=== PATIENT | male | born 1925 | race Caucasian/White ===

== ENCOUNTER → 2016-07-02 | Outpatient (CLI) | payer MEDICARE, BC | LOC: MW.CHIM 10:52 | PROVIDERS: ATTEND Internal Medicine | DX: E11.9 Type 2 diabetes mellitus without complications (principal); E78.5 Hyperlipidemia, unspecified; I10 Essential (primary) hypertension | CPT/HCPCS: 36415; 80053; 80061; 83036; 84439; 84443; 85025; 99214 ==

== ENCOUNTER 2017-03-22 08:50 | Observation (INO) | payer MEDICARE, BC ==
--- NOTE | 2017-03-22 08:54 | EDM.PDOC ---
ED HPI GENERAL MEDICAL PROBLEM - General Stated Complaint: HEAD INJURY FROM FALL Time Seen by Provider: 03/22/17 08:53 Source of Information: Reports: Patient - History of Present Illness INITIAL COMMENTS - FREE TEXT/NARRATIVE: HISTORY AND PHYSICAL: History of present illness: [Patient fell at home today he was standing in his bedroom doorway, he fell backwards striking his head on the bed frame with brief loss of consciousness reported by daughter. Patient has history of falls repeatedly recently there is a medication change with his primary care Dr. Prachi Fontana dropping one of his hypertension antihypertensive medications or believe amlodipine was stopped. He is on tamsulosin which may cause hypotension and syncope. He's had many falls in the past is also on a oral Keflex due to some sores on his legs from falling previously. At current complains of headache there is a dementia component as well as hard of hearing due to dementia component has trouble with short-term memory and relating recent events Denies fever nausea vomiting diarrhea constipation chest pain shortness breath headache dizziness palpitation denies bowel or urine symptoms he does wear depends which is also full of urine ] Review of systems: As per history of present illness and below otherwise all systems reviewed and negative. Past medical history: As per history of present illness and as reviewed below otherwise noncontributory. Surgical history: As per history of present illness and as reviewed below otherwise noncontributory. Social history: No reported history of drug or alcohol abuse. Family history: As per history of present illness and as reviewed below otherwise noncontributory. Physical exam: HEENT: Atraumatic, normocephalic, pupils reactive, negative for conjunctival pallor or scleral icterus, mucous membranes moist, throat clear, neck supple, nontender, trachea midline. Lungs: Clear to auscultation, breath sounds equal bilaterally, chest nontender. Heart: S1S2, regular, negative for clicks, rubs, or JVD. Abdomen: Soft, nondistended, nontender. Negative for masses or hepatosplenomegaly. Negative for costovertebral tenderness. Pelvis: Stable nontender. Genitourinary: Deferred. Rectal: Deferred. Extremities: Atraumatic, negative for cords or calf pain. Neurovascular unremarkable. Neuro: Awake, alert, oriented. Cranial nerves II through XII unremarkable. Cerebellum unremarkable. Motor and sensory unremarkable throughout. Exam nonfocal. Diagnostics: []Lab as below EKG Chest 1 view Pelvis [address] no contrast Cervical spine no contrast [employer]: []Admit to observation optimize medical management Richard Impression: Syncope []Fall Moderate calcification and carotids Possible tamsulosin the fact History of orthostatic hypotension History of previous cervical fracture Chronic history of baseline Definitive disposition and diagnosis as appropriate pending reevaluation and review of above. Head Pain Score (Numeric/FACES): 5 - Related Data Allergies Allergy/AdvReac Type Severity Reaction Status Date / Time No Known Allergies Allergy Unverified 03/22/17 09:15 Home Meds: Home Meds Allopurinol [Allopurinol] 100 mg PO DAILY 02/02/14 [History] Tamsulosin HCl [Tamsulosin HCl] 0.4 mg PO DAILY 02/02/14 [History] Levothyroxine [Synthroid] 50 mcg PO ACBREAKFAST 04/30/16 [History] Sertraline [Zoloft] 25 mg PO DAILY 04/30/16 [History] amLODIPine Besylate [Norvasc] 5 mg PO DAILY 04/30/16 [History] Past Medical History HEENT History: Reports: Hard of Hearing, Impaired Vision Cardiovascular History: Reports: High Cholesterol, Hypertension, Other (See Below) Other Cardiovascular History: hypotension Respiratory History: Reports: Other (See Below) Other Respiratory History: emphysema Genitourinary History: Reports: BPH Neurological History: Reports: Head Trauma Endocrine/Metabolic History: Reports: Diabetes, Type II, Hypothyroidism - Past Surgical History GI Surgical History: Reports: Other (See Below) Social & Family History - Family History Family Medical History: Unobtainable - Tobacco Use Smoking Status *Q: Never Smoker Second Hand Smoke Exposure: No - Caffeine Use Caffeine Use: Reports: None - Alcohol Use Days Per Week of Alcohol Use: 0 - Recreational Drug Use Recreational Drug Use: No ED ROS GENERAL - Review of Systems Review Of Systems: ROS reveals no pertinent complaints other than HPI. ED EXAM, GENERAL - Physical Exam Exam: See Below Course - Vital Signs Last Recorded V/S: Last Vital Signs Temp 96.8 F 03/22/17 09:22 Pulse 64 03/22/17 09:22 Resp 16 03/22/17 09:22 BP 173/75 H 03/22/17 09:22 Pulse Ox 94 L 03/22/17 09:22 - Orders/Labs/Meds Orders: Active Orders 24 hr Category Date Time Status EKG 12 Lead [EKG Documentation Completion] [RC] STAT Care 03/22/17 08:52 Active Orthostatic Vital Signs [RC] ASDIRECTED Care 03/22/17 10:07 Ordered UA W/MICROSCOPIC [URIN] Stat Lab 03/22/17 08:52 Uncollected Labs: Laboratory Tests 03/22/17 03/22/17 03/22/17 Range/Units 09:04 09:04 09:04 WBC 5.04 (4.0-11.0) K/uL RBC 4.03 L (4.50-5.90) M/uL Hgb 12.6 L (13.0-17.0) g/dL Hct 37.9 L (38.0-50.0) % MCV 94.0 (80.0-98.0) fL MCH 31.3 (27.0-32.0) pg MCHC 33.2 (31.0-37.0) g/dL RDW Std Deviation 49.6 (28.0-62.0) fl RDW Coeff of Pura 14 (11.0-15.0) % Plt Count 169 (150-400) K/uL MPV 9.10 (7.40-12.00) fL Neut % (Auto) 59.7 (48.0-80.0) % Lymph % (Auto) 28.6 (16.0-40.0) % Campbell % (Auto) 8.7 (0.0-15.0) % Eos % (Auto) 2.8 (0.0-7.0) % Baso % (Auto) 0.2 (0.0-1.5) % Neut # (Auto) 3.0 (1.4-5.7) K/uL Lymph # (Auto) 1.4 (0.6-2.4) K/uL Campbell # (Auto) 0.4 (0.0-0.8) K/uL Eos # (Auto) 0.1 (0.0-0.7) K/uL Baso # (Auto) 0.0 (0.0-0.1) K/uL Nucleated RBC % 0.0 /100WBC Nucleated RBCs # 0 K/uL INR 1.11 (0.86-1.11) Sodium 141 (136-146) mmol/L Potassium 4.3 (3.5-5.1) mmol/L Chloride 107 (98-110) mmol/L Carbon Dioxide 26 (21-31) mmol/L BUN 38 H (6.0-23.0) mg/dL Creatinine 1.7 H (0.6-1.5) mg/dL Est Cr Clr Drug Dosing TNP Estimated GFR (MDRD) 38.1 ml/min Glucose 96 (60-110) mg/dL Calcium 9.1 (8.8-10.8) mg/dL Total Bilirubin 0.6 (0.1-1.5) mg/dL AST 18 (5-40) IU/L ALT 14 (8-54) IU/L Alkaline Phosphatase 116 (40-150) Creatine Kinase 26 (9-236) IU/L CK-MB (CK-2) 1.3 (0-6.6) ng/ml Troponin I < 0.10 (0.0-0.29) NG/ML B-Natriuretic Peptide (<100) PG/ML Total Protein 6.5 (6.0-8.0) g/dL Albumin 3.1 L (3.4-4.8) g/dL Globulin 3.4 (2.0-3.5) g/dL Albumin/Globulin Ratio 0.9 L (1.3-2.8) 03/22/17 Range/Units 09:04 WBC (4.0-11.0) K/uL RBC (4.50-5.90) M/uL Hgb (13.0-17.0) g/dL Hct (38.0-50.0) % MCV (80.0-98.0) fL MCH (27.0-32.0) pg MCHC (31.0-37.0) g/dL RDW Std Deviation (28.0-62.0) fl RDW Coeff of Pura (11.0-15.0) % Plt Count (150-400) K/uL MPV (7.40-12.00) fL Neut % (Auto) (48.0-80.0) % Lymph % (Auto) (16.0-40.0) % Campbell % (Auto) (0.0-15.0) % Eos % (Auto) (0.0-7.0) % Baso % (Auto) (0.0-1.5) % Neut # (Auto) (1.4-5.7) K/uL Lymph # (Auto) (0.6-2.4) K/uL Campbell # (Auto) (0.0-0.8) K/uL Eos # (Auto) (0.0-0.7) K/uL Baso # (Auto) (0.0-0.1) K/uL Nucleated RBC % /100WBC Nucleated RBCs # K/uL INR (0.86-1.11) Sodium (136-146) mmol/L Potassium (3.5-5.1) mmol/L Chloride (98-110) mmol/L Carbon Dioxide (21-31) mmol/L BUN (6.0-23.0) mg/dL Creatinine (0.6-1.5) mg/dL Est Cr Clr Drug Dosing Estimated GFR (MDRD) ml/min Glucose (60-110) mg/dL Calcium (8.8-10.8) mg/dL Total Bilirubin (0.1-1.5) mg/dL AST (5-40) IU/L ALT (8-54) IU/L Alkaline Phosphatase (40-150) Creatine Kinase (9-236) IU/L CK-MB (CK-2) (0-6.6) ng/ml Troponin I (0.0-0.29) NG/ML B-Natriuretic Peptide 233 H (<100) PG/ML Total Protein (6.0-8.0) g/dL Albumin (3.4-4.8) g/dL Globulin (2.0-3.5) g/dL Albumin/Globulin Ratio (1.3-2.8) Departure - Departure Time of Disposition: 10:09 Disposition: Refer to Observation Condition: Fair Clinical Impression: Concussion with less than 1 hour loss of consciousness, Syncope - Discharge Information Referrals: Peng Cisneros MD [Primary Care Provider] - - My Orders Last 24 Hours: My Active Orders 03/22/17 08:52 EKG 12 Lead [EKG Documentation Completion] [RC] STAT UA W/MICROSCOPIC [URIN] Stat 03/22/17 10:07 Orthostatic Vital Signs [RC] ASDIRECTED - Assessment/Plan Last 24 Hours: My Active Orders 03/22/17 08:52 EKG 12 Lead [EKG Documentation Completion] [RC] STAT UA W/MICROSCOPIC [URIN] Stat 03/22/17 10:07 Orthostatic Vital Signs [RC] ASDIRECTED
[2017-03-22 09:34] LABS: CHLORIDE,CL 107 mmol/L (98-110); SODIUM,NA 141 mmol/L (136-146)
--- NOTE | 2017-03-22 09:47 | CT ---
EXAMINATION: Non contrast CT head. Coronal and sagittal reformats. HISTORY: Syncope FINDINGS: No evidence of intra or extra axial hemorrhage, mass, midline shift, hydrocephalus or edema. There i s moderate generalized atrophy. No hypoattenuation changes in the major vascular territories to suggest acute infarct. No abnormal intracranial calcifications are detected. No evidence of substantial vascular calcificat ions. Paranasal sinuses and mastoid air cells are well aerated without substantial findings. Orbits and gl obes are symmetric. Pituitary fossa appears unremarkable. Calvarium is intact. No evidence of skull fracture. Mild focal subcutaneous edema within the left par ietal region. IMPRESSION: 1. No acute intracranial findings. 2. Moderate generalized atrophy.
--- NOTE | 2017-03-22 09:51 | CT ---
EXAMINATION: CT cervical spine HISTORY: Syncope COMPARISON: None TECHNIQUE: Axial CT images obtained through the cervical spine without contrast. Coronal and sagittal reconstructions obtained. FINDINGS: There is a chronic nonhealed fracture of the dens with fusion of the superior aspect to the anterior arch of C1. There is partial osseous fusion of C3 and C4 following the vertebral bodies, th ere is facet fusion from C2 to C5. There is reversal of the normal cervical lordosis. There is no def inite acute fracture. Bone mineralization appears normal to mildly osteopenic. Moderate calcification s noted within the superior internal carotid arteries. The lung apices are clear. IMPRESSION: 1. Moderate degenerative changes with multilevel fusion without acute osseous abnormality. 2. Chronic nonunited fracture of the dens. 3. Moderate internal carotid calcifications.
--- NOTE | 2017-03-22 09:53 | CR ---
EXAMINATION: AP chest radiograph. HISTORY: Syncope. FINDINGS: The trachea is midline. The cardiomediastinal silhouette is within normal limits. No pulmonary infilt rates, effusions or pneumothorax. Mild interstitial prominence. The aortic knob is prominent, likely accentuated by technique. Osseous structures appear unremarkable. IMPRESSION: No acute cardiopulmonary process.
--- NOTE | 2017-03-22 09:57 | CR ---
EXAMINATION: Pelvis HISTORY: Syncope COMPARISON: 01/23/2016 TECHNIQUE: AP views FINDINGS: There is advanced osteoarthritic changes and joint space narrowing within the right hip. Th ere is no definite fracture or dislocation. Bone mineralization appears mildly osteopenic. Fusion of the SI joints noted. The iliopectineal lines are intact. IMPRESSION: 1. No definite acute osseous abdomen. 2. 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
--- NOTE | 2017-03-22 12:18 | PCM.HP ---
Addendum entered and electronically signed by Chiara Jean NP 03/22/17 16:44 : EKG in ED revealed SR 57 with LBBB, which is no change from 04/2016 Original Note: H&P History of Present Illness - General Date of Service: 03/22/17 Admit Problem/Dx: Fall, syncope - History of Present Illness Initial Comments - Free Text/Narative: This 89 year old male with pmh of BPH, HTN, dementia and frequent falls at home presented to the ED today with a concern for syncope. He reportedly was standing at his bedroom doorway and feel backwards, hitting his head on the bed frame with a brief LOC, per his daughter's report. Daughter is not available at this time, but will be back later this afternoon. Patient is poor historian due to dementia. Denies any chest pain, SOB or abdominal pain. Does have a headache and pointed to behind L ear as to where is hurts. [place]. He denies dizziness or lightheadedness. He recently was seen, 03/[address] Cisneros's office, his PCP for frequent falls and chronic orthostasis. His Amlodipine was discontinued and leaving Tamsulosin for HTN and BPH. He has had falls in the past and has abrasions to bilateral knees, which he was also placed on Keflex 500 mg Q6hrs for cellulitis. In ED CBC WNL, BMP Cr 1.7 and BUN 38 which is baseline. BNP 233, Head CT negative did show some subcutaneous soft tissue edema to L parietal region. Cervical CT negative. CXR negative and Pelvic Xray negative as well. R knee xray negative as well for fracture or dislocation. Orthostasis noted on VS. Supine 189/75, sitting 154/74, standing 140/83. He will be admitted for syncope likely caused by orthostasis. PCP, Dr Cisneros. Discussed with daughter Winsome and regarding fall at home. The daughter reports he falls a lot at home, this is nothing new. He has been complaining of dizziness and headache to his daughter. The headache is normally at bedtime. The abrasions to his legs are from his toe nail scratching his legs at night. He normally is incontinent at night and voids well normally. The daughter reports he was on another medication for BPH a few years ago and that was stopped because of falling but the Tamsulosin was kept. Head Pain Score (Numeric/FACES): 5 - Related Data Allergies/Adverse Reactions: Allergies Allergy/AdvReac Type Severity Reaction Status Date / Time No Known Allergies Allergy Unverified 03/22/17 09:15 Home Medications: Home Meds Albuterol Sulfate 5 mg IH Q4HR 03/22/17 [History] Allopurinol [Zyloprim] 100 mg PO DAILY 03/22/17 [History] Cephalexin [IJP: Cephalexin] 500 mg PO .EVERY 8 HOURS 03/22/17 [History] Levothyroxine Sodium [Levo-T] 50 mcg PO DAILY 03/22/17 [History] Sertraline HCl 25 mg PO DAILY 03/22/17 [History] Tamsulosin [Flomax] 0.4 mg PO ONETIME 03/22/17 [History] Past Medical History HEENT History: Reports: Hard of Hearing, Impaired Vision Cardiovascular History: Reports: High Cholesterol, Hypertension, Other (See Below) Other Cardiovascular History: hypotension Respiratory History: Reports: Other (See Below) Other Respiratory History: emphysema Genitourinary History: Reports: BPH Musculoskeletal History: Reports: Other (See Below) (Hx of cervical fracture, C2 ) Neurological History: Reports: Head Trauma Endocrine/Metabolic History: Reports: Diabetes, Type II, Hypothyroidism - Past Surgical History GI Surgical History: Reports: Other (See Below) Social & Family History - Family History Family Medical History: Unobtainable - Tobacco Use Smoking Status *Q: Never Smoker Second Hand Smoke Exposure: No - Caffeine Use Caffeine Use: Reports: Coffee - Alcohol Use Days Per Week of Alcohol Use: 0 - Recreational Drug Use Recreational Drug Use: No - Living Situation & Occupation Living situation: Reports: with Family Occupation: Retired H&P Review of Systems - Review of Systems: Review Of Systems: See Below General: Denies: Fever, Chills HEENT: Reports: Headaches (points to behind L ear) Pulmonary: Reports: Cough. Denies: Shortness of Breath, Sputum Cardiovascular: Reports: Blood Pressure Problem. Denies: Chest Pain, Edema Gastrointestinal: Reports: No Symptoms, Flatus. Denies: Abdominal Pain, Black Stool, Bloody Stool, Nausea, Vomiting Exam - Exam Exam: See Below - Vital Signs Vital Signs: Last Vital Signs Temp 96.8 F 03/22/17 09:22 Pulse 64 03/22/17 09:22 Resp 16 03/22/17 09:22 BP 173/75 H 03/22/17 09:22 Pulse Ox 94 L 03/22/17 09:22 - Exam General: Alert, Cooperative. No: Oriented HEENT: Conjunctiva Clear, Nares Patent, Other (very [place]) Neck: Supple, Trachea Midline Lungs: Clear to Auscultation, Normal Respiratory Effort Cardiovascular: Regular Rate, Regular Rhythm GI/Abdominal Exam: Normal Bowel Sounds, Soft, Non-Tender, No Organomegaly, No Distention, No Abnormal Bruit, No Mass, Pelvis Stable Extremities: Normal Inspection, Normal Range of Motion, Non-Tender Skin: Wound (abrasion and healing wounds noted along L zapata and 1 x 1 in scab noted to lateral lower leg, dry, no necrotic tissue, scant surrounding erythema. tender to palpation. No drainage or edema. ) Neurological: Strength Equal Bilateral, Normal Speech Neuro Extensive - Mental Status: Alert, Normal Mood/Affect, Memory Loss-Remote Events, Memory Loss-Recent Events. No: Oriented x3 Neuro Extensive - Motor, Sensory, Reflexes: CN II-XII Intact Psychiatric: Alert, Normal Affect, Normal Mood - Patient Data Result Diagrams: 03/22/17 09:04 03/22/17 09:04 *Q Meaningful Use (ADM) - VTE *Q VTE Criteria *Q: - Stroke *Q Stroke Criteria *Q: - AMI *Q AMI Criteria *Q: - Problem List (1) Syncope SNOMED Code(s): 423412147 ICD Code: R55 - SYNCOPE AND COLLAPSE Status: Acute Current Visit: Yes (2) Fall from ground level SNOMED Code(s): 95256528 ICD Code: W18.30XA - FALL ON SAME LEVEL, UNSPECIFIED, INITIAL ENCOUNTER Status: Acute Current Visit: No (3) Concussion with less than 1 hour loss of consciousness SNOMED Code(s): 050900223 ICD Code: S06.0X9A - CONCUSSION W LOSS OF CONSCIOUSNESS OF UNSP DURATION, INIT Status: Acute Current Visit: Yes (4) History of cervical fracture SNOMED Code(s): 208029254 ICD Code: Z87.81 - PERSONAL HISTORY OF (HEALED) TRAUMATIC FRACTURE Status: Chronic Current Visit: Yes (5) Dementia SNOMED Code(s): 69164930 ICD Code: F03.90 - UNSPECIFIED DEMENTIA WITHOUT BEHAVIORAL DISTURBANCE Status: Chronic Current Visit: Yes (6) Frequent falls SNOMED Code(s): 163167259 ICD Code: R29.6 - REPEATED FALLS Status: Chronic Current Visit: Yes (7) BPH (benign prostatic hyperplasia) SNOMED Code(s): 055161467 ICD Code: N40.0 - BENIGN PROSTATIC HYPERPLASIA WITHOUT LOWER URINRY TRACT SYMP Status: Chronic Current Visit: Yes (8) HTN (hypertension) SNOMED Code(s): 63883547 ICD Code: I10 - ESSENTIAL (PRIMARY) HYPERTENSION Status: Chronic Current Visit: Yes Qualifiers: Hypertension type: essential hypertension Qualified Code(s): I10 - Essential (primary) hypertension (9) Emphysema SNOMED Code(s): 97107402 ICD Code: J43.9 - EMPHYSEMA, UNSPECIFIED Status: Chronic Current Visit: Yes Problem List Initiated/Reviewed/Updated: Yes Orders Last 24hrs: Active Orders 24 hr Category Date Time Status Telemetry Monitoring [Cardiac Monitoring] [RC] Q8H Care 03/22/17 11:09 Active Assessment/Plan Comment:: This 89 year old male admitted with syncope and fall at home 1. Syncope: Likely related to Orthostasis which could be related to Tamsulosin. Will hold this for now. Will monitor BP, may need to restart Amlodipine which was recently stopped. Consult PT. Orthostatic VS Qshift. No signs of dehydration. Encourage PO intake. Daughter reports possible desaturation with hx emphysema, will monitor oxygen. 2. HTN: Monitor as above may need to restart Amlodipine 3. Falls: PT consulted. Will speak with Daughter when available as to any services she may need, such as Home Health. Daughter reports this would be good to have some PT at home. 4. Abrasions to L zapata: Scant erythema, continue Keflex as prescribed by PCP for now. No leukocytosis VTE prophylaxis: SCDs only for now due to frequent falls and recent head trauma Dispo: 1-2 days pending improvement.
--- NOTE | 2017-03-22 12:57 | CR ---
EXAMINATION: Right knee HISTORY: Pain COMPARISON: None TECHNIQUE: 3 views FINDINGS/IMPRESSION: There is moderate joint space narrowing within the medial compartment and less s o within the patellar and lateral compartments. Chondrocalcinosis is noted. Bone mineralization appea rs mildly osteopenic. No fracture, dislocation, or joint effusion.
[2017-03-22] MEDS: Acetaminophen 325 MG Tab PO PRN (14:26)
[2017-03-22] MEDS ORDERED: Albuterol 0.083% 2.5 MG/3 ML Neb Soln INH PRN (15:17)
[2017-03-22] MEDS ORDERED: Ondansetron 4 MG/2 ML SDV IVPUSH PRN (15:21)
[2017-03-22] MEDS: Cephalexin 500 MG Cap PO SCH ×2 (15:53→23:28)
[2017-03-23] MEDS: Cephalexin 500 MG Cap PO SCH ×3 (06:38→22:41)
[2017-03-23] MEDS: Levothyroxine 50 MCG Tab PO SCH (06:38)
[2017-03-23] MEDS: Sertraline 25 MG Tab PO SCH (08:12)
[2017-03-23] MEDS: Allopurinol 100 MG Tab PO SCH (08:12)
[2017-03-23] MEDS: amLODIPine 5 MG Tab PO SCH (10:48)
--- NOTE | 2017-03-23 10:57 | PCM.PN ---
- General Info Date of Service: 03/23/17 Admission Dx/Problem (Free Text): Fall, syncope Subjective Update: Doing well this morning, no complaints of dizziness or lightheadedness. Small headache but reports it is better. Daughter at bedside. He denies chest pain or SOB Functional Status: Reports: Pain Controlled, Tolerating Diet, Ambulating, Urinating - Review of Systems General: Reports: No Symptoms. Denies: Fever HEENT: Reports: Headaches. Denies: Eye Pain, Sore Throat, Visual Changes Pulmonary: Reports: No Symptoms. Denies: Shortness of Breath Cardiovascular: Reports: No Symptoms. Denies: Chest Pain Gastrointestinal: Reports: No Symptoms. Denies: Abdominal Pain, Nausea, Vomiting Genitourinary: Reports: Incontinence. Denies: Dysuria, Frequency, Burning - Patient Data Vitals - Most Recent: Last Vital Signs Temp 96.3 F 03/23/17 08:00 Pulse 51 L 03/23/17 08:00 Resp 22 H 03/23/17 08:00 BP 159/71 H 03/23/17 10:48 Pulse Ox 91 L 03/23/17 08:00 Orthostatic Blood Pressure [ 111/51 Standing] Orthostatic Blood Pressure [ 151/69 Sitting] Orthostatic Blood Pressure [ 159/71 Supine] Weight - Most Recent: 70.76 kg I&O - Last 24 Hours: Intake & Output 03/22/17 03/23/17 03/23/17 22:59 06:59 14:59 Intake Total 600 836 Output Total 495 Balance 600 341 Med Orders - Current: Current Medications Acetaminophen (Tylenol) 650 mg PO Q6H PRN PRN Reason: Pain Last Admin: 03/22/17 14:26 Dose: 650 mg Albuterol (Proventil Neb Soln) 5 mg INH Q4HR PRN PRN Reason: SOB/wheezing Allopurinol (Zyloprim) 100 mg PO DAILY [facility] Last Admin: 03/23/17 08:12 Dose: 100 mg Amlodipine Besylate (Norvasc) 10 mg PO DAILY [facility] Last Admin: 03/23/17 10:48 Dose: 10 mg Cephalexin (Keflex) 500 mg PO Q8H [facility] Last Admin: 03/23/17 06:38 Dose: 500 mg Levothyroxine Sodium (Synthroid) 50 mcg PO ACBREAKFAST [facility] Last Admin: 03/23/17 06:38 Dose: 50 mcg Ondansetron HCl (Zofran) 4 mg IVPUSH Q4H PRN PRN Reason: Nausea Sertraline HCl (Zoloft) 25 mg PO DAILY [facility] Last Admin: 03/23/17 08:12 Dose: 25 mg - Exam Quality Assessment: Supplemental Oxygen General: Alert, Oriented, Cooperative Neck: Supple Lungs: Clear to Auscultation, Normal Respiratory Effort Cardiovascular: Regular Rate, Regular Rhythm GI/Abdominal Exam: Normal Bowel Sounds, Soft, Non-Tender, No Organomegaly, No Distention, No Abnormal Bruit, No Mass, Pelvis Stable Extremities: Normal Inspection, Normal Range of Motion, Non-Tender, No Pedal Edema, Normal Capillary Refill Wound/Incisions: No Drainage (L lower extremity), Erythema Improving Psy/Mental Status: Alert, Normal Affect, Normal Mood - Problem List & Annotations (1) Orthostasis SNOMED Code(s): 989680605 Code(s): I95.1 - ORTHOSTATIC HYPOTENSION Status: Acute Current Visit: Yes (2) Syncope SNOMED Code(s): 524550557 Code(s): R55 - SYNCOPE AND COLLAPSE Status: Acute Current Visit: Yes (3) Fall from ground level SNOMED Code(s): 26350935 Code(s): W18.30XA - FALL ON SAME LEVEL, UNSPECIFIED, INITIAL ENCOUNTER Status: Acute Current Visit: No (4) Concussion with less than 1 hour loss of consciousness SNOMED Code(s): 214412700 Code(s): S06.0X9A - CONCUSSION W LOSS OF CONSCIOUSNESS OF UNSP DURATION, INIT Status: Acute Current Visit: Yes (5) History of cervical fracture SNOMED Code(s): 639350957 Code(s): Z87.81 - PERSONAL HISTORY OF (HEALED) TRAUMATIC FRACTURE Status: Chronic Current Visit: Yes (6) Dementia SNOMED Code(s): 20361009 Code(s): F03.90 - UNSPECIFIED DEMENTIA WITHOUT BEHAVIORAL DISTURBANCE Status: Chronic Current Visit: Yes (7) Frequent falls SNOMED Code(s): 094088375 Code(s): R29.6 - REPEATED FALLS Status: Chronic Current Visit: Yes (8) BPH (benign prostatic hyperplasia) SNOMED Code(s): 241855606 Code(s): N40.0 - BENIGN PROSTATIC HYPERPLASIA WITHOUT LOWER URINRY TRACT SYMP Status: Chronic Current Visit: Yes (9) HTN (hypertension) SNOMED Code(s): 49136292 Code(s): I10 - ESSENTIAL (PRIMARY) HYPERTENSION Status: Chronic Current Visit: Yes Qualifiers: Hypertension type: essential hypertension Qualified Code(s): I10 - Essential (primary) hypertension (10) Emphysema SNOMED Code(s): 33196773 Code(s): J43.9 - EMPHYSEMA, UNSPECIFIED Status: Chronic Current Visit: Yes - Problem List Review Problem List Initiated/Reviewed/Updated: Yes - My Orders Last 24 Hours: My Active Orders 03/22/17 14:19 Acetaminophen [Tylenol] 650 mg PO Q6H PRN 03/22/17 15:13 Consult to Physical Therapy [PT Evaluation and Treatment] [CONS] Routine 03/22/17 15:17 Albuterol [Proventil Neb Soln] 5 mg INH Q4HR PRN 03/22/17 15:21 Oxygen Therapy [RC] PRN Up With Assistance [RC] ASDIRECTED VTE/DVT Education [RC] PER UNIT ROUTINE Vital Signs [RC] Q4H Ondansetron [Zofran] 4 mg IVPUSH Q4H PRN 03/22/17 15:22 Antiembolic Devices [RC] PER UNIT ROUTINE Intake and Output [RC] QSHIFT Sequential Compression Device [OM.PC] Per Unit Routine 03/22/17 15:30 Cephalexin [Keflex] 500 mg PO Q8H 03/22/17 16:28 Resuscitation Status Routine 03/22/17 Lunch Heart Healthy Diet [DIET] 03/23/17 07:30 Levothyroxine [Synthroid] 50 mcg PO ACBREAKFAST 03/23/17 08:09 Orthostatic Vital Signs [RC] ASDIRECTED 03/23/17 08:44 Communication Order [RC] PRN 03/23/17 09:00 Allopurinol [Zyloprim] 100 mg PO DAILY Sertraline [Zoloft] 25 mg PO DAILY amLODIPine [Norvasc] 10 mg PO DAILY - Plan Plan:: This 89 year old male admitted with syncope and fall at home 1. Syncope: Continues to be Orthostatic this morning, will give 1 l NS this morning. Monitor today. Tamsulosin discontinued. Restart Amlodipine 10 mg today , per recommendations of Dr Cardona. Consult PT. Orthostatic VS Qshift. Encourage PO intake. 2. HTN: Restart Amlodipine at 10 mg daily. Monitor. 3. Falls: PT consulted. Will speak with Daughter when available as to any services she may need, such as Home Health. Daughter reports this would be good to have some PT at home. 4. Abrasions to L zapata: Improving. Continue Keflex as prescribed by PCP for now. VTE prophylaxis: SCDs only for now due to frequent falls and recent head trauma Dispo: 1-2 days pending improvement.
[2017-03-23] MEDS ORDERED: Sodium Chloride 0.9% 1,000 ML IV SCH (11:00)
[2017-03-23] MEDS: Acetaminophen 325 MG Tab PO PRN (14:35)
[2017-03-24] MEDS: Levothyroxine 50 MCG Tab PO SCH (07:38)
[2017-03-24] MEDS: Cephalexin 500 MG Cap PO SCH (07:39)
--- NOTE | 2017-03-24 08:09 | PCM.DCSUM1 ---
Discharge Summary - Hospital Course Brief History: This 89 year old male with pmh of BPH, HTN, dementia and frequent falls at home presented to the ED with a concern for syncope. He reportedly was standing at his bedroom doorway and feel backwards, hitting his head on the bed frame with a brief LOC, per his daughter's report. Daughter is not available at this time, but will be back later this afternoon. Patient is poor historian due to dementia. Denies any chest pain, SOB or abdominal pain. Does have a headache and pointed to behind L ear as to where is hurts. Very [place]. He denies dizziness or lightheadedness. He recently was seen, 03/[address] Cisneros's office, his PCP for frequent falls and chronic orthostasis. His Amlodipine was discontinued and leaving Tamsulosin for HTN and BPH. He has had falls in the past and has abrasions to bilateral knees, which he was also placed on Keflex 500 mg Q6hrs for cellulitis. In ED CBC WNL, BMP Cr 1.7 and BUN 38 which is baseline. BNP 233, Head CT negative did show some subcutaneous soft tissue edema to L parietal region. Cervical CT negative. CXR negative and Pelvic Xray negative as well. R knee xray negative as well for fracture or dislocation. Orthostasis noted on VS. Supine 189/75, sitting 154/74, standing 140/83. He will be admitted for syncope likely caused by orthostasis. PCP, Dr Cisneros. Discussed with daughter Winsome and regarding fall at home. The daughter reports he falls a lot at home, this is nothing new. He has been complaining of dizziness and headache to his daughter. The headache is normally at bedtime. The abrasions to his legs are from his toe nail scratching his legs at night. He normally is incontinent at night and voids well normally. The daughter reports he was on another medication for BPH a few years ago and that was stopped because of falling but the Tamsulosin was kept. - Discharge Data Discharge Date: 03/24/17 Discharge Disposition: Home, W Home Health Agency 06 Condition: Good - Discharge Diagnosis/Problem(s) (1) Orthostasis SNOMED Code(s): 265575477 ICD Code: I95.1 - ORTHOSTATIC HYPOTENSION Status: Acute Current Visit: Yes (2) Syncope SNOMED Code(s): 974517983 ICD Code: R55 - SYNCOPE AND COLLAPSE Status: Acute Current Visit: Yes (3) Fall from ground level SNOMED Code(s): 81237317 ICD Code: W18.30XA - FALL ON SAME LEVEL, UNSPECIFIED, INITIAL ENCOUNTER Status: Acute Current Visit: No (4) Concussion with less than 1 hour loss of consciousness SNOMED Code(s): 473246023 ICD Code: S06.0X9A - CONCUSSION W LOSS OF CONSCIOUSNESS OF UNSP DURATION, INIT Status: Acute Current Visit: Yes (5) History of cervical fracture SNOMED Code(s): 632658918 ICD Code: Z87.81 - PERSONAL HISTORY OF (HEALED) TRAUMATIC FRACTURE Status: Chronic Current Visit: Yes (6) Dementia SNOMED Code(s): 52905848 ICD Code: F03.90 - UNSPECIFIED DEMENTIA WITHOUT BEHAVIORAL DISTURBANCE Status: Chronic Current Visit: Yes (7) Frequent falls SNOMED Code(s): 956264834 ICD Code: R29.6 - REPEATED FALLS Status: Chronic Current Visit: Yes (8) BPH (benign prostatic hyperplasia) SNOMED Code(s): 117392777 ICD Code: N40.0 - BENIGN PROSTATIC HYPERPLASIA WITHOUT LOWER URINRY TRACT SYMP Status: Chronic Current Visit: Yes (9) HTN (hypertension) SNOMED Code(s): 20036824 ICD Code: I10 - ESSENTIAL (PRIMARY) HYPERTENSION Status: Chronic Current Visit: Yes Qualifiers: Hypertension type: essential hypertension Qualified Code(s): I10 - Essential (primary) hypertension (10) Emphysema SNOMED Code(s): 84324970 ICD Code: J43.9 - EMPHYSEMA, UNSPECIFIED Status: Chronic Current Visit: Yes - Patient Summary/Data Consults: Consultations 03/22/17 15:13 Consult to Physical Therapy [PT Evaluation and Treatment] [CONS] Routine - Patient Instructions Diet: Drink 8-10+ Glasses/Day Activity: As Tolerated Driving: Do Not Drive Showering/Bathing: May Shower Notify Provider of: Fever, Increased Pain, Swelling and Redness, Drainage, Nausea and/or Vomiting Other/Special Instructions: Compression stockings. - Discharge Plan Prescriptions/Med Rec: amLODIPine [Norvasc] 5 mg PO DAILY #30 tablet Home Medications: Home Meds Albuterol Sulfate 5 mg IH Q4HR 03/22/17 [History] Allopurinol [Zyloprim] 100 mg PO DAILY 03/22/17 [History] Levothyroxine Sodium [Levo-T] 50 mcg PO DAILY 03/22/17 [History] Sertraline HCl 25 mg PO DAILY 03/22/17 [History] Cephalexin [IJP: Cephalexin] 500 mg PO .EVERY 8 HOURS #0 03/24/17 [Rx] amLODIPine [Norvasc] 5 mg PO DAILY #30 tablet 03/24/17 [Rx] Patient Handouts: Syncope, [id number] Referrals: Peng Cisneros MD [Primary Care Provider] - 03/31/17 8:30 am - Discharge Summary/Plan Comment DC Time >30 min.: No Discharge Summary/Plan Comment: Discharge Diagnoses: Acute on chronic Orthostasis Fall with head trauma Syncope BPH Emphysema Incontinent Limited mobility Carlos was admitted for syncope and fall with head trauma. He was noted to be on Tamsulosin, which was discontinued due to orthostasis noted. He was given 1 L fluid, which helped Orthostasis. He is known to have this chronically after review of clinic records. He was started back on Amlodipine 10 mg initially due to BP being 160-180 SBP, today BP 114 SBP, will back off to home dosing of 5 mg daily. He has been up ambulating with PT well. He does need walker with moderate assistance. I have ordered for a gait belt to be provided so daughter is able to assist him safely upon ambulation and limit falling episodes. He has a slight headache still, no CT findings of bleeding. L Parietal region tender to palpation. He will be discharged home today with all home medications restarted, except for Tamsulosin. He is to follow up with PCP in 1 week. He will also be sent home with Home Health. He is in need of intermediate care to monitor his blood pressures more carefully and medications. He would also benefit from PT to evaluate and treat due to deconditioning, unsteady gait and orthostasis. He is homebound mainly and is unable to leave the house unless the area transit is called and needs caregiver plus assistive device to ambulate. Home Health care plan to be followed by Dr Cisneros, PCP. He is to return to ED or clinic if concerns should arise. Daughter updated and is agreeable for discharge home. - General Info Date of Service: 03/24/17 Admission Dx/Problem (Free Text: Fall, syncope Subjective Update: Doing well this morning, scant headache. No chest pain or SOB. Feeling good. Functional Status: Reports: Pain Controlled, Tolerating Diet, Ambulating, Urinating - Review of Systems Pulmonary: Reports: No Symptoms. Denies: Shortness of Breath, Cough, Sputum Cardiovascular: Reports: No Symptoms. Denies: Chest Pain, Edema Genitourinary: Reports: Incontinence Musculoskeletal: Reports: No Symptoms. Denies: Neck Pain Psychiatric: Reports: No Symptoms. Denies: Confusion - Patient Data Vitals - Most Recent: Last Vital Signs Temp 96.9 F 03/24/17 07:45 Pulse 57 L 03/24/17 07:45 Resp 18 03/24/17 07:45 BP 125/61 03/24/17 00:00 Pulse Ox 95 03/24/17 07:45 Orthostatic Blood Pressure [ 140/62 Standing] Orthostatic Blood Pressure [ 147/66 Sitting] Orthostatic Blood Pressure [ 153/69 Supine] Weight - Most Recent: 70.76 kg I&O - Last 24 hours: Intake & Output 03/23/17 03/24/17 03/24/17 22:59 06:59 14:59 Intake Total 2044 1080 Balance 2044 1080 Med Orders - Current: Current Medications Acetaminophen (Tylenol) 650 mg PO Q6H PRN PRN Reason: Pain Last Admin: 03/23/17 14:35 Dose: 650 mg Albuterol (Proventil Neb Soln) 5 mg INH Q4HR PRN PRN Reason: SOB/wheezing Allopurinol (Zyloprim) 100 mg PO DAILY [facility] Last Admin: 03/23/17 08:12 Dose: 100 mg Amlodipine Besylate (Norvasc) 10 mg PO DAILY [facility] Last Admin: 03/23/17 10:48 Dose: 10 mg Cephalexin (Keflex) 500 mg PO Q8H [facility] Last Admin: 03/24/17 07:39 Dose: 500 mg Levothyroxine Sodium (Synthroid) 50 mcg PO ACBREAKFAST [facility] Last Admin: 03/24/17 07:38 Dose: 50 mcg Ondansetron HCl (Zofran) 4 mg IVPUSH Q4H PRN PRN Reason: Nausea Sertraline HCl (Zoloft) 25 mg PO DAILY [facility] Last Admin: 03/23/17 08:12 Dose: 25 mg Discontinued Medications Sodium Chloride (Normal Saline) 1,000 mls @ 100 mls/hr IV ASDIRECTED TED Stop: 03/23/17 20:59 Last Admin: 03/23/17 13:23 Dose: 100 mls/hr - Exam General: Reports: Alert, Cooperative, No Acute Distress. Denies: Oriented Neck: Reports: Other (tenderness to L parietal region, no bruising noted. But this is where he hit his head during fall. ) Lungs: Reports: Clear to Auscultation, Normal Respiratory Effort Cardiovascular: Reports: Regular Rate, Regular Rhythm GI/Abdominal Exam: Normal Bowel Sounds, Soft, Non-Tender, No Organomegaly, No Distention, No Abnormal Bruit, No Mass, Pelvis Stable Extremities: Normal Inspection, Normal Range of Motion, Non-Tender, No Pedal Edema, Normal Capillary Refill Wound/Incisions: Reports: Healing Well, Erythema Improving (Healing abrasions to anterior L zapata, continue antibiotics prescribed as outpatient until gone. No concerns of cellulitis. ) Neurological: Reports: No New Focal Deficit, Normal Speech, Strength Equal Bilateral Psy/Mental Status: Reports: Alert, Normal Affect, Normal Mood *Q Meaningful Use (DIS) - VTE *Q VTE Criteria *Q: - Stroke *Q Stroke Criteria *Q: - AMI *Q AMI Criteria *Q:
[2017-03-24] MEDS: Sertraline 25 MG Tab PO SCH (09:39)
[2017-03-24] MEDS: Allopurinol 100 MG Tab PO SCH (09:39)
[2017-03-24] MEDS: amLODIPine 5 MG Tab PO SCH (09:42)
[2017-03-24 09:43] VITALS: BP 114/46
== END 2017-03-24 13:15 | disposition home health service (06) ==
LOC: MW.ED 08:50 → MW.MS 11:17
PROVIDERS: ADMIT Internal Medicine; ATTEND Internal Medicine
DX: S06.9X9A Unspecified intracranial injury with loss of consciousness of unspecified duration, initial encounter (principal); I95.1 Orthostatic hypotension; F03.90 Unspecified dementia, unspecified severity, without behavioral disturbance, psychotic disturbance, mood disturbance, and anxiety; I10 Essential (primary) hypertension; N40.0 Benign prostatic hyperplasia without lower urinary tract symptoms; I44.7 Left bundle-branch block, unspecified; E78.00 Pure hypercholesterolemia, unspecified; E11.9 Type 2 diabetes mellitus without complications; J43.9 Emphysema, unspecified; L03.116 Cellulitis of left lower limb; R29.6 Repeated falls; W18.30XA Fall on same level, unspecified, initial encounter; Z91.81 History of falling; Z79.899 Other long term (current) drug therapy; Z98.890 Other specified postprocedural states; Z87.81 Personal history of (healed) traumatic fracture
CPT/HCPCS: 36415; 70450; 71010; 72125; 72170; 73562; 80053; 82550; 82553; 83880; 84484; 85025; 85610; 93005; 97161; 97530; 99285; A9270; J7040; 96360; 96361; 99284; G0378

== ENCOUNTER 2017-05-19 14:20 | Observation (INO) | payer MEDICARE, BC ==
--- NOTE | 2017-05-19 14:36 | EDM.PDOC ---
ED HPI GENERAL MEDICAL PROBLEM - General Stated Complaint: AMBULANCE Time Seen by Provider: 05/19/17 14:20 Source of Information: Reports: Patient, EMS History Limitations: Reports: No Limitations - History of Present Illness INITIAL COMMENTS - FREE TEXT/NARRATIVE: HISTORY AND PHYSICAL: History of present illness: Patient 89-year-old male who presents to the emergency room today with complaints of weakness and facial drooping. Family states over the past 2 days he has been talking more than normal, making nonsensical statements, not sleeping, has been diaphoretic but cool to the touch and generalized weakness. The patient lives with his and daughter who state that these symptoms have progressively gotten worse. Today the daughter noted that was drooling and proceeded to call the ambulance. She denies any change in vision, headache, chest pain, shortness of breath. Patient has a history of TIA/stroke several years ago according to the daughter. History of hypertension, edema, hypothyroidism, diabetes type 2 (just now resolved and is no longer taking any medications). Review of systems: As per history of present illness and below otherwise all systems reviewed and negative. Past medical history: As per history of present illness and as reviewed below otherwise noncontributory. Surgical history: As per history of present illness and as reviewed below otherwise noncontributory. Social history: No reported history of drug or alcohol abuse. Family history: As per history of present illness and as reviewed below otherwise noncontributory. Physical exam: General: Well-developed and well nourished 89-year-old male. Alert and disoriented, making nonsensical statements. The range HEENT: Atraumatic, normocephalic, pupils reactive, negative for conjunctival pallor or scleral icterus, mucous membranes moist, throat clear, neck supple, nontender, trachea midline. Lungs: Clear to auscultation, breath sounds equal bilaterally, chest nontender. Heart: S1S2, regular rate and rhythm Abdomen: Soft, nondistended, nontender. Negative for masses or hepatosplenomegaly. Negative for costovertebral tenderness. Pelvis: Stable nontender. Genitourinary: Deferred. Rectal: Deferred. Extremities: Able to move all extremities per self. Does have weakness noted to the left upper extremity, grasp is weaker on the left than the right. Able to put both arms straight out in front but left arm does drift. Able to lift both lower extremities up off the bed but only for 1- 2 seconds. Neurovascular unremarkable. Neuro: Awake, alert, disoriented. NIH score of 5. Slight left sided facial drooping. Slurred speech noted. Left sided weakness of both upper and lower extremity. Daughter and are at the bedside. They state his normal is easily very quiet and ambulatory with assistance. The daughter states that he does receive home health care which they come in once a week. Yesterday he was evaluated by home health care nurse and at that time had complained of weakness and "low blood pressure". The family reports that he has had the symptoms as mentioned previously for about 2 days which have progressively gotten worse. The daughter states he has been talking more than his normal and making nonsensical statements. EMS states that he was rearranging words when asked to repeat a simple statement. Initially the EMS states that he had right-sided weakness. Upon arrival I note left sided facial droop, and left-sided upper extremity weakness. He was able to use his right arm appropriately when taking off his T- shirt. 1440- preliminary report from the radiologist states that there is a negative head CT with no acute findings. Patient's vital signs are stable. No neurological changes at this time. Dr. George was consulted on this case. He is agreeable to admit this patient for observation to treat. Patient and family members are aware and agreeable to stay. No change in patient's status at this time. Diagnostics: CBC, CMP, troponin, EKG, one view chest x-ray, TSH, UA, PT INR, head CT Therapeutics: IV fluid Impression: Rule out stroke Plan: 1. Observation admission to [facility] with telemetry Definitive disposition and diagnosis as appropriate pending reevaluation and review of above. Onset: Unknown/Unsure Duration: Day(s): Location: Reports: Upper Extremity, Left, Lower Extremity, Left Associated Symptoms: Reports: Confusion, Weakness. Denies: Chest Pain, Cough, cough w sputum, Diaphoresis, Fever/Chills, Headaches, Loss of Appetite, Malaise , Nausea/Vomiting, Rash, Seizure, Shortness of Breath, Syncope - Related Data Allergies Allergy/AdvReac Type Severity Reaction Status Date / Time No Known Allergies Allergy Verified 05/19/17 14:31 Home Meds: Home Meds Allopurinol [Zyloprim] 100 mg PO DAILY 03/22/17 [History] Levothyroxine Sodium [Levo-T] 50 mcg PO DAILY 03/22/17 [History] Sertraline HCl 25 mg PO DAILY 03/22/17 [History] amLODIPine [Norvasc] 5 mg PO DAILY #30 tablet 03/24/17 [Rx] Albuterol Sulfate 5 mg IH Q4H PRN 05/19/17 [History] Past Medical History HEENT History: Reports: Hard of Hearing, Impaired Vision Cardiovascular History: Reports: High Cholesterol, Hypertension, Other (See Below) Other Cardiovascular History: hypotension Respiratory History: Reports: Other (See Below) Other Respiratory History: emphysema Gastrointestinal History: Reports: None Genitourinary History: Reports: BPH Musculoskeletal History: Reports: Other (See Below) (Hx of cervical fracture, C2 ) Other Musculoskeletal History: cervical fracture Neurological History: Reports: Head Trauma Endocrine/Metabolic History: Reports: Diabetes, Type II, Hypothyroidism - Past Surgical History GI Surgical History: Reports: Other (See Below) Social & Family History - Family History Family Medical History: Unobtainable - Tobacco Use Smoking Status *Q: Never Smoker Second Hand Smoke Exposure: No - Caffeine Use Caffeine Use: Reports: Coffee - Alcohol Use Days Per Week of Alcohol Use: 0 - Recreational Drug Use Recreational Drug Use: No - Living Situation & Occupation Living situation: Reports: with Family Occupation: Retired ED ROS GENERAL - Review of Systems Review Of Systems: ROS reveals no pertinent complaints other than HPI. ED EXAM, NEURO - Physical Exam Exam: See Below (See dictation) Course - Vital Signs Last Recorded V/S: Last Vital Signs Temp 98.6 F 05/20/17 16:00 Pulse 70 05/20/17 16:00 Resp 20 05/20/17 16:00 BP 147/69 H 05/20/17 16:00 Pulse Ox 95 05/20/17 16:00 - Orders/Labs/Meds Orders: Medication Orders Aspirin (Aspirin) 81 mg PO DAILY [facility] Last Admin: 05/20/17 09:55 Dose: 81 mg Atorvastatin Calcium (Lipitor) 40 mg PO Q24H [facility] Last Admin: 05/20/17 16:57 Dose: 40 mg Admin: 05/19/17 17:48 Dose: 40 mg Heparin Sodium (Porcine) (Heparin Sodium) 5,000 units SUBCUT BID [facility] Last Admin: 05/20/17 08:47 Dose: 5,000 units Admin: 05/19/17 22:26 Dose: Admin: 05/19/17 17:51 Dose: 5,000 units Sodium Chloride (Normal Saline) 1,000 mls @ 100 mls/hr IV ASDIRECTED [facility] Last Admin: 05/20/17 17:02 Dose: 100 mls/hr Infusion: 05/20/17 16:32 Dose: 100 mls/hr Admin: 05/20/17 06:32 Dose: 100 mls/hr Infusion: 05/20/17 03:50 Dose: 100 mls/hr Admin: 05/19/17 17:50 Dose: 100 mls/hr Insulin Aspart (Novolog) 0 unit SUBCUT TIDAC [facility] PRN Reason: Protocol Last Admin: 05/20/17 16:58 Dose: Not Given Admin: 05/20/17 12:18 Dose: 1 units Admin: 05/20/17 07:28 Dose: Not Given Lorazepam (Ativan) 0.5 mg IVPUSH ONETIME PRN PRN Reason: give prior to MRI Last Admin: 05/20/17 17:03 Dose: 0.5 mg Ondansetron HCl (Zofran) 4 mg IVPUSH Q4H PRN PRN Reason: Nausea Labs: Laboratory Tests 05/19/17 05/19/17 05/19/17 Range/Units 14:36 14:36 14:36 WBC 6.79 (4.0-11.0) K/uL RBC 4.02 L (4.50-5.90) M/uL Hgb 12.7 L (13.0-17.0) g/dL Hct 37.2 L (38.0-50.0) % MCV 92.5 (80.0-98.0) fL MCH 31.6 (27.0-32.0) pg MCHC 34.1 (31.0-37.0) g/dL RDW Std Deviation 48.8 (28.0-62.0) fl RDW Coeff of Pura 15 (11.0-15.0) % Plt Count 150 (150-400) K/uL MPV 9.50 (7.40-12.00) fL Neut % (Auto) 76.5 (48.0-80.0) % Lymph % (Auto) 15.2 L (16.0-40.0) % Parker % (Auto) 7.5 (0.0-15.0) % Eos % (Auto) 0.7 (0.0-7.0) % Baso % (Auto) 0.1 (0.0-1.5) % Neut # (Auto) 5.2 (1.4-5.7) K/uL Lymph # (Auto) 1.0 (0.6-2.4) K/uL Parker # (Auto) 0.5 (0.0-0.8) K/uL Eos # (Auto) 0.1 (0.0-0.7) K/uL Baso # (Auto) 0.0 (0.0-0.1) K/uL Nucleated RBC % 0.0 /100WBC Nucleated RBCs # 0 K/uL INR 1.10 (0.86-1.11) APTT 24.9 (18.6-31.3) SEC Sodium 133 L (136-146) mmol/L Potassium 4.5 (3.5-5.1) mmol/L Chloride 101 (98-110) mmol/L Carbon Dioxide 23 (21-31) mmol/L BUN 59 H (6.0-23.0) mg/dL Creatinine 2.1 H (0.6-1.5) mg/dL Est Cr Clr Drug Dosing 22.30 mL/min Estimated GFR (MDRD) 29.9 ml/min Glucose 164 H (60-110) mg/dL Calcium 8.9 (8.8-10.8) mg/dL Total Bilirubin 0.4 (0.1-1.5) mg/dL AST 22 (5-40) IU/L ALT 14 (8-54) IU/L Alkaline Phosphatase 100 (40-150) Troponin I < 0.10 (0.0-0.29) NG/ML Total Protein 6.5 (6.0-8.0) g/dL Albumin 3.2 L (3.4-4.8) g/dL Globulin 3.3 (2.0-3.5) g/dL Albumin/Globulin Ratio 1.0 L (1.3-2.8) TSH 3rd Generation 3.07 (0.47-5.0) uIU/mL Meds: Medications Generic Name Dose Route Start Last Admin Trade Name Freq PRN Reason Stop Dose Admin Aspirin 81 mg 05/20/17 09:00 05/20/17 09:55 Aspirin PO 81 mg DAILY TED Administration Atorvastatin Calcium 40 mg 05/19/17 17:34 05/20/17 16:57 Lipitor PO 40 mg Q24H TED Administration Heparin Sodium (Porcine) 5,000 units 05/19/17 17:00 05/20/17 08:47 Heparin Sodium SUBCUT 5,000 units BID TED Administration Sodium Chloride 1,000 mls @ 100 mls/hr 05/19/17 17:15 05/20/17 17:02 Normal Saline IV 100 mls/hr ASDIRECTED TED Administration Insulin Aspart 0 unit 05/20/17 07:30 05/20/17 16:58 Novolog SUBCUT Not Given TIDAC [facility] Protocol Lorazepam 0.5 mg 05/20/17 10:25 05/20/17 17:03 Ativan IVPUSH 0.5 mg ONETIME PRN Administration give prior to MRI Ondansetron HCl 4 mg 05/19/17 16:52 Zofran IVPUSH Q4H PRN Nausea Discontinued Medications Generic Name Dose Route Start Last Admin Trade Name Freq PRN Reason Stop Dose Admin Aspirin 325 mg 05/19/17 17:05 05/19/17 17:48 Aspirin PO 05/19/17 17:06 325 mg ONETIME STA Administration Sodium Chloride 1,000 mls @ 999 mls/hr 05/19/17 15:31 05/19/17 16:17 Normal Saline IV 05/19/17 16:31 150 mls/hr STAT ONE Infusion Lorazepam 0.5 mg 05/20/17 09:00 05/20/17 10:27 Ativan IVPUSH 05/20/17 09:01 Not Given ONETIME ONE Departure - Departure Time of Disposition: 15:00 Disposition: Refer to Observation Clinical Impression: TIA (transient ischemic attack) Qualifiers: Transient cerebral ischemia type: unspecified Qualified Code(s): G45.9 - Transient cerebral ischemic attack, unspecified - Discharge Information
--- NOTE | 2017-05-19 14:39 | CT ---
EXAMINATION: Non contrast CT head. Coronal and sagittal reformats. HISTORY: Stroke code FINDINGS: No evidence of intra or extra axial hemorrhage, mass, midline shift, hydrocephalus or edema. Mild to moderate generalized atrophy. No hypoattenuation changes in the major vascular territories to suggest acute infarct. No abnormal intracranial calcifications are detected. No evidence of substantial vascular calcificat ions. Paranasal sinuses and mastoid air cells are well aerated without substantial findings. Orbits and gl obes are symmetric. Pituitary fossa appears unremarkable. Calvarium is intact. No evidence of skull fracture. IMPRESSION: 1. No acute intracranial findings. 2. Mild to moderate generalized atrophy. The above findings were called to the ER at 2:35 PM.
[2017-05-19 15:05] LABS: CHLORIDE,CL 101 mmol/L (98-110); SODIUM,NA 133 mmol/L (136-146)
--- NOTE | 2017-05-19 15:06 | CR ---
EXAMINATION: Portable chest radiograph. HISTORY: Stroke code. FINDINGS: The trachea is midline. The cardiomediastinal silhouette is within normal limits. No pulmonary infilt rates, effusions or pneumothorax. Aortic calcifications noted. Osseous structures appear mildly osteopenic. Degenerative changes noted within the shoulders bilatera lly. IMPRESSION: No acute cardiopulmonary process.
[2017-05-19] MEDS ORDERED: Sodium Chloride 0.9% 1,000 ML IV ONE (15:31)
[2017-05-19] MEDS ORDERED: Ondansetron 4 MG/2 ML SDV IVPUSH PRN (16:52)
[2017-05-19] MEDS ORDERED: Aspirin 325 MG Tab PO STA (17:05)
--- NOTE | 2017-05-19 17:21 | PCM.HP ---
H&P History of Present Illness - General Date of Service: 05/19/17 Admit Problem/Dx: Admission Diagnosis/Problem Admission Diagnosis/Problem TIA, Transient ischemic attack Source of Information: Family - History of Present Illness Initial Comments - Free Text/Narative: 89 yo Male with a past medical history of HTN, hypothyroidism, diabetes, recent syncopal episode presents today with his and daughter with a chief complaint of weakness. As per the daughter, she tells me that this past March , the patient had an episode of syncope which was worked up here at our facility and the patient was ultimately discharged home without significant findings. She goes on to tell me that the patient had been sent home with PT/OT to see him at home who have been helping him with things like ambulating, daily activities, taking his medications. She tells me that since 05/18/17 morning, he has been showing signs of confusion and weakness. Particularly, he was having trouble understanding questions asked by her and also was asking questions about things that he usually knows. For example, the patient was asking if he is , although hes been for the past 60 years. Furthermore, the patient began to show significant weakness on the right side of his body which she thinks has now gotten better since yesterday. She was mainly concerned when the patient earlier today began to drool on the side of his mouth and was complaining of feeling weak. The patient denies any headache, blurry vision, numbness or tingling, chest pain, shortness of breath, difficulty with thought process now when evaluated in the ER. ER Course: CBC CMP - elevated BUN/Cr, sodium 133 CT Head w/o contrast - no hemorrhage EKG unremarkable 1L IVNS bolus - Related Data Allergies/Adverse Reactions: Allergies Allergy/AdvReac Type Severity Reaction Status Date / Time No Known Allergies Allergy Verified 05/19/17 14:31 Home Medications: Home Meds Allopurinol [Zyloprim] 100 mg PO DAILY 03/22/17 [History] Levothyroxine Sodium [Levo-T] 50 mcg PO DAILY 03/22/17 [History] Sertraline HCl 25 mg PO DAILY 03/22/17 [History] amLODIPine [Norvasc] 5 mg PO DAILY #30 tablet 03/24/17 [Rx] Albuterol Sulfate 5 mg IH Q4H PRN 05/19/17 [History] Past Medical History HEENT History: Reports: Hard of Hearing, Impaired Vision Cardiovascular History: Reports: High Cholesterol, Hypertension, Other (See Below) Other Cardiovascular History: hypotension Respiratory History: Reports: Other (See Below) Other Respiratory History: emphysema Gastrointestinal History: Reports: None Genitourinary History: Reports: BPH Musculoskeletal History: Reports: Other (See Below) (Hx of cervical fracture, C2 ) Other Musculoskeletal History: cervical fracture Neurological History: Reports: Head Trauma Endocrine/Metabolic History: Reports: Diabetes, Type II, Hypothyroidism Hematologic History: Reports: None Immunologic History: Reports: None Oncologic (Cancer) History: Reports: None - Past Surgical History GI Surgical History: Reports: Other (See Below) Social & Family History - Family History Family Medical History: Unobtainable - Tobacco Use Smoking Status *Q: Never Smoker Used Tobacco, but Quit: No Second Hand Smoke Exposure: No - Caffeine Use Caffeine Use: Reports: Coffee - Alcohol Use Days Per Week of Alcohol Use: 0 - Recreational Drug Use Recreational Drug Use: No - Living Situation & Occupation Living situation: Reports: with Family Occupation: Retired H&P Review of Systems - Review of Systems: Review Of Systems: See Below General: Reports: Weakness, Fatigue HEENT: Reports: No Symptoms Pulmonary: Reports: No Symptoms Cardiovascular: Reports: No Symptoms Gastrointestinal: Reports: No Symptoms Genitourinary: Reports: Incontinence (chronic history of incontinence) Musculoskeletal: Reports: No Symptoms Psychiatric: Reports: Confusion Neurological: Reports: Confusion, Weakness, Change in Speech (as reported by daughter) Exam - Exam Exam: See Below - Vital Signs Vital Signs: Last Vital Signs Temp 36.4 C 05/19/17 14:32 Pulse 61 05/19/17 14:32 Resp 16 05/19/17 14:32 BP 150/66 H 05/19/17 14:32 Pulse Ox 96 05/19/17 14:32 Weight: 72.575 kg - Exam General: Alert, Oriented, Cooperative HEENT: Conjunctiva Clear, EACs Clear, EOMI, Hearing Intact, Mucosa Moist & [place] Neck: Supple, Trachea Midline, +2 Carotid Pulse wo Bruit. No: JVD Lungs: Clear to Auscultation, Normal Respiratory Effort Cardiovascular: Regular Rate, Regular Rhythm, Normal S1, Normal S2 GI/Abdominal Exam: Soft, Non-Tender Back Exam: Normal Inspection, Full Range of Motion Extremities: Normal Inspection, Normal Range of Motion, No Pedal Edema, Normal Capillary Refill Peripheral Pulses: 3+: Posterior Tibial (L), Posterior Tibial (R), Dorsalis Pedis (L), Dorsalis Pedis (R) Skin: Warm, Ecchymosis Neurological: Cranial Nerves Intact, Reflexes Equal Bilateral, Strength Equal Bilateral, Normal Speech, Normal Tone, Sensation Intact. No: Focal Deficit Neuro Extensive - Mental Status: Alert, Oriented x3, Normal Mood/Affect, Other ( oriented to person, place, time (month, but not year)) Neuro Extensive - Motor, Sensory, Reflexes: CN II-XII Intact, Normal Reflexes. No: Tongue Deviation (L), Receptive Aphasia, Expressive Aphasia, Facial Palsy (R ), Pronator Drift (L), Abnormal Finger to Nose, Abnormal Motor, Tremor Psychiatric: Alert, Normal Affect, Normal Mood - Patient Data Result Diagrams: 05/19/17 14:36 05/19/17 14:36 *Q Meaningful Use (ADM) - VTE *Q VTE Criteria *Q: - Stroke *Q Stroke Criteria *Q: - AMI *Q AMI Criteria *Q: Problem List Initiated/Reviewed/Updated: Yes Orders Last 24hrs: Active Orders 24 hr Category Date Time Status Antiembolic Devices [RC] PER UNIT ROUTINE Care 05/19/17 16:54 Active Oxygen Therapy [RC] PRN Care 05/19/17 16:52 Active Up With Assistance [RC] ASDIRECTED Care 05/19/17 16:52 Active VTE/DVT Education [RC] PER UNIT ROUTINE Care 05/19/17 16:52 Active Vital Signs [RC] Q4H Care 05/19/17 16:52 Active Nothing per Oral Now Diet [DIET] Diet 05/19/17 Breakfast Active Ang Head wo Cont [MR] Urgent Exams 05/19/17 17:01 Ordered Ang Neck wo Cont [MR] Urgent Exams 05/19/17 17:01 Ordered Brain wo Cont [MR] Urgent Exams 05/19/17 17:01 Ordered Echo Comp wo Cont [US] Routine Exams 05/19/17 17:06 Ordered CBC WITH AUTO DIFF [HEME] AM Lab 05/20/17 05:11 Ordered COMPREHENSIVE METABOLIC PN,CMP [CHEM] AM Lab 05/20/17 05:11 Ordered LIPID PANEL [CHEM] AM Lab 05/20/17 05:11 Ordered Heparin Sodium Med 05/19/17 17:00 Active 5,000 units SUBCUT BID Ondansetron [Zofran] Med 05/19/17 16:52 Active 4 mg IVPUSH Q4H PRN Sodium Chloride 0.9% @ 100 MLS/HR(1,000ml) Med 05/19/17 17:15 Ordered Sodium Chloride 0.9% [Normal Saline] 1,000 ml IV ASDIRECTED Sequential Compression Device [OM.PC] Per Unit Routine Oth 05/19/17 16:53 Ordered Resuscitation Status Routine Resus Stat 05/19/17 16:52 Ordered Medication Orders Heparin Sodium (Porcine) (Heparin Sodium) 5,000 units SUBCUT BID TED Sodium Chloride (Normal Saline) 1,000 mls @ 100 mls/hr IV ASDIRECTED TED Ondansetron HCl (Zofran) 4 mg IVPUSH Q4H PRN PRN Reason: Nausea Assessment/Plan Comment:: Assessment: #1. TIA #2. Confusion secondary to #1 #3. Intermittent Right sided weakness #4. hyponatremia #5. chronic kidney disease #6. History hypertension, diabetes, hypothyroidism Plan: #1. Admit to floor for observation with stroke protocol. #2. Vital signs q15min #3. DNR/DNI #4. Bedside swallow study, regular diet if passes #5. MRI brain w/o contrast #6. MRA head/neck w/o contrast #7. Echocardiogram #8. CBC,CMP, Lipid panel for tomorrow AM #9. Neurology consult #10. hold off on resuming patients htn medications #11. Heparin 5,000 units BID for DVT Prophylaxis #12. 325mg PO Aspirin NOW The patients reported right side weakness appears to have subsided based on what the daughter is reporting and the physical exam. He is not showing any acute signs of confusion aside from not knowing what the year is, which may be a chronic dementia finding. Will follow up on what was ordered as listed above.
[2017-05-19] MEDS: atorvaSTATin 40 MG Tab PO SCH (17:48)
[2017-05-19] MEDS: Sodium Chloride 0.9% 1,000 ML IV SCH (17:50)
[2017-05-19] MEDS: Heparin Sodium 5,000 Units/ML Vial SUBCUT SCH ×2 (17:51→22:26)
[2017-05-20] MEDS: Sodium Chloride 0.9% 1,000 ML IV SCH ×2 (06:32→17:02)
[2017-05-20] MEDS: Insulin Aspart 100 Units/ML 3 ML Pen SUBCUT SCH ×3 (07:28→16:58)
[2017-05-20] MEDS: Heparin Sodium 5,000 Units/ML Vial SUBCUT SCH ×2 (08:47→21:18)
[2017-05-20] MEDS ORDERED: LORazepam 2 MG/ML MDV IVPUSH ONE (09:00)
[2017-05-20] MEDS: Aspirin 81 MG Tab.Chew PO SCH (09:55)
[2017-05-20] MEDS ORDERED: LORazepam 2 MG/ML MDV IVPUSH PRN (10:25)
--- NOTE | 2017-05-20 13:10 | PCM.CONS ---
H&P History of Present Illness - General Date of Service: 05/20/17 Admit Problem/Dx: Admission Diagnosis/Problem Admission Diagnosis/Problem altered mental status, slurred speech, right sided weakness Source of Information: Patient, Family History Limitations: Reports: Altered Mental Status - History of Present Illness Initial Comments - Free Text/Narative: 89 year old man with a history of CKD, HTN, depression and anxiety, admitted for mental status changes, weakness. I called his daughter who reported that he had himself for 2 days prior to presentation yesterday. Yesterday, she noted that his right side was weak. He could not move his right leg, and was unable to stand. She endorses that his right arm was weak as well. There was an episode when both hands were shaking like he was cold. He was able to talk during this period. He then developed slurred speech and drooling, so she called the ambulance. Per ED provider Alexis Perla note 05/19/2016. Per ED note, EMS had also noted right sided weakness, upon arrival in ED, he was noted to have left facial droop and left upper limb weakness. Winsome also noted that he has had short memory issues for 5 years. He needs helps with wiping after BM, otherwise he is independent. He sponge bathes himself. He has had issues with falls. He has used four point walker mostly, but they have had a wheelchair since fall in March. He had passed out at that time. The fingers of his right hand have been curled since a fall 2 years ago when he had neck fracture. - Related Data Allergies/Adverse Reactions: Allergies Allergy/AdvReac Type Severity Reaction Status Date / Time No Known Allergies Allergy Verified 05/19/17 14:31 Home Medications: Home Meds Allopurinol [Zyloprim] 100 mg PO DAILY 03/22/17 [History] Levothyroxine Sodium [Levo-T] 50 mcg PO DAILY 03/22/17 [History] Sertraline HCl 25 mg PO DAILY 03/22/17 [History] amLODIPine [Norvasc] 5 mg PO DAILY #30 tablet 03/24/17 [Rx] Albuterol Sulfate 5 mg IH Q4H PRN 05/19/17 [History] Past Medical History HEENT History: Reports: Hard of Hearing, Impaired Vision Cardiovascular History: Reports: High Cholesterol, Hypertension, Other (See Below) Other Cardiovascular History: hypotension Respiratory History: Reports: Other (See Below) Other Respiratory History: emphysema Gastrointestinal History: Reports: None Genitourinary History: Reports: BPH Musculoskeletal History: Reports: Other (See Below) (Hx of cervical fracture, C2 ) Other Musculoskeletal History: cervical fracture Neurological History: Reports: Head Trauma Endocrine/Metabolic History: Reports: Diabetes, Type II, Hypothyroidism Hematologic History: Reports: None Immunologic History: Reports: None Oncologic (Cancer) History: Reports: None - Past Surgical History GI Surgical History: Reports: Other (See Below) Social & Family History - Family History Family Medical History: Unobtainable - Tobacco Use Smoking Status *Q: Never Smoker Used Tobacco, but Quit: No Month Tobacco Last Used: years ago Second Hand Smoke Exposure: No - Caffeine Use Caffeine Use: Reports: Coffee - Alcohol Use Days Per Week of Alcohol Use: 0 - Recreational Drug Use Recreational Drug Use: No - Living Situation & Occupation Living situation: Reports: with Family Occupation: Retired H&P Review of Systems - Review of Systems: Review Of Systems: Unable To Obtain (mental status, he denies any pain) Exam - Exam Exam: See Below - Vital Signs Vital Signs: Last Vital Signs Temp 36.7 C 05/20/17 12:00 Pulse 70 05/20/17 12:00 Resp 18 05/20/17 12:00 BP 106/51 L 05/20/17 12:00 Pulse Ox 94 L 05/20/17 12:00 Weight: 72.575 kg - Exam Physical Exam Comments:: Constitutional: No acute distress Neurological: Mental Status: Level of consciousness: Awake, alert. Orientation: Oriented to person, place, not year, president, month or situation. Concentration/Attention Span: He is not able to spell world Comprehension/Praxis: Able to perform one step command Fund of Knowledge/memory: Impaired short term recall Language: Naming and repetition intact Cranial Nerves: Pupils round 2 mm. . Visual luke testing unreliable. Gaze conjugate, EOMI. Sensation intact and symmetric to light touch. Facial strength is full and symmetric. Severely impaired hearing. Palate elevates symmetrically. Normal shrug bilaterally. Tongue protrudes midline Motor: Right finger in flexed, pain with passive extension . No drift. Power is 5/5 bilateral biceps, triceps, wrist extension, knee flexion/extension, ankle dorsiflexion. Hip flexion limited. Sensation: Sensation is intact to pinprick Deep tendon reflexes: 2+ in upper limbs, absent in lower limbs. Plantar responses are flexor bilaterally. Coordination: Finger to nose intact. Heel to zapata not completed. He did not seem to understand task. Gait: Not assessed HEENT: Eyes: non icteric, Mouth: moist mucus membranes Cardiovascular: RRR, no obvious murmur Respiratory: clear lungs GI: non tender Musculoskeletal: non tender Skin: violaceous discoloring both hand, multiple bruises observed. Results: Upon arrival, NA was 133, now 139. Creatinine 2.1 yesterday, 1.8 today. Last was 1.9 Labs 05/20 18 LDL 67 Labs 05/19/[address] head 05/19/2017 no acute process - Patient Data Lab Results Last 24 hrs: Laboratory Results - last 24 hr 05/20/17 05/20/17 05/20/17 Range/Units 04:52 04:52 06:36 WBC 4.38 (4.0-11.0) K/uL RBC 3.68 L (4.50-5.90) M/uL Hgb 11.3 L (13.0-17.0) g/dL Hct 34.2 L (38.0-50.0) % MCV 92.9 (80.0-98.0) fL MCH 30.7 (27.0-32.0) pg MCHC 33.0 (31.0-37.0) g/dL RDW Std Deviation 49.6 (28.0-62.0) fl RDW Coeff of Pura 15 (11.0-15.0) % Plt Count 130 L (150-400) K/uL MPV 9.50 (7.40-12.00) fL Neut % (Auto) 62.8 (48.0-80.0) % Lymph % (Auto) 21.0 (16.0-40.0) % [place] % (Auto) 12.1 (0.0-15.0) % Eos % (Auto) 3.9 (0.0-7.0) % Baso % (Auto) 0.2 (0.0-1.5) % Neut # (Auto) 2.8 (1.4-5.7) K/uL Lymph # (Auto) 0.9 (0.6-2.4) K/uL [place] # (Auto) 0.5 (0.0-0.8) K/uL Eos # (Auto) 0.2 (0.0-0.7) K/uL Baso # (Auto) 0.0 (0.0-0.1) K/uL Nucleated RBC % 0.0 /100WBC Nucleated RBCs # 0 K/uL Sodium 139 (136-146) mmol/L Potassium 4.5 (3.5-5.1) mmol/L Chloride 111 H (98-110) mmol/L Carbon Dioxide 22 (21-31) mmol/L BUN 55 H (6.0-23.0) mg/dL Creatinine 1.8 H (0.6-1.5) mg/dL Est Cr Clr Drug Dosing 26.01 mL/min Estimated GFR (MDRD) 35.7 ml/min Glucose 86 (60-110) mg/dL POC Glucose 76 (60-110) mg/dL Calcium 8.6 L (8.8-10.8) mg/dL Total Bilirubin 0.4 (0.1-1.5) mg/dL AST 17 (5-40) IU/L ALT 13 (8-54) IU/L Alkaline Phosphatase 81 (40-150) Total Protein 5.4 L (6.0-8.0) g/dL Albumin 2.8 L (3.4-4.8) g/dL Globulin 2.6 (2.0-3.5) g/dL Albumin/Globulin Ratio 1.1 L (1.3-2.8) Triglycerides 24 (10-190) mg/dL Cholesterol 102 L (131-240) mg/dL LDL Cholesterol, Calc 67 (60-180) mg/dL VLDL Cholesterol 5 (5-55) mg/dL HDL Cholesterol 30 L (40-80) mg/dL Cholesterol/HDL Ratio 3.4 (3.3-6.0) 05/20/17 Range/Units 12:06 WBC (4.0-11.0) K/uL RBC (4.50-5.90) M/uL Hgb (13.0-17.0) g/dL Hct (38.0-50.0) % MCV (80.0-98.0) fL MCH (27.0-32.0) pg MCHC (31.0-37.0) g/dL RDW Std Deviation (28.0-62.0) fl RDW Coeff of Pura (11.0-15.0) % Plt Count (150-400) K/uL MPV (7.40-12.00) fL Neut % (Auto) (48.0-80.0) % Lymph % (Auto) (16.0-40.0) % [place] % (Auto) (0.0-15.0) % Eos % (Auto) (0.0-7.0) % Baso % (Auto) (0.0-1.5) % Neut # (Auto) (1.4-5.7) K/uL Lymph # (Auto) (0.6-2.4) K/uL [place] # (Auto) (0.0-0.8) K/uL Eos # (Auto) (0.0-0.7) K/uL Baso # (Auto) (0.0-0.1) K/uL Nucleated RBC % /100WBC Nucleated RBCs # K/uL Sodium (136-146) mmol/L Potassium (3.5-5.1) mmol/L Chloride (98-110) mmol/L Carbon Dioxide (21-31) mmol/L BUN (6.0-23.0) mg/dL Creatinine (0.6-1.5) mg/dL Est Cr Clr Drug Dosing mL/min Estimated GFR (MDRD) ml/min Glucose (60-110) mg/dL POC Glucose 196 H (60-110) mg/dL Calcium (8.8-10.8) mg/dL Total Bilirubin (0.1-1.5) mg/dL AST (5-40) IU/L ALT (8-54) IU/L Alkaline Phosphatase (40-150) Total Protein (6.0-8.0) g/dL Albumin (3.4-4.8) g/dL Globulin (2.0-3.5) g/dL Albumin/Globulin Ratio (1.3-2.8) Triglycerides (10-190) mg/dL Cholesterol (131-240) mg/dL LDL Cholesterol, Calc (60-180) mg/dL VLDL Cholesterol (5-55) mg/dL HDL Cholesterol (40-80) mg/dL Cholesterol/HDL Ratio (3.3-6.0) Result Diagrams: 05/20/17 04:52 05/20/17 04:52 Consult PN Assessment/Plan Procedures: Procedures ASSAY OF BLOOD/URIC ACID (10/23/15) ASSAY OF CK (CPK) (03/22/17) ASSAY OF FREE THYROXINE (03/17/17) ASSAY OF IRON (10/23/15) ASSAY OF LIPASE (02/02/14) ASSAY OF NATRIURETIC PEPTIDE (03/22/17) ASSAY OF PHOSPHORUS (03/04/15) ASSAY OF TROPONIN QUANT (03/22/17) ASSAY THYROID STIM HORMONE (03/17/17) BLOOD TYPING SEROLOGIC ABO (02/02/14) BLOOD TYPING SEROLOGIC RH(D) (02/02/14) CHEST X-RAY 1 VIEW FRONTAL (03/22/17) CHEST X-RAY 2VW FRONTAL&LATL (01/24/15) COMPLETE CBC AUTOMATED (04/30/16) COMPLETE CBC W/AUTO DIFF WBC (03/22/17) COMPREHEN METABOLIC PANEL (03/22/17) CREATINE MB FRACTION (03/22/17) CT ABD & PELVIS W/O CONTRAST (01/23/16) CT HEAD/BRAIN W/O DYE (03/22/17) CT NECK SPINE W/O DYE (03/22/17) ELECTROCARDIOGRAM TRACING (03/22/17) EMERGENCY DEPT VISIT (03/22/17) EMERGENCY DEPT VISIT (04/30/16) EMERGENCY DEPT VISIT (02/02/14) GLYCOSYLATED HEMOGLOBIN TEST (07/02/16) HYDRATE IV INFUSION ADD-ON (02/02/14) HYDRATION IV INFUSION INIT (02/02/14) IIV4 VACC NO PRSV 0.5 ML IM (02/24/16) LIPID PANEL (07/02/16) METABOLIC PANEL TOTAL CA (04/30/16) OFFICE/OUTPATIENT VISIT EST (07/02/16) OFFICE/OUTPATIENT VISIT EST (06/14/15) OFFICE/OUTPATIENT VISIT EST (02/28/15) OFFICE/OUTPATIENT VISIT EST (09/25/14) OFFICE/OUTPATIENT VISIT EST (08/10/13) PROTHROMBIN TIME (03/22/17) PT EVAL LOW COMPLEX 20 MIN (03/22/17) RBC ANTIBODY SCREEN (02/02/14) ROUTINE VENIPUNCTURE (03/22/17) RPR S/N/AX/GEN/TRNK2.6-7.5CM (04/30/16) THERAPEUTIC ACTIVITIES (03/22/17) TTE W/DOPPLER COMPLETE (09/07/14) UR ALBUMIN SEMIQUANTITATIVE (06/18/14) URINALYSIS AUTO W/SCOPE (04/30/16) URINE CULTURE/COLONY COUNT (01/22/16) X-RAY EXAM L-S SPINE 2/3 VWS (04/30/16) X-RAY EXAM OF ELBOW (04/30/16) X-RAY EXAM OF HUMERUS (02/02/14) X-RAY EXAM OF KNEE 3 (03/22/17) X-RAY EXAM OF PELVIS (03/22/17) Problem List Initiated/Reviewed/Updated: Yes My Orders Last 24 Hours: 89 year old chronically ill man with multiple comorbidities admitted with altered mental status X 2 days. There has observed right sided and left sided weakness. Currently, he is encephalopathic, but it sounds like he has chronic cognitive impairment, so this may be baseline. Labs upon arrival suggest dehydration. I dont see evidence of focal deficits on examination currently except for right hand, which is chronic based on history. TIA seems likely based on documentation of transient unilateral weakness, slurred speech. It sounds like he had altered mental status for 2 days prior to focal deficits, so toxic metabolic / infectious encephalopathy is also a consideration. Recommendations: Check B12, UA MRI brain w/o contrast (GFR<30), MRA w/o contrast carotid US TTE is pending Agree with ASA and statin Telemetry PT / OT consultation Swallow eval
--- NOTE | 2017-05-20 13:11 | PCM.PN ---
- General Info Date of Service: 05/20/17 Admission Dx/Problem (Free Text): Admission Diagnosis/Problem Admission Diagnosis/Problem TIA, Transient ischemic attack no interval changes since last assessed yesterday on admission. Lipid panel unremarkable. Echocardiogram is pending. Neurology has been consulted for evaluation. they will come by and see the patient today after MRI/MRA of the head along with a carotid ultrasound are available. The patient appears to be quite consistent with how he has been doing since yesterday. He has no complaints today. He was evaluated with his daughter at the bedside as well. She is concerned about right-sided weakness that may be present beyond his baseline. imaging was supposed to be done last night, however the patient was anxious and the radiology staff was unable to do the imaging. He is to have this done this morning. - Review of Systems General: Reports: Other (see history of present illness) - Patient Data Vitals - Most Recent: Last Vital Signs Temp 36.7 C 05/20/17 12:00 Pulse 70 05/20/17 12:00 Resp 18 05/20/17 12:00 BP 106/51 L 05/20/17 12:00 Pulse Ox 94 L 05/20/17 12:00 Weight - Most Recent: 72.575 kg I&O - Last 24 Hours: Intake & Output 05/19/17 05/20/17 05/20/17 22:59 06:59 14:59 Intake Total 1100 Output Total 0 Balance 1100 Lab Results Last 24 Hours: Laboratory Results - last 24 hr 05/20/17 05/20/17 05/20/17 Range/Units 04:52 04:52 06:36 WBC 4.38 (4.0-11.0) K/uL RBC 3.68 L (4.50-5.90) M/uL Hgb 11.3 L (13.0-17.0) g/dL Hct 34.2 L (38.0-50.0) % MCV 92.9 (80.0-98.0) fL MCH 30.7 (27.0-32.0) pg MCHC 33.0 (31.0-37.0) g/dL RDW Std Deviation 49.6 (28.0-62.0) fl RDW Coeff of Pura 15 (11.0-15.0) % Plt Count 130 L (150-400) K/uL MPV 9.50 (7.40-12.00) fL Neut % (Auto) 62.8 (48.0-80.0) % Lymph % (Auto) 21.0 (16.0-40.0) % Gray % (Auto) 12.1 (0.0-15.0) % Eos % (Auto) 3.9 (0.0-7.0) % Baso % (Auto) 0.2 (0.0-1.5) % Neut # (Auto) 2.8 (1.4-5.7) K/uL Lymph # (Auto) 0.9 (0.6-2.4) K/uL Gray # (Auto) 0.5 (0.0-0.8) K/uL Eos # (Auto) 0.2 (0.0-0.7) K/uL Baso # (Auto) 0.0 (0.0-0.1) K/uL Nucleated RBC % 0.0 /100WBC Nucleated RBCs # 0 K/uL Sodium 139 (136-146) mmol/L Potassium 4.5 (3.5-5.1) mmol/L Chloride 111 H (98-110) mmol/L Carbon Dioxide 22 (21-31) mmol/L BUN 55 H (6.0-23.0) mg/dL Creatinine 1.8 H (0.6-1.5) mg/dL Est Cr Clr Drug Dosing 26.01 mL/min Estimated GFR (MDRD) 35.7 ml/min Glucose 86 (60-110) mg/dL POC Glucose 76 (60-110) mg/dL Calcium 8.6 L (8.8-10.8) mg/dL Total Bilirubin 0.4 (0.1-1.5) mg/dL AST 17 (5-40) IU/L ALT 13 (8-54) IU/L Alkaline Phosphatase 81 (40-150) Total Protein 5.4 L (6.0-8.0) g/dL Albumin 2.8 L (3.4-4.8) g/dL Globulin 2.6 (2.0-3.5) g/dL Albumin/Globulin Ratio 1.1 L (1.3-2.8) Triglycerides 24 (10-190) mg/dL Cholesterol 102 L (131-240) mg/dL LDL Cholesterol, Calc 67 (60-180) mg/dL VLDL Cholesterol 5 (5-55) mg/dL HDL Cholesterol 30 L (40-80) mg/dL Cholesterol/HDL Ratio 3.4 (3.3-6.0) 05/20/17 Range/Units 12:06 WBC (4.0-11.0) K/uL RBC (4.50-5.90) M/uL Hgb (13.0-17.0) g/dL Hct (38.0-50.0) % MCV (80.0-98.0) fL MCH (27.0-32.0) pg MCHC (31.0-37.0) g/dL RDW Std Deviation (28.0-62.0) fl RDW Coeff of Pura (11.0-15.0) % Plt Count (150-400) K/uL MPV (7.40-12.00) fL Neut % (Auto) (48.0-80.0) % Lymph % (Auto) (16.0-40.0) % Gray % (Auto) (0.0-15.0) % Eos % (Auto) (0.0-7.0) % Baso % (Auto) (0.0-1.5) % Neut # (Auto) (1.4-5.7) K/uL Lymph # (Auto) (0.6-2.4) K/uL Gray # (Auto) (0.0-0.8) K/uL Eos # (Auto) (0.0-0.7) K/uL Baso # (Auto) (0.0-0.1) K/uL Nucleated RBC % /100WBC Nucleated RBCs # K/uL Sodium (136-146) mmol/L Potassium (3.5-5.1) mmol/L Chloride (98-110) mmol/L Carbon Dioxide (21-31) mmol/L BUN (6.0-23.0) mg/dL Creatinine (0.6-1.5) mg/dL Est Cr Clr Drug Dosing mL/min Estimated GFR (MDRD) ml/min Glucose (60-110) mg/dL POC Glucose 196 H (60-110) mg/dL Calcium (8.8-10.8) mg/dL Total Bilirubin (0.1-1.5) mg/dL AST (5-40) IU/L ALT (8-54) IU/L Alkaline Phosphatase (40-150) Total Protein (6.0-8.0) g/dL Albumin (3.4-4.8) g/dL Globulin (2.0-3.5) g/dL Albumin/Globulin Ratio (1.3-2.8) Triglycerides (10-190) mg/dL Cholesterol (131-240) mg/dL LDL Cholesterol, Calc (60-180) mg/dL VLDL Cholesterol (5-55) mg/dL HDL Cholesterol (40-80) mg/dL Cholesterol/HDL Ratio (3.3-6.0) Med Orders - Current: Current Medications Aspirin (Aspirin) 81 mg PO DAILY [facility] Last Admin: 05/20/17 09:55 Dose: 81 mg Atorvastatin Calcium (Lipitor) 40 mg PO Q24H [facility] Last Admin: 05/19/17 17:48 Dose: 40 mg Heparin Sodium (Porcine) (Heparin Sodium) 5,000 units SUBCUT BID [facility] Last Admin: 05/20/17 08:47 Dose: 5,000 units Sodium Chloride (Normal Saline) 1,000 mls @ 100 mls/hr IV ASDIRECTED [facility] Last Admin: 05/20/17 06:32 Dose: 100 mls/hr Insulin Aspart (Novolog) 0 unit SUBCUT TIDAC [facility] PRN Reason: Protocol Last Admin: 05/20/17 12:18 Dose: 1 units Lorazepam (Ativan) 0.5 mg IVPUSH ONETIME PRN PRN Reason: give prior to MRI Ondansetron HCl (Zofran) 4 mg IVPUSH Q4H PRN PRN Reason: Nausea Discontinued Medications Aspirin (Aspirin) 325 mg PO ONETIME STA Stop: 05/19/17 17:06 Last Admin: 05/19/17 17:48 Dose: 325 mg Sodium Chloride (Normal Saline) 1,000 mls @ 999 mls/hr IV STAT ONE Stop: 05/19/17 16:31 Last Infusion: 05/19/17 16:17 Dose: 150 mls/hr Lorazepam (Ativan) 0.5 mg IVPUSH ONETIME ONE Stop: 05/20/17 09:01 Last Admin: 05/20/17 10:27 Dose: Not Given - Exam General: Alert, Oriented, Cooperative, No Acute Distress HEENT: Pupils Equal, Pupils Reactive, EOMI, Mucous Membr. Moist/Harmony Neck: Supple Lungs: Clear to Auscultation, Normal Respiratory Effort Cardiovascular: Regular Rate, Regular Rhythm GI/Abdominal Exam: Normal Bowel Sounds, Soft Peripheral Pulses: 3+: Posterior Tibial (L), Posterior Tibial (R) Skin: Warm Neurological: No New Focal Deficit, Normal Speech, Normal Tone, Strength Equal Bilateral, Reflexes Equal Bilateral, Sensation Intact, Cranial Nerves Intact Psy/Mental Status: Alert, Normal Affect, Normal Mood - Problem List Review Problem List Initiated/Reviewed/Updated: Yes - My Orders Last 24 Hours: My Active Orders 05/19/17 16:52 Oxygen Therapy [RC] PRN Up With Assistance [RC] ASDIRECTED Vital Signs [RC] Q4H Ondansetron [Zofran] 4 mg IVPUSH Q4H PRN Resuscitation Status Routine 05/19/17 16:53 Sequential Compression Device [OM.PC] Per Unit Routine 05/19/17 17:00 Heparin Sodium 5,000 units SUBCUT BID 05/19/17 17:01 Ang Head wo Cont [MR] Urgent Ang Neck wo Cont [MR] Urgent Brain wo Cont [MR] Urgent 05/19/17 17:15 Sodium Chloride 0.9% [Normal Saline] 1,000 ml IV ASDIRECTED 05/19/17 17:34 atorvaSTATin [Lipitor] 40 mg PO Q24H 05/19/17 18:51 Accu Check [Blood Glucose Check, Bedside] [RC] TIDMEALS 05/19/17 Dinner Regular Diet [DIET] 05/20/17 Echo Comp wo Cont [US] Routine 05/20/17 07:30 Insulin Aspart [NovoLOG] See Protocol SUBCUT TIDAC 05/20/17 10:22 Ang Head wo Cont [MR] Routine Brain wo Cont [MR] Routine 05/20/17 10:23 Brain wo Cont [MR] Urgent 05/20/17 10:24 Brain wo Cont [MR] Urgent 05/20/17 10:25 Consult to Physician [CONS] Routine Carotid Comp [US] Routine 05/20/17 10:26 Notify Provider Consults [RC] ASDIRECTED - Plan Plan:: Assessment: #1. TIA #2. Confusion secondary to #1 - resolved #3. Intermittent Right sided weakness #4. hyponatremia #5. chronic kidney disease #6. History hypertension, diabetes, hypothyroidism Plan: #1. follow-up on imaging as ordered #2. Neurology to evaluate the patient this afternoon. We will follow up on recommendations. Thank you for recommendations. #3. Anticipate discharge tomorrow
--- NOTE | 2017-05-20 15:45 | PCM.SN ---
- Free Text/Narrative Note: Echocardiogram 05/20/17: 1. LVEH 35-40% 2. Global moderately decreased left ventricular systolic function. 3. Impaired relaxation (grade 1) pattern of LV diastolic filling. 4. Left ventricular internal cavity size is mildly to moderately increased. 5. Normal right ventricular systolic function 6. Moderately dilated left atrium. 7. Mildly dilated right atrium. 8. The aortic valve is not well-visualized. 9. Mild tricuspid valve regurg 10. Pulmonic valve is not well visualized. 11. Aortic valve is/are normal.
[2017-05-20] MEDS: atorvaSTATin 40 MG Tab PO SCH (16:57)
[2017-05-21] MEDS: Insulin Aspart 100 Units/ML 3 ML Pen SUBCUT SCH ×2 (06:46→12:14)
[2017-05-21 09:03] VITALS: BP 146/70
--- NOTE | 2017-05-21 09:46 | US ---
EXAMINATION: Carotid US with issa scale and duplex imaging. HISTORY: Weakness FINDINGS: Ultrasound examination of bilateral cervical carotid arteries was performed using issa scale and dupl ex imaging. Mild to moderate scattered atheromatous plaque noted within the carotid arteries bilater ally most prominent within the region of the bulbs. Antegrade flow is noted within the vertebral art eries. These are the peak velocities in cm per second (systole), right and left respectively, by a comma: CCA (common carotid artery) - 70, 92 ICA (internal carotid artery) - 187, 1:30 ECA (External carotid artery) - 110, 99 ICA/CCA systolic ratio Right - 2.3 Left - 1.2 IMPRESSION: 1. There is between 50 and 69% stenosis within both internal carotid artery secondary to elevated junaid ocities.
[2017-05-21] MEDS: Heparin Sodium 5,000 Units/ML Vial SUBCUT SCH (09:58)
[2017-05-21] MEDS: Aspirin 81 MG Tab.Chew PO SCH (09:58)
--- NOTE | 2017-05-21 12:59 | PCM.CONSN ---
- General Info Date of Service: 05/21/17 Admission Dx/Problem (Free Text): Admission Diagnosis/Problem Admission Diagnosis/Problem altered mental status, slurred speech, right sided weakness Subjective Update: His daughter reports that he close to back to baseline except more sleepy since he received pre med for MRI. He was too restless for them to complete the MRI. He is sleepy today and doesn't provide much history. - Patient Data Vitals - Most Recent: Last Vital Signs Temp 37.1 C 05/21/17 08:58 Pulse 60 05/21/17 08:58 Resp 16 05/21/17 08:58 BP 146/70 H 05/21/17 08:58 Pulse Ox 93 L 05/21/17 08:58 Weight - Most Recent: 72.575 kg I&O - Last 24 Hours: Intake & Output 05/20/17 05/21/17 05/21/17 22:59 06:59 14:59 Intake Total 1812 750 Output Total 0 525 Balance 1812 225 Lab Results Last 24 Hours: Laboratory Results - last 24 hr 05/20/17 05/20/17 05/20/17 Range/Units 04:52 16:08 16:26 WBC (4.0-11.0) K/uL RBC (4.50-5.90) M/uL Hgb (13.0-17.0) g/dL Hct (38.0-50.0) % MCV (80.0-98.0) fL MCH (27.0-32.0) pg MCHC (31.0-37.0) g/dL RDW Std Deviation (28.0-62.0) fl RDW Coeff of Pura (11.0-15.0) % Plt Count (150-400) K/uL MPV (7.40-12.00) fL Neut % (Auto) (48.0-80.0) % Lymph % (Auto) (16.0-40.0) % [place] % (Auto) (0.0-15.0) % Eos % (Auto) (0.0-7.0) % Baso % (Auto) (0.0-1.5) % Neut # (Auto) (1.4-5.7) K/uL Lymph # (Auto) (0.6-2.4) K/uL [place] # (Auto) (0.0-0.8) K/uL Eos # (Auto) (0.0-0.7) K/uL Baso # (Auto) (0.0-0.1) K/uL Nucleated RBC % /100WBC Nucleated RBCs # K/uL Sodium (136-146) mmol/L Potassium (3.5-5.1) mmol/L Chloride (98-110) mmol/L Carbon Dioxide (21-31) mmol/L BUN (6.0-23.0) mg/dL Creatinine (0.6-1.5) mg/dL Est Cr Clr Drug Dosing mL/min Estimated GFR (MDRD) ml/min Glucose (60-110) mg/dL POC Glucose 137 H (60-110) mg/dL Calcium (8.8-10.8) mg/dL Vitamin B12 435 (200-1100) PG/ML Urine Color YELLOW Urine Appearance CLEAR Urine pH 6.5 (5.0-8.0) Ur Specific [place] 1.010 (1.001-1.035) Urine Protein NEGATIVE (NEGATIVE) mg/dL Urine Glucose (UA) NEGATIVE (NEGATIVE) mg/dL Urine Ketones NEGATIVE (NEGATIVE) mg/dL Urine Occult Blood NEGATIVE (NEGATIVE) Urine Nitrite NEGATIVE (NEGATIVE) Urine Bilirubin NEGATIVE (NEGATIVE) Urine Urobilinogen 0.2 (<2.0) EU/dL Ur Leukocyte Esterase NEGATIVE (NEGATIVE) Urine RBC 0-1 (0-2/HPF) Urine WBC 0-1 (0-5/HPF) Ur Epithelial Cells RARE (NONE-FEW) Urine Bacteria RARE (NEGATIVE) 05/21/17 05/21/17 05/21/17 Range/Units 06:03 06:03 06:33 WBC 4.92 (4.0-11.0) K/uL RBC 3.86 L (4.50-5.90) M/uL Hgb 11.9 L (13.0-17.0) g/dL Hct 36.2 L (38.0-50.0) % MCV 93.8 (80.0-98.0) fL MCH 30.8 (27.0-32.0) pg MCHC 32.9 (31.0-37.0) g/dL RDW Std Deviation 50.6 (28.0-62.0) fl RDW Coeff of Pura 15 (11.0-15.0) % Plt Count 133 L (150-400) K/uL MPV 9.40 (7.40-12.00) fL Neut % (Auto) 53.3 (48.0-80.0) % Lymph % (Auto) 29.7 (16.0-40.0) % [place] % (Auto) 14.0 (0.0-15.0) % Eos % (Auto) 2.8 (0.0-7.0) % Baso % (Auto) 0.2 (0.0-1.5) % Neut # (Auto) 2.6 (1.4-5.7) K/uL Lymph # (Auto) 1.5 (0.6-2.4) K/uL [place] # (Auto) 0.7 (0.0-0.8) K/uL Eos # (Auto) 0.1 (0.0-0.7) K/uL Baso # (Auto) 0.0 (0.0-0.1) K/uL Nucleated RBC % 0.0 /100WBC Nucleated RBCs # 0 K/uL Sodium 139 (136-146) mmol/L Potassium 4.5 (3.5-5.1) mmol/L Chloride 112 H (98-110) mmol/L Carbon Dioxide 20 L (21-31) mmol/L BUN 47 H (6.0-23.0) mg/dL Creatinine 1.5 (0.6-1.5) mg/dL Est Cr Clr Drug Dosing 31.21 mL/min Estimated GFR (MDRD) 44.1 ml/min Glucose 96 (60-110) mg/dL POC Glucose 90 (60-110) mg/dL Calcium 8.4 L (8.8-10.8) mg/dL Vitamin B12 (200-1100) PG/ML Urine Color Urine Appearance Urine pH (5.0-8.0) Ur Specific [place] (1.001-1.035) Urine Protein (NEGATIVE) mg/dL Urine Glucose (UA) (NEGATIVE) mg/dL Urine Ketones (NEGATIVE) mg/dL Urine Occult Blood (NEGATIVE) Urine Nitrite (NEGATIVE) Urine Bilirubin (NEGATIVE) Urine Urobilinogen (<2.0) EU/dL Ur Leukocyte Esterase (NEGATIVE) Urine RBC (0-2/HPF) Urine WBC (0-5/HPF) Ur Epithelial Cells (NONE-FEW) Urine Bacteria (NEGATIVE) 05/21/17 Range/Units 11:39 WBC (4.0-11.0) K/uL RBC (4.50-5.90) M/uL Hgb (13.0-17.0) g/dL Hct (38.0-50.0) % MCV (80.0-98.0) fL MCH (27.0-32.0) pg MCHC (31.0-37.0) g/dL RDW Std Deviation (28.0-62.0) fl RDW Coeff of Pura (11.0-15.0) % Plt Count (150-400) K/uL MPV (7.40-12.00) fL Neut % (Auto) (48.0-80.0) % Lymph % (Auto) (16.0-40.0) % [place] % (Auto) (0.0-15.0) % Eos % (Auto) (0.0-7.0) % Baso % (Auto) (0.0-1.5) % Neut # (Auto) (1.4-5.7) K/uL Lymph # (Auto) (0.6-2.4) K/uL [place] # (Auto) (0.0-0.8) K/uL Eos # (Auto) (0.0-0.7) K/uL Baso # (Auto) (0.0-0.1) K/uL Nucleated RBC % /100WBC Nucleated RBCs # K/uL Sodium (136-146) mmol/L Potassium (3.5-5.1) mmol/L Chloride (98-110) mmol/L Carbon Dioxide (21-31) mmol/L BUN (6.0-23.0) mg/dL Creatinine (0.6-1.5) mg/dL Est Cr Clr Drug Dosing mL/min Estimated GFR (MDRD) ml/min Glucose (60-110) mg/dL POC Glucose 145 H (60-110) mg/dL Calcium (8.8-10.8) mg/dL Vitamin B12 (200-1100) PG/ML Urine Color Urine Appearance Urine pH (5.0-8.0) Ur Specific [place] (1.001-1.035) Urine Protein (NEGATIVE) mg/dL Urine Glucose (UA) (NEGATIVE) mg/dL Urine Ketones (NEGATIVE) mg/dL Urine Occult Blood (NEGATIVE) Urine Nitrite (NEGATIVE) Urine Bilirubin (NEGATIVE) Urine Urobilinogen (<2.0) EU/dL Ur Leukocyte Esterase (NEGATIVE) Urine RBC (0-2/HPF) Urine WBC (0-5/HPF) Ur Epithelial Cells (NONE-FEW) Urine Bacteria (NEGATIVE) Med Orders - Current: Current Medications Aspirin (Aspirin) 81 mg PO DAILY [facility] Last Admin: 05/21/17 09:58 Dose: 81 mg Atorvastatin Calcium (Lipitor) 40 mg PO Q24H [facility] Last Admin: 05/20/17 16:57 Dose: 40 mg Heparin Sodium (Porcine) (Heparin Sodium) 5,000 units SUBCUT BID [facility] Last Admin: 05/21/17 09:58 Dose: 5,000 units Insulin Aspart (Novolog) 0 unit SUBCUT TIDAC [facility] PRN Reason: Protocol Last Admin: 05/21/17 12:14 Dose: Not Given Lorazepam (Ativan) 0.5 mg IVPUSH ONETIME PRN PRN Reason: give prior to MRI Last Admin: 05/20/17 17:03 Dose: 0.5 mg Ondansetron HCl (Zofran) 4 mg IVPUSH Q4H PRN PRN Reason: Nausea Discontinued Medications Aspirin (Aspirin) 325 mg PO ONETIME STA Stop: 05/19/17 17:06 Last Admin: 05/19/17 17:48 Dose: 325 mg Sodium Chloride (Normal Saline) 1,000 mls @ 999 mls/hr IV STAT ONE Stop: 05/19/17 16:31 Last Infusion: 05/19/17 16:17 Dose: 150 mls/hr Sodium Chloride (Normal Saline) 1,000 mls @ 100 mls/hr IV ASDIRECTED [facility] Last Admin: 05/20/17 17:02 Dose: 100 mls/hr Lorazepam (Ativan) 0.5 mg IVPUSH ONETIME ONE Stop: 05/20/17 09:01 Last Admin: 05/20/17 10:27 Dose: Not Given - Exam Physical Findings Comments:: Constitutional: No acute distress Neurological: Mental Status: Level of consciousness: somnolent, arouses to voice Comprehension/Praxis: Able to perform one step command Fund of Knowledge/memory: Impaired short term recall Cranial Nerves: Pupils round 2 mm. Gaze conjugate, EOMI. Sensation intact and symmetric to light touch. Facial strength is full and symmetric. Severely impaired hearing.. Normal shrug bilaterally. Tongue protrudes midline Motor: Right finger in flexed, pain with passive extension . No drift. Power 5/ 5 in upper limbs. At least antigravity in lower limbs TTE EF 35%-40% Carotid US - 50-69% stenosis bilaterally UA negative for infection, B12 normal Consult PN Assessment/Plan Procedures: Procedures ASSAY OF BLOOD/URIC ACID (10/23/15) ASSAY OF CK (CPK) (03/22/17) ASSAY OF FREE THYROXINE (03/17/17) ASSAY OF IRON (10/23/15) ASSAY OF LIPASE (02/02/14) ASSAY OF NATRIURETIC PEPTIDE (03/22/17) ASSAY OF PHOSPHORUS (03/04/15) ASSAY OF TROPONIN QUANT (03/22/17) ASSAY THYROID STIM HORMONE (03/17/17) BLOOD TYPING SEROLOGIC ABO (02/02/14) BLOOD TYPING SEROLOGIC RH(D) (02/02/14) CHEST X-RAY 1 VIEW FRONTAL (03/22/17) CHEST X-RAY 2VW FRONTAL&LATL (01/24/15) COMPLETE CBC AUTOMATED (04/30/16) COMPLETE CBC W/AUTO DIFF WBC (03/22/17) COMPREHEN METABOLIC PANEL (03/22/17) CREATINE MB FRACTION (03/22/17) CT ABD & PELVIS W/O CONTRAST (01/23/16) CT HEAD/BRAIN W/O DYE (03/22/17) CT NECK SPINE W/O DYE (03/22/17) ELECTROCARDIOGRAM TRACING (03/22/17) EMERGENCY DEPT VISIT (03/22/17) EMERGENCY DEPT VISIT (04/30/16) EMERGENCY DEPT VISIT (02/02/14) GLYCOSYLATED HEMOGLOBIN TEST (07/02/16) HYDRATE IV INFUSION ADD-ON (02/02/14) HYDRATION IV INFUSION INIT (02/02/14) IIV4 VACC NO PRSV 0.5 ML IM (02/24/16) LIPID PANEL (07/02/16) METABOLIC PANEL TOTAL CA (04/30/16) OFFICE/OUTPATIENT VISIT EST (07/02/16) OFFICE/OUTPATIENT VISIT EST (06/14/15) OFFICE/OUTPATIENT VISIT EST (02/28/15) OFFICE/OUTPATIENT VISIT EST (09/25/14) OFFICE/OUTPATIENT VISIT EST (08/10/13) PROTHROMBIN TIME (03/22/17) PT EVAL LOW COMPLEX 20 MIN (03/22/17) RBC ANTIBODY SCREEN (02/02/14) ROUTINE VENIPUNCTURE (03/22/17) RPR S/N/AX/GEN/TRNK2.6-7.5CM (04/30/16) THERAPEUTIC ACTIVITIES (03/22/17) TTE W/DOPPLER COMPLETE (09/07/14) UR ALBUMIN SEMIQUANTITATIVE (06/18/14) URINALYSIS AUTO W/SCOPE (04/30/16) URINE CULTURE/COLONY COUNT (01/22/16) X-RAY EXAM L-S SPINE 2/3 VWS (04/30/16) X-RAY EXAM OF ELBOW (04/30/16) X-RAY EXAM OF HUMERUS (02/02/14) X-RAY EXAM OF KNEE 3 (03/22/17) X-RAY EXAM OF PELVIS (03/22/17) Problem List Initiated/Reviewed/Updated: Yes My Orders Last 24 Hours: 89 year old chronically ill man with multiple comorbidities admitted with altered mental status X 2 days. Both right sided and left sided weakness were reported raising concern for TIA. He is somnolent, likely related to benzodiazepine yesterday, but otherwise he is back to baseline per daughter. UA neg for infection. B12 normal. Carotid US showed 50-69% stenosis. He could not tolerate MRI Recommendations: Agree with ASA and statin Agree with discharge given that he seems to back to baseline. THey have home health including PT planned.
--- NOTE | 2017-05-21 15:52 | PCM.DCSUM1 ---
Discharge Summary - Hospital Course Free Text/Narrative:: admission date: May 19, 2017 Discharge date: May 21, 2017 Admission diagnosis: #1. TIA #2. Confusion secondary to #1 #3. Right-sided weakness #4. Hyponatremia #5. Chronic kidney disease #6. History of hypertension,type 2 diabetes, hypothyroidism Discharge diagnosis: #1. Chronic cognitive impairment #2. Hyponatremia resolved #3. Right-sided weakness resolved #4. History of hypertension, type 2 diabetes, hypothyroidism, chronic kidney disease Hospital course: 89-year-old male with the above history presented to the emergency department accompanied by his daughter and complaining of right-sided weakness. Patient has had signs and symptoms of confusion and weakness that have been progressively getting worse, particularly the last day prior to presentation. Majority of the history is gathered from the daughter. She told me that this past March, the patient had a syncopal episode was discharged after observation with physical therapy. She tells me that the patient has been working with physical therapy for ambulation and has had difficulty ambulating since that. She will not tell me that the day prior to presentation, she noticed him to have right-sided weakness including his right arm and right leg. Has difficult for him to get up out of a chair more so than usual. He is also not making sense with how he was talking. Patient was then admitted for possible stroke workup. CT of the head in the emergency department was negative. Initially, an MRI of the brain along with MRA of the head and neck were also ordered. However, the patient was not able to sit still in the imaging machine despite use of Ativan. Patient was treated with routine stroke protocol management including aspirin, statin. Carotid ultrasound was able to be obtained which indicated 50-69% bilateral carotid artery stenosis. Echocardiogram was obtained and is currently pending. On physical exam, the patient displayed no right-sided weakness that I could appreciate. Neurological exam was appropriate throughout the hospital stay with no interval changes. This patient as per neurology showed signs of possible chronic baseline dementia. Given his history, it was decided that we could forego MRI and MRA as it would not exchange architect. Patient was then ultimately discharged on 81 mg of aspirin along with 40 mg of atorvastatin. The family was advised to bring the patient back in if he experiences any worsening confusion, weakness, chest pain or shortness of breath or anything else that would be alarming to them. Family agrees to the plan. Patient is to follow-up with Dr. Chávez, neurology , along with their primary care provider, Dr. Cisneros - Discharge Data Discharge Date: 05/21/17 Discharge Disposition: Home, Self-Care 01 Condition: Fair - Patient Summary/Data Consults: Consultations 05/20/17 10:19 Consult to Speech Language Pathology [WEIGHT CHECKER Evaluation and Treatment] [CONS] Routine OT Evaluation and Treatment [CONS] Routine PT Evaluation and Treatment [CONS] Routine 05/20/17 10:25 Consult to Physician [CONS] Routine - Patient Instructions Other/Special Instructions: Resume home care order - Discharge Plan Prescriptions/Med Rec: Aspirin 81 mg PO DAILY 30 Days #30 tab.chew atorvaSTATin [Lipitor] 40 mg PO Q24H 30 Days #30 tablet Home Medications: Home Meds Allopurinol [Zyloprim] 100 mg PO DAILY 03/22/17 [History] Levothyroxine Sodium [Levo-T] 50 mcg PO DAILY 03/22/17 [History] Sertraline HCl 25 mg PO DAILY 03/22/17 [History] amLODIPine [Norvasc] 5 mg PO DAILY #30 tablet 03/24/17 [Rx] Albuterol Sulfate 5 mg IH Q4H PRN 05/19/17 [History] Aspirin 81 mg PO DAILY 30 Days #30 tab.chew 05/21/17 [Rx] atorvaSTATin [Lipitor] 40 mg PO Q24H 30 Days #30 tablet 05/21/17 [Rx] Patient Handouts: Transient Ischemic Attack, [id number], Atorvastatin tablets , Aspirin, ASA oral tablets Referrals: Aide Chávez MD [Physician] - 07/08/17 8:30 am () Peng Cisneros MD [Physician] - 05/28/17 9:00 am - Discharge Summary/Plan Comment Discharge Summary/Plan Comment: admission date: May 19, 2017 Discharge date: May 21, 2017 Admission diagnosis: #1. TIA #2. Confusion secondary to #1 #3. Right-sided weakness #4. Hyponatremia #5. Chronic kidney disease #6. History of hypertension,type 2 diabetes, hypothyroidism Discharge diagnosis: #1. Chronic cognitive impairment #2. Hyponatremia resolved #3. Right-sided weakness resolved #4. History of hypertension, type 2 diabetes, hypothyroidism, chronic kidney disease Hospital course: 89-year-old male with the above history presented to the emergency department accompanied by his daughter and complaining of right-sided weakness. Patient has had signs and symptoms of confusion and weakness that have been progressively getting worse, particularly the last day prior to presentation. Majority of the history is gathered from the daughter. She told me that this past March, the patient had a syncopal episode was discharged after observation with physical therapy. She tells me that the patient has been working with physical therapy for ambulation and has had difficulty ambulating since that. She will not tell me that the day prior to presentation, she noticed him to have right-sided weakness including his right arm and right leg. Has difficult for him to get up out of a chair more so than usual. He is also not making sense with how he was talking. Patient was then admitted for possible stroke workup. CT of the head in the emergency department was negative. Initially, an MRI of the brain along with MRA of the head and neck were also ordered. However, the patient was not able to sit still in the imaging machine despite use of Ativan. Patient was treated with routine stroke protocol management including aspirin, statin. Carotid ultrasound was able to be obtained which indicated 50-69% bilateral carotid artery stenosis. Echocardiogram was obtained and is currently pending. On physical exam, the patient displayed no right-sided weakness that I could appreciate. Neurological exam was appropriate throughout the hospital stay with no interval changes. This patient as per neurology showed signs of possible chronic baseline dementia. Given his history, it was decided that we could forego MRI and MRA as it would not exchange architect. Patient was then ultimately discharged on 81 mg of aspirin along with 40 mg of atorvastatin. The family was advised to bring the patient back in if he experiences any worsening confusion, weakness, chest pain or shortness of breath or anything else that would be alarming to them. Family agrees to the plan. Patient is to follow-up with Dr. Chávez, neurology , along with their primary care provider, Dr. Cisneros - Patient Data Vitals - Most Recent: Last Vital Signs Temp 37.1 C 05/21/17 08:58 Pulse 60 05/21/17 08:58 Resp 16 05/21/17 08:58 BP 146/70 H 05/21/17 08:58 Pulse Ox 93 L 05/21/17 08:58 Weight - Most Recent: 72.575 kg I&O - Last 24 hours: Intake & Output 05/21/17 05/21/17 05/21/17 06:59 14:59 22:59 Intake Total 750 Output Total 525 Balance 225 Lab Results - Last 24 hrs: Laboratory Results - last 24 hr 05/20/17 05/20/17 05/21/17 Range/Units 16:08 16:26 06:03 WBC 4.92 (4.0-11.0) K/uL RBC 3.86 L (4.50-5.90) M/uL Hgb 11.9 L (13.0-17.0) g/dL Hct 36.2 L (38.0-50.0) % MCV 93.8 (80.0-98.0) fL MCH 30.8 (27.0-32.0) pg MCHC 32.9 (31.0-37.0) g/dL RDW Std Deviation 50.6 (28.0-62.0) fl RDW Coeff of Pura 15 (11.0-15.0) % Plt Count 133 L (150-400) K/uL MPV 9.40 (7.40-12.00) fL Neut % (Auto) 53.3 (48.0-80.0) % Lymph % (Auto) 29.7 (16.0-40.0) % [place] % (Auto) 14.0 (0.0-15.0) % Eos % (Auto) 2.8 (0.0-7.0) % Baso % (Auto) 0.2 (0.0-1.5) % Neut # (Auto) 2.6 (1.4-5.7) K/uL Lymph # (Auto) 1.5 (0.6-2.4) K/uL [place] # (Auto) 0.7 (0.0-0.8) K/uL Eos # (Auto) 0.1 (0.0-0.7) K/uL Baso # (Auto) 0.0 (0.0-0.1) K/uL Nucleated RBC % 0.0 /100WBC Nucleated RBCs # 0 K/uL Sodium (136-146) mmol/L Potassium (3.5-5.1) mmol/L Chloride (98-110) mmol/L Carbon Dioxide (21-31) mmol/L BUN (6.0-23.0) mg/dL Creatinine (0.6-1.5) mg/dL Est Cr Clr Drug Dosing mL/min Estimated GFR (MDRD) ml/min Glucose (60-110) mg/dL POC Glucose 137 H (60-110) mg/dL Calcium (8.8-10.8) mg/dL Urine Color YELLOW Urine Appearance CLEAR Urine pH 6.5 (5.0-8.0) Ur Specific [place] 1.010 (1.001-1.035) Urine Protein NEGATIVE (NEGATIVE) mg/dL Urine Glucose (UA) NEGATIVE (NEGATIVE) mg/dL Urine Ketones NEGATIVE (NEGATIVE) mg/dL Urine Occult Blood NEGATIVE (NEGATIVE) Urine Nitrite NEGATIVE (NEGATIVE) Urine Bilirubin NEGATIVE (NEGATIVE) Urine Urobilinogen 0.2 (<2.0) EU/dL Ur Leukocyte Esterase NEGATIVE (NEGATIVE) Urine RBC 0-1 (0-2/HPF) Urine WBC 0-1 (0-5/HPF) Ur Epithelial Cells RARE (NONE-FEW) Urine Bacteria RARE (NEGATIVE) 05/21/17 05/21/17 05/21/17 Range/Units 06:03 06:33 11:39 WBC (4.0-11.0) K/uL RBC (4.50-5.90) M/uL Hgb (13.0-17.0) g/dL Hct (38.0-50.0) % MCV (80.0-98.0) fL MCH (27.0-32.0) pg MCHC (31.0-37.0) g/dL RDW Std Deviation (28.0-62.0) fl RDW Coeff of Pura (11.0-15.0) % Plt Count (150-400) K/uL MPV (7.40-12.00) fL Neut % (Auto) (48.0-80.0) % Lymph % (Auto) (16.0-40.0) % [place] % (Auto) (0.0-15.0) % Eos % (Auto) (0.0-7.0) % Baso % (Auto) (0.0-1.5) % Neut # (Auto) (1.4-5.7) K/uL Lymph # (Auto) (0.6-2.4) K/uL [place] # (Auto) (0.0-0.8) K/uL Eos # (Auto) (0.0-0.7) K/uL Baso # (Auto) (0.0-0.1) K/uL Nucleated RBC % /100WBC Nucleated RBCs # K/uL Sodium 139 (136-146) mmol/L Potassium 4.5 (3.5-5.1) mmol/L Chloride 112 H (98-110) mmol/L Carbon Dioxide 20 L (21-31) mmol/L BUN 47 H (6.0-23.0) mg/dL Creatinine 1.5 (0.6-1.5) mg/dL Est Cr Clr Drug Dosing 31.21 mL/min Estimated GFR (MDRD) 44.1 ml/min Glucose 96 (60-110) mg/dL POC Glucose 90 145 H (60-110) mg/dL Calcium 8.4 L (8.8-10.8) mg/dL Urine Color Urine Appearance Urine pH (5.0-8.0) Ur Specific [place] (1.001-1.035) Urine Protein (NEGATIVE) mg/dL Urine Glucose (UA) (NEGATIVE) mg/dL Urine Ketones (NEGATIVE) mg/dL Urine Occult Blood (NEGATIVE) Urine Nitrite (NEGATIVE) Urine Bilirubin (NEGATIVE) Urine Urobilinogen (<2.0) EU/dL Ur Leukocyte Esterase (NEGATIVE) Urine RBC (0-2/HPF) Urine WBC (0-5/HPF) Ur Epithelial Cells (NONE-FEW) Urine Bacteria (NEGATIVE) Med Orders - Current: Current Medications Aspirin (Aspirin) 81 mg PO DAILY [facility] Last Admin: 05/21/17 09:58 Dose: 81 mg Atorvastatin Calcium (Lipitor) 40 mg PO Q24H [facility] Last Admin: 05/20/17 16:57 Dose: 40 mg Heparin Sodium (Porcine) (Heparin Sodium) 5,000 units SUBCUT BID [facility] Last Admin: 05/21/17 09:58 Dose: 5,000 units Insulin Aspart (Novolog) 0 unit SUBCUT TIDAC TED PRN Reason: Protocol Last Admin: 05/21/17 12:14 Dose: Not Given Lorazepam (Ativan) 0.5 mg IVPUSH ONETIME PRN PRN Reason: give prior to MRI Last Admin: 05/20/17 17:03 Dose: 0.5 mg Ondansetron HCl (Zofran) 4 mg IVPUSH Q4H PRN PRN Reason: Nausea Discontinued Medications Aspirin (Aspirin) 325 mg PO ONETIME STA Stop: 05/19/17 17:06 Last Admin: 05/19/17 17:48 Dose: 325 mg Sodium Chloride (Normal Saline) 1,000 mls @ 999 mls/hr IV STAT ONE Stop: 05/19/17 16:31 Last Infusion: 05/19/17 16:17 Dose: 150 mls/hr Sodium Chloride (Normal Saline) 1,000 mls @ 100 mls/hr IV ASDIRECTED TED Last Admin: 05/20/17 17:02 Dose: 100 mls/hr Lorazepam (Ativan) 0.5 mg IVPUSH ONETIME ONE Stop: 05/20/17 09:01 Last Admin: 05/20/17 10:27 Dose: Not Given *Q Meaningful Use (DIS) - VTE *Q VTE Criteria *Q: - Stroke *Q Stroke Criteria *Q: - AMI *Q AMI Criteria *Q:
--- NOTE | 2017-05-21 18:15 | ECHO ---
The echocardiogram report can be seen in this patient's EMR (electronic medical records) in the Reports section. This report has also been scanned into PACS and can be seen there. NANCY
== END 2017-05-21 14:05 | disposition home or self-care (01) ==
LOC: MW.ED 14:20 → UNDOADMOB 15:31 → MW.MS 15:31
PROVIDERS: ADMIT Family Medicine; ATTEND Family Medicine
DX: G31.84 Mild cognitive impairment of uncertain or unknown etiology (principal); E87.1 Hypo-osmolality and hyponatremia; E03.9 Hypothyroidism, unspecified; N18.9 Chronic kidney disease, unspecified; I12.9 Hypertensive chronic kidney disease with stage 1 through stage 4 chronic kidney disease, or unspecified chronic kidney disease; E78.00 Pure hypercholesterolemia, unspecified; N40.0 Benign prostatic hyperplasia without lower urinary tract symptoms; E11.22 Type 2 diabetes mellitus with diabetic chronic kidney disease; J44.9 Chronic obstructive pulmonary disease, unspecified; F32.9 Major depressive disorder, single episode, unspecified; M10.9 Gout, unspecified; G93.40 Encephalopathy, unspecified; Z79.899 Other long term (current) drug therapy; Z79.82 Long term (current) use of aspirin; Z85.038 Personal history of other malignant neoplasm of large intestine; Z87.891 Personal history of nicotine dependence
CPT/HCPCS: 36415; 70450; 71045; 80048; 80053; 80061; 81001; 82607; 82962; 84443; 84484; 85025; 85610; 85730; 92610; 93005; 93306; 93880; 96361; 96372; 97161; 97165; 99285; A9270; G0378; J1644; J1815; J2060; J7040; 96360

== ENCOUNTER 2017-06-25 12:11 | Inpatient (IN) | payer MEDICARE, BC ==
--- NOTE | 2017-06-25 12:18 | EDM.PDOC ---
ED HPI GENERAL MEDICAL PROBLEM - General Chief Complaint: Genitourinary Problem Stated Complaint: AMB Time Seen by Provider: 06/25/17 12:17 Source of Information: Reports: Patient - History of Present Illness INITIAL COMMENTS - FREE TEXT/NARRATIVE: HISTORY AND PHYSICAL: History of present illness: [Patient arrives via EMS] General weakness some incontinence patient wears depends on a general basis this is not new for him, he presents mainly has a primary complaint of blood in urine as well as passing clots. No history of urinary tract problems outside of enlarged prostate with sounds to be a turp performed 15 years prior No fever nausea vomiting chills sweats no chest pain shortness breath headache dizziness palpitation no bowel symptoms some general weakness and hearing difficulty hearing difficulty is not new Review of systems: As per history of present illness and below otherwise all systems reviewed and negative. Past medical history: As per history of present illness and as reviewed below otherwise noncontributory. Surgical history: As per history of present illness and as reviewed below otherwise noncontributory. Social history: No reported history of drug or alcohol abuse. Family history: As per history of present illness and as reviewed below otherwise noncontributory. Physical exam: HEENT: Atraumatic, normocephalic, pupils reactive, negative for conjunctival pallor or scleral icterus, mucous membranes moist, throat clear, neck supple, nontender, trachea midline. Lungs: Clear to auscultation, breath sounds equal bilaterally, chest nontender. Heart: S1S2, regular, negative for clicks, rubs, or JVD. Abdomen: Soft, nondistended, nontender. Negative for masses or hepatosplenomegaly. Negative for costovertebral tenderness. Pelvis: Stable nontender. Genitourinary: Deferred. Rectal: Deferred. Extremities: Atraumatic, negative for cords or calf pain. Neurovascular unremarkable. Neuro: Awake, alert, oriented. Cranial nerves II through XII unremarkable. Cerebellum unremarkable. Motor and sensory unremarkable throughout. Exam nonfocal. Diagnostics: [CBC CMP troponin INR EKG Chest 1 view Pelvic ultrasound ] Renal ultrasound Urine culture Blood culture Therapeutics: [Cipro 400 mg IV Normal saline 1 25 mL per hour] Impression: UTI [Hematuria] with passing clots Gen. weakness Electrolyte abnormalities Renal insufficiency Observation admission for above imaging to be performed on the floor Definitive disposition and diagnosis as appropriate pending reevaluation and review of above. - Related Data Allergies Allergy/AdvReac Type Severity Reaction Status Date / Time No Known Allergies Allergy Verified 05/19/17 14:31 Home Meds: Home Meds Allopurinol [Zyloprim] 100 mg PO DAILY 03/22/17 [History] Levothyroxine Sodium [Levo-T] 50 mcg PO DAILY 03/22/17 [History] Sertraline HCl 25 mg PO DAILY 03/22/17 [History] amLODIPine [Norvasc] 5 mg PO DAILY #30 tablet 03/24/17 [Rx] Albuterol Sulfate 5 mg IH Q4H PRN 05/19/17 [History] Aspirin 81 mg PO DAILY 30 Days #30 tab.chew 05/21/17 [Rx] atorvaSTATin [Lipitor] 40 mg PO Q24H 30 Days #30 tablet 05/21/17 [Rx] Past Medical History HEENT History: Reports: Hard of Hearing, Impaired Vision Cardiovascular History: Reports: High Cholesterol, Hypertension, Other (See Below) Other Cardiovascular History: hypotension Respiratory History: Reports: Other (See Below) Other Respiratory History: emphysema Gastrointestinal History: Reports: None Genitourinary History: Reports: BPH Musculoskeletal History: Reports: Other (See Below) Other Musculoskeletal History: cervical fracture Neurological History: Reports: Head Trauma Endocrine/Metabolic History: Reports: Diabetes, Type II, Hypothyroidism Hematologic History: Reports: None Immunologic History: Reports: None Oncologic (Cancer) History: Reports: None - Past Surgical History Head Surgeries/Procedures: Reports: None GI Surgical History: Reports: Other (See Below) Social & Family History - Family History Family Medical History: Unobtainable - Tobacco Use Smoking Status *Q: Never Smoker Used Tobacco, but Quit: No Month Tobacco Last Used: years ago Second Hand Smoke Exposure: No - Caffeine Use Caffeine Use: Reports: Coffee - Alcohol Use Days Per Week of Alcohol Use: 0 - Recreational Drug Use Recreational Drug Use: No - Living Situation & Occupation Living situation: Reports: with Family Occupation: Retired ED ROS GENERAL - Review of Systems Review Of Systems: ROS reveals no pertinent complaints other than HPI. ED EXAM, GENERAL - Physical Exam Exam: See Below Course - Vital Signs Last Recorded V/S: Last Vital Signs Temp 98.2 F 06/25/17 12:16 Pulse 73 06/25/17 12:16 Resp 16 06/25/17 12:16 BP 161/81 H 06/25/17 12:16 Pulse Ox 97 06/25/17 12:16 - Orders/Labs/Meds Orders: Active Orders 24 hr Category Date Time Status EKG Documentation Completion [RC] STAT Care 06/25/17 12:15 Active Abdomen Ltd [US] Stat Exams 06/25/17 15:13 Ordered Pelvis Non OB Ltd [US] Stat Exams 06/25/17 12:15 Ordered CULTURE URINE [RM] Stat Lab 06/25/17 13:55 Received Ciprofloxacin in D5W [Cipro in D5W 400 MG/200 ML] 400 Med 06/25/17 15:30 Ordered mg Premix Bag 1 bag IV Q12H Sodium Chloride 0.9% [Normal Saline] 500 ml Med 06/25/17 14:00 Active IV .BOLUS Medication Orders Sodium Chloride (Normal Saline) 500 mls @ 125 mls/hr IV .BOLUS TED Last Admin: 06/25/17 13:58 Dose: 125 mls/hr Labs: Laboratory Tests 06/25/17 06/25/17 06/25/17 Range/Units 12:28 12:28 12:28 WBC 9.76 (4.0-11.0) K/uL RBC 3.74 L (4.50-5.90) M/uL Hgb 11.7 L (13.0-17.0) g/dL Hct 35.0 L (38.0-50.0) % MCV 93.6 (80.0-98.0) fL MCH 31.3 (27.0-32.0) pg MCHC 33.4 (31.0-37.0) g/dL RDW Std Deviation 50.0 (28.0-62.0) fl RDW Coeff of Pura 15 (11.0-15.0) % Plt Count 162 (150-400) K/uL MPV 9.10 (7.40-12.00) fL Neut % (Auto) 88.7 H (48.0-80.0) % Lymph % (Auto) 5.3 L (16.0-40.0) % [place] % (Auto) 5.9 (0.0-15.0) % Eos % (Auto) 0.1 (0.0-7.0) % Baso % (Auto) 0.0 (0.0-1.5) % Neut # (Auto) 8.7 H (1.4-5.7) K/uL Lymph # (Auto) 0.5 L (0.6-2.4) K/uL [place] # (Auto) 0.6 (0.0-0.8) K/uL Eos # (Auto) 0.0 (0.0-0.7) K/uL Baso # (Auto) 0.0 (0.0-0.1) K/uL Nucleated RBC % 0.0 /100WBC Nucleated RBCs # 0 K/uL INR 1.08 Sodium 130 L (136-146) mmol/L Potassium 4.4 (3.5-5.1) mmol/L Chloride 98 (98-110) mmol/L Carbon Dioxide 18 L (21-31) mmol/L BUN 52 H (6.0-23.0) mg/dL Creatinine 2.4 H (0.6-1.5) mg/dL Est Cr Clr Drug Dosing 20.19 mL/min Estimated GFR (MDRD) 25.6 ml/min Glucose 276 H (60-110) mg/dL Calcium 8.7 L (8.8-10.8) mg/dL Total Bilirubin 0.7 (0.1-1.5) mg/dL AST 20 (5-40) IU/L ALT 19 (8-54) IU/L Alkaline Phosphatase 113 (40-150) Troponin I < 0.10 (0.0-0.29) NG/ML Total Protein 6.3 (6.0-8.0) g/dL Albumin 3.2 L (3.4-4.8) g/dL Globulin 3.1 (2.0-3.5) g/dL Albumin/Globulin Ratio 1.0 L (1.3-2.8) Urine Color Urine Appearance Urine pH (5.0-8.0) Ur Specific [place] (1.001-1.035) Urine Protein (NEGATIVE) mg/dL Urine Glucose (UA) (NEGATIVE) mg/dL Urine Ketones (NEGATIVE) mg/dL Urine Occult Blood (NEGATIVE) Urine Nitrite (NEGATIVE) Urine Bilirubin (NEGATIVE) Urine Ictotest Urine Urobilinogen (<2.0) EU/dL Ur Leukocyte Esterase (NEGATIVE) Urine RBC (0-2/HPF) Urine WBC (0-5/HPF) Ur Epithelial Cells (NONE-FEW) Urine Bacteria (NEGATIVE) Urinalysis Comment 06/25/17 Range/Units 13:53 WBC (4.0-11.0) K/uL RBC (4.50-5.90) M/uL Hgb (13.0-17.0) g/dL Hct (38.0-50.0) % MCV (80.0-98.0) fL MCH (27.0-32.0) pg MCHC (31.0-37.0) g/dL RDW Std Deviation (28.0-62.0) fl RDW Coeff of Pura (11.0-15.0) % Plt Count (150-400) K/uL MPV (7.40-12.00) fL Neut % (Auto) (48.0-80.0) % Lymph % (Auto) (16.0-40.0) % [place] % (Auto) (0.0-15.0) % Eos % (Auto) (0.0-7.0) % Baso % (Auto) (0.0-1.5) % Neut # (Auto) (1.4-5.7) K/uL Lymph # (Auto) (0.6-2.4) K/uL [place] # (Auto) (0.0-0.8) K/uL Eos # (Auto) (0.0-0.7) K/uL Baso # (Auto) (0.0-0.1) K/uL Nucleated RBC % /100WBC Nucleated RBCs # K/uL INR Sodium (136-146) mmol/L Potassium (3.5-5.1) mmol/L Chloride (98-110) mmol/L Carbon Dioxide (21-31) mmol/L BUN (6.0-23.0) mg/dL Creatinine (0.6-1.5) mg/dL Est Cr Clr Drug Dosing mL/min Estimated GFR (MDRD) ml/min Glucose (60-110) mg/dL Calcium (8.8-10.8) mg/dL Total Bilirubin (0.1-1.5) mg/dL AST (5-40) IU/L ALT (8-54) IU/L Alkaline Phosphatase (40-150) Troponin I (0.0-0.29) NG/ML Total Protein (6.0-8.0) g/dL Albumin (3.4-4.8) g/dL Globulin (2.0-3.5) g/dL Albumin/Globulin Ratio (1.3-2.8) Urine Color RED Urine Appearance CLEAR Urine pH 7.0 (5.0-8.0) Ur Specific [place] 1.015 (1.001-1.035) Urine Protein >=300 (NEGATIVE) mg/dL Urine Glucose (UA) NEGATIVE (NEGATIVE) mg/dL Urine Ketones TRACE H (NEGATIVE) mg/dL Urine Occult Blood LARGE H (NEGATIVE) Urine Nitrite POSITIVE H (NEGATIVE) Urine Bilirubin MODERATE H (NEGATIVE) Urine Ictotest NEGATIVE Urine Urobilinogen 1.0 (<2.0) EU/dL Ur Leukocyte Esterase TRACE (NEGATIVE) Urine RBC TOO NUMBEROUS TO CT (0-2/HPF) Urine WBC 1-2 (0-5/HPF) Ur Epithelial Cells OCCASIONAL (NONE-FEW) Urine Bacteria FEW (NEGATIVE) Urinalysis Comment Meds: Medications Generic Name Dose Route Start Last Admin Trade Name Freq PRN Reason Stop Dose Admin Sodium Chloride 500 mls @ 125 mls/hr 06/25/17 14:00 06/25/17 13:58 Normal Saline IV 125 mls/hr .BOLUS TED Administration Departure - Departure Time of Disposition: 15:21 Disposition: Refer to Observation Condition: Fair Clinical Impression: Hematuria, UTI, Urinary tract infectious disease, Renal insufficiency, Hyperglycemia - Discharge Information Referrals: Peng Cisneros MD [Primary Care Provider] - Forms: ED Department Discharge - My Orders Last 24 Hours: My Active Orders 06/25/17 12:15 EKG Documentation Completion [RC] STAT Pelvis Non OB Ltd [US] Stat 06/25/17 13:55 CULTURE URINE [RM] Stat 06/25/17 14:00 Sodium Chloride 0.9% [Normal Saline] 500 ml IV .BOLUS 06/25/17 15:13 Abdomen Ltd [US] Stat 06/25/17 15:30 Ciprofloxacin in D5W [Cipro in D5W 400 MG/200 ML] 400 mg Premix Bag 1 bag IV Q12H - Assessment/Plan Last 24 Hours: My Active Orders 06/25/17 12:15 EKG Documentation Completion [RC] STAT Pelvis Non OB Ltd [US] Stat 06/25/17 13:55 CULTURE URINE [RM] Stat 06/25/17 14:00 Sodium Chloride 0.9% [Normal Saline] 500 ml IV .BOLUS 06/25/17 15:13 Abdomen Ltd [US] Stat 06/25/17 15:30 Ciprofloxacin in D5W [Cipro in D5W 400 MG/200 ML] 400 mg Premix Bag 1 bag IV Q12H
[2017-06-25 13:02] LABS: CHLORIDE,CL 98 mmol/L (98-110); SODIUM,NA 130 mmol/L (136-146)
--- NOTE | 2017-06-25 13:05 | CR ---
EXAMINATION: Portable chest radiograph. HISTORY: Pain. FINDINGS: The trachea is midline. The cardiomediastinal silhouette is within normal limits. Mild interstitial p rominence again noted. Mild right infrahilar atelectasis and/or infiltrate. No pleural effusion or pn eumothorax. Moderate degenerative changes noted within the shoulders bilaterally. IMPRESSION: Mild right basilar atelectasis and/or infiltrate.
[2017-06-25] MEDS ORDERED: Sodium Chloride 0.9% 500 ML IV SCH (14:00)
[2017-06-25] MEDS ORDERED: Ciprofloxacin in D5W 400 MG in Premix Bag 1 BAG IV SCH ×2 (15:30)
--- NOTE | 2017-06-25 15:56 | PCM.HP ---
H&P History of Present Illness - General Date of Service: 06/25/17 Admit Problem/Dx: hematuria Source of Information: Patient, Family ( at bedside) History Limitations: Reports: No Limitations - History of Present Illness Initial Comments - Free Text/Narative: This 89 year old male with pmh of HTN, hypothyroidism, DM, emphysema recent TIA presents today to ED with concerns a hematuria. Him and his report it started last evening and has continued. He denies any fevers or abdominal pain. They say this happened a few years ago and they saw Dr Mena but not sure what it was. He denies burning with urination. He is incontinent at night and uses a brief, but then during the day voids in the toilet. He denies neck pain, URI symptoms. He has persistent cough with hx of emphysema per and normally has daily cough and uses nebulizers at home, no changes. He denies black or bloody BMs. His reports things are going well at home, they have Home Health for PT/OT as well. She reports he has good days and bad days. In the ED no leukocytosis noted, hgb 11.7 hct 35.0, Na 130, bicarb 18, BUN 52, Cr 2.4, baseline is around 1.5-1.7. UA revealed trace leukocyte esterase, WBC 1- 2, large blood and too numerous to count RBC, nitrite positive. Abd US pending. CXR revealed R basilar atelectasis/consolidation. UC and BC obtained and pending. He will be admitted observation for hematuria and UTI. - Related Data Allergies/Adverse Reactions: Allergies Allergy/AdvReac Type Severity Reaction Status Date / Time No Known Allergies Allergy Verified 05/19/17 14:31 Home Medications: Home Meds Allopurinol [Zyloprim] 100 mg PO DAILY 03/22/17 [History] Levothyroxine Sodium [Levo-T] 50 mcg PO DAILY 03/22/17 [History] Sertraline HCl 25 mg PO DAILY 03/22/17 [History] amLODIPine [Norvasc] 5 mg PO DAILY #30 tablet 03/24/17 [Rx] Albuterol Sulfate 5 mg IH Q4H PRN 05/19/17 [History] Aspirin 81 mg PO DAILY 30 Days #30 tab.chew 05/21/17 [Rx] atorvaSTATin [Lipitor] 40 mg PO Q24H 30 Days #30 tablet 05/21/17 [Rx] Past Medical History HEENT History: Reports: Hard of Hearing, Impaired Vision Cardiovascular History: Reports: High Cholesterol, Hypertension, Other (See Below) Other Cardiovascular History: hypotension Respiratory History: Reports: Other (See Below) Other Respiratory History: emphysema Gastrointestinal History: Reports: None. Denies: GERD, GI Bleed Genitourinary History: Reports: BPH, Other (See Below) (renal cysts, hematuria) Musculoskeletal History: Reports: Other (See Below) Other Musculoskeletal History: cervical fracture Neurological History: Reports: Head Trauma, TIA Endocrine/Metabolic History: Reports: Diabetes, Type II, Hypothyroidism Hematologic History: Reports: None Immunologic History: Reports: None Oncologic (Cancer) History: Reports: None - Past Surgical History Head Surgeries/Procedures: Reports: None GI Surgical History: Reports: Other (See Below) Male Surgical History: Reports: TURP-Transurethral Resection of Prostate ( 2000), Other (See Below) (cystoscopy 2015, no findings.) Social & Family History - Family History Family Medical History: Unobtainable - Tobacco Use Smoking Status *Q: Never Smoker Used Tobacco, but Quit: No Month Tobacco Last Used: years ago Second Hand Smoke Exposure: No - Caffeine Use Caffeine Use: Reports: Coffee - Alcohol Use Days Per Week of Alcohol Use: 0 - Recreational Drug Use Recreational Drug Use: No - Living Situation & Occupation Living situation: Reports: with Family Occupation: Retired H&P Review of Systems - Review of Systems: Review Of Systems: See Below General: Reports: Fatigue. Denies: Fever, Chills, Malaise HEENT: Reports: No Symptoms. Denies: Hearing Changes, Sinus Congestion, Sore Throat, Vertigo Pulmonary: Reports: No Symptoms, Cough (has persistent daily cough, no changes.) . Denies: Shortness of Breath Cardiovascular: Reports: No Symptoms. Denies: Chest Pain, Edema, Lightheadedness Gastrointestinal: Reports: No Symptoms. Denies: Abdominal Pain, Diarrhea, Decreased Appetite, Distension, Nausea, Vomiting Genitourinary: Reports: Incontinence (at baseline), Hematuria. Denies: Dysuria , Frequency, Flank Pain Musculoskeletal: Reports: No Symptoms. Denies: Neck Pain Psychiatric: Reports: No Symptoms. Denies: Confusion Neurological: Reports: No Symptoms. Denies: Confusion Hematologic/Lymphatic: Reports: No Symptoms Immunologic: Reports: No Symptoms Exam - Exam Exam: See Below - Vital Signs Vital Signs: Last Vital Signs Temp 98.2 F 06/25/17 12:16 Pulse 73 06/25/17 12:16 Resp 16 06/25/17 12:16 BP 161/81 H 06/25/17 12:16 Pulse Ox 97 06/25/17 12:16 Weight: 77.7 kg - Exam General: Alert, Oriented, Cooperative HEENT: Conjunctiva Clear, Nares Patent, Posterior Pharynx Clear, Pupils Equal Neck: Supple, Trachea Midline Lungs: Decreased Breath Sounds (R base) Cardiovascular: Regular Rate, Regular Rhythm, Normal S1, Normal S2 GI/Abdominal Exam: Normal Bowel Sounds, Soft, Non-Tender, No Organomegaly, No Distention, No Abnormal Bruit, No Mass, Pelvis Stable (Male) Exam: Other (gross hematuria in bowen.). No: Normal Prostate (very large prostate, firm no tenderness ), Circumcised, Scrotal Swelling, Scrotum Tenderness (L), Scrotum Tenderness (R), Testicular Mass, Testicular Tenderness ( L), Testicular Tenderness (R), Urethral Discharge Rectal (Males) Exam: Normal Exam, Normal Rectal Tone. No: Black Stool, Fecal Impaction, Mass Extremities: Normal Inspection, Normal Range of Motion, Non-Tender, No Pedal Edema, Normal Capillary Refill Neuro Extensive - Mental Status: Alert, Oriented x3, Normal Mood/Affect Neuro Extensive - Motor, Sensory, Reflexes: CN II-XII Intact Psychiatric: Alert, Normal Affect, Normal Mood - Patient Data Result Diagrams: 06/25/17 12:28 06/25/17 12:28 *Q Meaningful Use (ADM) - VTE *Q VTE Criteria *Q: - Stroke *Q Stroke Criteria *Q: - AMI *Q AMI Criteria *Q: - Problem List (1) Hematuria SNOMED Code(s): 05614339 ICD Code: R31.9 - HEMATURIA, UNSPECIFIED Status: Acute Current Visit: Yes Qualifiers: Hematuria type: gross Qualified Code(s): R31.0 - Gross hematuria (2) Acute on chronic renal insufficiency SNOMED Code(s): 803561628 ICD Code: N28.9 - DISORDER OF KIDNEY AND URETER, UNSPECIFIED; N18.9 - CHRONIC KIDNEY DISEASE, UNSPECIFIED Status: Acute Current Visit: Yes (3) UTI, Urinary tract infectious disease SNOMED Code(s): 51324346 ICD Code: N39.0 - URINARY TRACT INFECTION, SITE NOT SPECIFIED Status: Acute Current Visit: Yes (4) TIA (transient ischemic attack) SNOMED Code(s): 527179449 ICD Code: G45.9 - TRANSIENT CEREBRAL ISCHEMIC ATTACK, UNSPECIFIED Status: Chronic Current Visit: No Qualifiers: Transient cerebral ischemia type: unspecified Qualified Code(s): G45.9 - Transient cerebral ischemic attack, unspecified (5) Unsteady gait SNOMED Code(s): 25900894 ICD Code: R26.81 - UNSTEADINESS ON FEET Status: Chronic Current Visit: No (6) BPH (benign prostatic hyperplasia) SNOMED Code(s): 870427485 ICD Code: N40.0 - BENIGN PROSTATIC HYPERPLASIA WITHOUT LOWER URINRY TRACT SYMP Status: Chronic Current Visit: No (7) Dementia SNOMED Code(s): 02289239 ICD Code: F03.90 - UNSPECIFIED DEMENTIA WITHOUT BEHAVIORAL DISTURBANCE Status: Chronic Current Visit: No (8) Emphysema SNOMED Code(s): 80405912 ICD Code: J43.9 - EMPHYSEMA, UNSPECIFIED Status: Chronic Current Visit: No (9) HTN (hypertension) SNOMED Code(s): 17364771 ICD Code: I10 - ESSENTIAL (PRIMARY) HYPERTENSION Status: Chronic Current Visit: No Qualifiers: Hypertension type: essential hypertension Qualified Code(s): I10 - Essential (primary) hypertension (10) DM type 2 (diabetes mellitus, type 2) SNOMED Code(s): 96005543 ICD Code: E11.9 - TYPE 2 DIABETES MELLITUS WITHOUT COMPLICATIONS Status: Acute Current Visit: Yes (11) Hypothyroidism SNOMED Code(s): 12863950 ICD Code: E03.9 - HYPOTHYROIDISM, UNSPECIFIED Status: Acute Current Visit : Yes Problem List Initiated/Reviewed/Updated: Yes Orders Last 24hrs: Active Orders 24 hr Category Date Time Status Levofloxacin/Dextrose 5%-Water [Levaquin in D5W 750 MG/ Med 06/25/17 16:00 Ordered 150 ML] 750 mg Premix Bag 1 bag IV Q48H Sodium Chloride 0.9% @ 100 MLS/HR(1,000ml) Med 06/25/17 16:00 Ordered Sodium Chloride 0.9% [Normal Saline] 1,000 ml IV ASDIRECTED Medication Orders Sodium Chloride (Normal Saline) 500 mls @ 125 mls/hr IV .BOLUS TED Last Admin: 06/25/17 13:58 Dose: 125 mls/hr Levofloxacin/Dextrose 750 mg/ (Premix) 150 mls @ 100 mls/hr IV Q48H TED Sodium Chloride (Normal Saline) 1,000 mls @ 100 mls/hr IV ASDIRECTED TED Assessment/Plan Comment:: This 89 year old male admitted with gross hematuria and UTI 1. Hematuria: Bowen placed in the ED. Will monitor Hgb in am. Abd US revealed echogenic renal cortices consistent with medical renal disease, possibly thickened heterogeneous bladder bella along the posterior aspect of fundus, overall not well characterized, neoplastic process cannot be excluded, no hydronephrosis. Will order PRN irrigation for hematuria. Hold ASA and pharmacologic VTE measures for now. Upon review of outpatient chart, he had TURP in 2000. In 2016 he had hematuria and Trina was consulted. Abd CT at that time suggested possible hemorrhagic cyst to L kidney, no other findings to renal system or bladder. Cystoscopy was completed by Dr Mena, with no significant findings, hematuria had not returned until now. 2. UTI: UC pending. Will order [id number] IV Q48hr and monitor 3. Suspected CAP: R basilar atelectasis vs consolidation. Levaquin as above. 4. SANTANA on chronic renal insufficiency: NS at 100. baseline Cr appears to be 1.5- 1.7. Will monitor labwork in am. 5. HTN: Continue Norvasc 6. DM type 2: ADA diet, diet controlled. Novolog SSI low dose. 7. Emphysema: Stable, continue breathing treatments. VTE prophylaxis: SCDs and ambulation. Dispo: 1-2 days
--- NOTE | 2017-06-25 16:26 | US ---
EXAMINATION: Renal and bladder ultrasound HISTORY: Renal ultrasound COMPARISON: Noncontrast CT dated 01/22/2017 TECHNIQUE: Grayscale, real-time, color Doppler imaging obtained. FINDINGS: The right kidney measures at least 12 cm and the left kidney measures at least 9.9 cm pole- to-pole without evidence of hydronephrosis. Renal cortical cysts are noted bilaterally. Otherwise no abnormal masses. Normal color Doppler flow. Overall renal cortical echotexture is increased. A Carroll catheter is noted within the urinary bladder. The posterior fundal wall of the urinary bladde r appears mildly thickened and heterogeneous. Underlying neoplastic process cannot be excluded. IMPRESSION: 1. Echogenic renal cortices bilaterally consistent with medical renal disease. 2. Possibly thickened heterogeneous bladder bella along the posterior aspect of the fundus, overall n ot well characterized. A neoplastic process cannot be excluded. 3. No hydronephrosis.
[2017-06-25] MEDS ORDERED: Albuterol 0.083% 2.5 MG/3 ML Neb Soln INH PRN (16:46)
[2017-06-25] MEDS ORDERED: Ondansetron 4 MG/2 ML SDV IVPUSH PRN (16:47)
[2017-06-25] MEDS: Sodium Chloride 0.9% 1,000 ML IV SCH ×2 (17:06→17:19)
[2017-06-25] MEDS: Levofloxacin/Dextrose 5%-Water 750 MG in Premix Bag 1 BAG IV SCH (17:06)
[2017-06-25] MEDS ORDERED: Albuterol 0.083% 2.5 MG/3 ML Neb Soln NEB PRN (17:10)
[2017-06-25] MEDS ORDERED: Albuterol/Ipratropium 3.0-0.5 MG/3 ML Neb Soln NEB PRN (17:10)
[2017-06-25] MEDS: atorvaSTATin 40 MG Tab PO SCH ×3 (17:30→21:50)
[2017-06-25] MEDS: Insulin Aspart 100 Units/ML 3 ML Pen SUBCUT SCH (17:40)
[2017-06-25] MEDS: amLODIPine 5 MG Tab PO SCH (21:50)
[2017-06-26] MEDS: Acetaminophen 325 MG Tab PO PRN ×3 (00:33→23:31)
[2017-06-26] MEDS: Sodium Chloride 0.9% 1,000 ML IV SCH ×2 (05:08→16:45)
[2017-06-26] MEDS: Insulin Aspart 100 Units/ML 3 ML Pen SUBCUT SCH ×3 (06:32→17:46)
[2017-06-26] MEDS: Levothyroxine 50 MCG Tab PO SCH (06:39)
[2017-06-26] MEDS ORDERED: Calcium Carbonate 500 MG Tab.Chew PO ONE ×3 (07:17→21:02)
[2017-06-26] MEDS ORDERED: Lactated Ringers 500 ML IV ONE (07:21)
--- NOTE | 2017-06-26 07:22 | PCM.PN ---
- General Info Date of Service: 06/26/17 Admission Dx/Problem (Free Text): hematuria Subjective Update: Having no complaints. Baseline confusing. Reported results of CT scan to and daughter. As per nursing still having significant hematuria overnight. No fevers. Functional Status: Reports: Pain Controlled, Tolerating Diet - Review of Systems General: Denies: Fever, Weakness, Fatigue HEENT: Denies: Headaches, Visual Changes Pulmonary: Denies: Shortness of Breath, Hemoptysis Cardiovascular: Denies: Chest Pain, Palpitations, Edema Gastrointestinal: Denies: Abdominal Pain, Diarrhea, Nausea, Vomiting Genitourinary: Reports: Hematuria. Denies: Dysuria Musculoskeletal: Denies: Neck Pain, Leg Pain Skin: Denies: Cyanosis Neurological: Denies: Confusion, Dizziness, Headache Psychiatric: Denies: Confusion - Patient Data Vitals - Most Recent: Last Vital Signs Temp 99.5 F 06/26/17 04:54 Pulse 66 06/26/17 04:54 Resp 17 06/26/17 04:54 BP 96/50 L 06/26/17 04:54 Pulse Ox 92 L 06/26/17 04:54 Weight - Most Recent: 77.7 kg I&O - Last 24 Hours: Intake & Output 06/25/17 06/26/17 06/26/17 22:59 06:59 14:59 Intake Total 1500 Output Total 1650 1200 Balance -1650 300 Lab Results Last 24 Hours: Laboratory Results - last 24 hr 06/25/17 06/26/17 06/26/17 Range/Units 17:39 05:29 05:29 WBC 8.20 (4.0-11.0) K/uL RBC 2.91 L (4.50-5.90) M/uL Hgb 9.1 L (13.0-17.0) g/dL Hct 26.8 L (38.0-50.0) % MCV 92.1 (80.0-98.0) fL MCH 31.3 (27.0-32.0) pg MCHC 34.0 (31.0-37.0) g/dL RDW Std Deviation 49.8 (28.0-62.0) fl RDW Coeff of Pura 15 (11.0-15.0) % Plt Count 145 L (150-400) K/uL MPV 9.00 (7.40-12.00) fL Neut % (Auto) 69.3 (48.0-80.0) % Lymph % (Auto) 19.9 (16.0-40.0) % [place] % (Auto) 9.0 (0.0-15.0) % Eos % (Auto) 1.7 (0.0-7.0) % Baso % (Auto) 0.1 (0.0-1.5) % Neut # (Auto) 5.7 (1.4-5.7) K/uL Lymph # (Auto) 1.6 (0.6-2.4) K/uL [place] # (Auto) 0.7 (0.0-0.8) K/uL Eos # (Auto) 0.1 (0.0-0.7) K/uL Baso # (Auto) 0.0 (0.0-0.1) K/uL Nucleated RBC % 0.0 /100WBC Nucleated RBCs # 0 K/uL Sodium 133 L (136-146) mmol/L Potassium 4.4 (3.5-5.1) mmol/L Chloride 106 (98-110) mmol/L Carbon Dioxide 19 L (21-31) mmol/L BUN 55 H (6.0-23.0) mg/dL Creatinine 2.2 H (0.6-1.5) mg/dL Est Cr Clr Drug Dosing 22.10 mL/min Estimated GFR (MDRD) 28.3 ml/min Glucose 97 (60-110) mg/dL POC Glucose 97 (60-110) mg/dL Calcium 8.2 L (8.8-10.8) mg/dL 06/26/17 Range/Units 05:51 WBC (4.0-11.0) K/uL RBC (4.50-5.90) M/uL Hgb (13.0-17.0) g/dL Hct (38.0-50.0) % MCV (80.0-98.0) fL MCH (27.0-32.0) pg MCHC (31.0-37.0) g/dL RDW Std Deviation (28.0-62.0) fl RDW Coeff of Pura (11.0-15.0) % Plt Count (150-400) K/uL MPV (7.40-12.00) fL Neut % (Auto) (48.0-80.0) % Lymph % (Auto) (16.0-40.0) % [place] % (Auto) (0.0-15.0) % Eos % (Auto) (0.0-7.0) % Baso % (Auto) (0.0-1.5) % Neut # (Auto) (1.4-5.7) K/uL Lymph # (Auto) (0.6-2.4) K/uL [place] # (Auto) (0.0-0.8) K/uL Eos # (Auto) (0.0-0.7) K/uL Baso # (Auto) (0.0-0.1) K/uL Nucleated RBC % /100WBC Nucleated RBCs # K/uL Sodium (136-146) mmol/L Potassium (3.5-5.1) mmol/L Chloride (98-110) mmol/L Carbon Dioxide (21-31) mmol/L BUN (6.0-23.0) mg/dL Creatinine (0.6-1.5) mg/dL Est Cr Clr Drug Dosing mL/min Estimated GFR (MDRD) ml/min Glucose (60-110) mg/dL POC Glucose 102 (60-110) mg/dL Calcium (8.8-10.8) mg/dL Med Orders - Current: Current Medications Acetaminophen (Tylenol) 650 mg PO Q4H PRN PRN Reason: Pain (Mild 1-3)/fever Last Admin: 06/26/17 00:33 Dose: 650 mg Albuterol (Proventil Neb Soln) 2.5 mg NEB Q2H PRN PRN Reason: Shortness Of Breath/wheezing Albuterol/Ipratropium (Duoneb 3.0-0.5 Mg/3 Ml) 3 ml NEB Q6HRRT PRN PRN Reason: SOB/wheezing Amlodipine Besylate (Norvasc) 5 mg PO 2100 TED Last Admin: 06/25/17 21:50 Dose: Not Given Atorvastatin Calcium (Lipitor) 40 mg PO 2100 TED Last Admin: 06/25/17 21:50 Dose: 40 mg Levofloxacin/Dextrose 750 mg/ (Premix) 150 mls @ 100 mls/hr IV Q48H [facility] Last Admin: 06/25/17 17:06 Dose: 100 mls/hr Sodium Chloride (Normal Saline) 1,000 mls @ 100 mls/hr IV ASDIRECTED [facility] Last Admin: 06/26/17 05:08 Dose: 100 mls/hr Lactated Ringer's (Ringers, Lactated) 500 mls @ 999 mls/hr IV .BOLUS ONE Stop: 06/26/17 07:51 Insulin Aspart (Novolog) 0 unit SUBCUT TIDAC [facility] PRN Reason: Protocol Last Admin: 06/26/17 06:32 Dose: Not Given Levothyroxine Sodium (Synthroid) 50 mcg PO ACBREAKFAST [facility] Last Admin: 06/26/17 06:39 Dose: 50 mcg Ondansetron HCl (Zofran) 4 mg IVPUSH Q4H PRN PRN Reason: Nausea Sertraline HCl (Zoloft) 25 mg PO DAILY [facility] Discontinued Medications Albuterol (Proventil Neb Soln) 5 mg INH Q4H PRN PRN Reason: Wheezing Atorvastatin Calcium (Lipitor) 40 mg PO Q24H [facility] Last Admin: 06/25/17 18:16 Dose: Not Given Calcium Carbonate/Glycine (Tums) 1,000 mg PO ONETIME ONE Stop: 06/26/17 07:18 Sodium Chloride (Normal Saline) 500 mls @ 125 mls/hr IV .BOLUS [facility] Last Admin: 06/25/17 13:58 Dose: 125 mls/hr Ciprofloxacin/Dextrose 400 mg/ (Premix) 200 mls @ 200 mls/hr IV Q12H [facility] Last Admin: 06/25/17 17:40 Dose: Not Given - Exam Quality Assessment: DVT Prophylaxis General: Alert, Oriented, Cooperative HEENT: Pupils Equal, Pupils Reactive, EOMI, Mucous Membr. Moist/[place] Neck: Supple, Trachea Midline, No JVD Lungs: Clear to Auscultation, Normal Respiratory Effort Cardiovascular: Regular Rate, Regular Rhythm, No Murmurs GI/Abdominal Exam: Normal Bowel Sounds, Soft, Non-Tender, No Organomegaly, No Distention (Male) Exam: Deferred Back Exam: Normal Inspection Extremities: Normal Inspection, Non-Tender, No Pedal Edema, Normal Capillary Refill Peripheral Pulses: 2+: Radial (L), Radial (R), Posterior Tibial (L), Posterior Tibial (R), Dorsalis Pedis (L), Dorsalis Pedis (R) Skin: Warm, Dry, Intact Neurological: No New Focal Deficit Psy/Mental Status: Alert, Normal Affect, Normal Mood - Problem List & Annotations (1) Acute on chronic renal insufficiency SNOMED Code(s): 390004417 Code(s): N28.9 - DISORDER OF KIDNEY AND URETER, UNSPECIFIED; N18.9 - CHRONIC KIDNEY DISEASE, UNSPECIFIED Status: Acute Priority: High Current Visit: Yes (2) DM type 2 (diabetes mellitus, type 2) SNOMED Code(s): 05640287 Code(s): E11.9 - TYPE 2 DIABETES MELLITUS WITHOUT COMPLICATIONS Status: Chronic Priority: Medium Current Visit: Yes Qualifiers: Diabetes mellitus complication status: without complication Diabetes mellitus mcfp insulin use: without medical terminologist use Qualified Code(s): E11.9 - Type 2 diabetes mellitus without complications (3) Hematuria SNOMED Code(s): 27736443 Code(s): R31.9 - HEMATURIA, UNSPECIFIED Status: Acute Priority: High Current Visit: Yes Qualifiers: Hematuria type: gross Qualified Code(s): R31.0 - Gross hematuria (4) Hypothyroidism SNOMED Code(s): 65835946 Code(s): E03.9 - HYPOTHYROIDISM, UNSPECIFIED Status: Chronic Priority: Medium Current Visit: Yes Qualifiers: Hypothyroidism type: unspecified Qualified Code(s): E03.9 - Hypothyroidism , unspecified (5) UTI, Urinary tract infectious disease SNOMED Code(s): 00205285 Code(s): N39.0 - URINARY TRACT INFECTION, SITE NOT SPECIFIED Status: Acute Priority: High Current Visit: Yes - Problem List Review Problem List Initiated/Reviewed/Updated: Yes - My Orders Last 24 Hours: My Active Orders 06/26/17 07:21 Lactated Ringers [Ringers, Lactated] 500 ml IV .BOLUS - Plan Plan:: 89 year old male admitted 06/25/17 with gross hematuria, UTI and suspected community acquired pneumonia with pmh of chronic renal insufficiency, htn, DMII , and epmhysema. 1. Hematuria: Continued hematuria overnight. Hgb down from 10 to 9.1 will cont. to monitor and if cont. bleeding may need to transfer as Urology out until beginning of July. Abd US revealed echogenic renal cortices consistent with medical renal disease, possibly thickened heterogeneous bladder bella along the posterior aspect of fundus, overall not well characterized, neoplastic process cannot be excluded, no hydronephrosis. Cont. PRN irrigation for hematuria. Hold ASA and pharmacologic VTE measures for now. CT abd/pelvis revealed hyperdensity within the urinary bladder consistent with hemorrhage, etiology uncertain. Marked prostatomegaly, left renal hyperdense cysts and multiple bilateral renal simple cortical cysts, nonspecific mild fat stranding in left pericolic gutter, etiology uncertain. Moderate-sized area of lung consolidation in basilar portion of the right lower lobe with small right pleural effusion, pneumonia not excluded. Upon review of outpatient chart, he had TURP in 2000. In 2016 he had hematuria and Trina was consulted. Abd CT at that time suggested possible hemorrhagic cyst to L kidney, no other findings to renal system or bladder. Cystoscopy was completed by Dr Mena, with no significant findings, hematuria had not returned until now. 2. UTI: UC pending. Cont. [id number] IV Q48hr and monitor 3. Suspected CAP: R basilar atelectasis vs consolidation. Levaquin as above. 4. SANTANA on chronic renal insufficiency: Cr improved from 2.4 to 2.2 today will bolus 500 LR this am. Baseline Cr appears to be 1.5-1.7. Cont. to monitor 5. HTN: Continue Norvasc 6. DM type 2: ADA diet, diet controlled. Novolog SSI low dose. 7. Emphysema: Stable, continue breathing treatments. VTE prophylaxis: SCDs and ambulation. Dispo: 1-2 days
[2017-06-26] MEDS: Sertraline 25 MG Tab PO SCH (08:29)
[2017-06-26] MEDS ORDERED: Lactated Ringers 500 ML IV SCH (19:45)
[2017-06-26] MEDS: atorvaSTATin 40 MG Tab PO SCH (23:25)
[2017-06-26] MEDS: amLODIPine 5 MG Tab PO SCH (23:25)
[2017-06-27] MEDS ORDERED: oxyCODONE 5 MG Tab PO PRN (00:40)
[2017-06-27] MEDS: Sodium Chloride 0.9% 1,000 ML IV SCH ×2 (05:46→23:38)
[2017-06-27] MEDS: Insulin Aspart 100 Units/ML 3 ML Pen SUBCUT SCH ×3 (06:52→17:03)
[2017-06-27] MEDS: Levothyroxine 50 MCG Tab PO SCH (06:56)
[2017-06-27] MEDS ORDERED: Calcium Carbonate 500 MG Tab.Chew PO ONE (07:25)
[2017-06-27] MEDS: Sertraline 25 MG Tab PO SCH (09:38)
--- NOTE | 2017-06-27 09:40 | PCM.DCSUM1 ---
Discharge Summary - Discharge Data Discharge Disposition: Home, Self-Care 01 Condition: Good - Discharge Diagnosis/Problem(s) (1) Acute on chronic renal insufficiency SNOMED Code(s): 137569586 ICD Code: N28.9 - DISORDER OF KIDNEY AND URETER, UNSPECIFIED; N18.9 - CHRONIC KIDNEY DISEASE, UNSPECIFIED Status: Acute Priority: High Current Visit: Yes (2) DM type 2 (diabetes mellitus, type 2) SNOMED Code(s): 20509360 ICD Code: E11.9 - TYPE 2 DIABETES MELLITUS WITHOUT COMPLICATIONS Status: Chronic Priority: Medium Current Visit: Yes Qualifiers: Diabetes mellitus complication status: without complication Diabetes mellitus cardiovascular specialist insulin use: without cardiovascular specialist use Qualified Code(s): E11.9 - Type 2 diabetes mellitus without complications (3) Hematuria SNOMED Code(s): 44109882 ICD Code: R31.9 - HEMATURIA, UNSPECIFIED Status: Acute Priority: High Current Visit: Yes Qualifiers: Hematuria type: gross Qualified Code(s): R31.0 - Gross hematuria (4) Hypothyroidism SNOMED Code(s): 80384225 ICD Code: E03.9 - HYPOTHYROIDISM, UNSPECIFIED Status: Chronic Priority: Medium Current Visit: Yes Qualifiers: Hypothyroidism type: unspecified Qualified Code(s): E03.9 - Hypothyroidism , unspecified (5) UTI, Urinary tract infectious disease SNOMED Code(s): 80798481 ICD Code: N39.0 - URINARY TRACT INFECTION, SITE NOT SPECIFIED Status: Acute Priority: High Current Visit: Yes - Patient Summary/Data Consults: Consultations 06/26/17 10:04 PT Evaluation and Treatment [CONS] Routine - Discharge Plan Home Medications: Home Meds Allopurinol [Zyloprim] 100 mg PO DAILY 03/22/17 [History] Levothyroxine Sodium [Levo-T] 50 mcg PO DAILY 03/22/17 [History] Sertraline HCl 25 mg PO DAILY 03/22/17 [History] amLODIPine [Norvasc] 5 mg PO DAILY #30 tablet 03/24/17 [Rx] Albuterol Sulfate 5 mg IH Q4H PRN 05/19/17 [History] Aspirin 81 mg PO DAILY 30 Days #30 tab.chew 05/21/17 [Rx] atorvaSTATin [Lipitor] 40 mg PO Q24H 30 Days #30 tablet 05/21/17 [Rx] Forms: ED Department Discharge Referrals: Peng Cisneros MD [Primary Care Provider] - - Patient Data Vitals - Most Recent: Last Vital Signs Temp 208.6 F H 06/27/17 08:00 Pulse 65 06/27/17 08:00 Resp 17 06/27/17 08:00 BP 126/56 L 06/27/17 08:00 Pulse Ox 96 06/27/17 08:00 Weight - Most Recent: 77.7 kg I&O - Last 24 hours: Intake & Output 06/26/17 06/27/17 06/27/17 22:59 06:59 14:59 Intake Total 2084 2478 Output Total 1320 2080 Balance 764 398 Lab Results - Last 24 hrs: Laboratory Results - last 24 hr 06/26/17 06/26/17 06/26/17 Range/Units 12:16 17:10 17:10 WBC 9.87 (4.0-11.0) K/uL RBC 3.00 L (4.50-5.90) M/uL Hgb 9.4 L (13.0-17.0) g/dL Hct 28.0 L (38.0-50.0) % MCV 93.3 (80.0-98.0) fL MCH 31.3 (27.0-32.0) pg MCHC 33.6 (31.0-37.0) g/dL RDW Std Deviation 50.8 (28.0-62.0) fl RDW Coeff of Pura 15 (11.0-15.0) % Plt Count 164 (150-400) K/uL MPV 9.00 (7.40-12.00) fL Neut % (Auto) 76.3 (48.0-80.0) % Lymph % (Auto) 13.8 L (16.0-40.0) % [place] % (Auto) 9.3 (0.0-15.0) % Eos % (Auto) 0.5 (0.0-7.0) % Baso % (Auto) 0.1 (0.0-1.5) % Neut # (Auto) 7.5 H (1.4-5.7) K/uL Lymph # (Auto) 1.4 (0.6-2.4) K/uL [place] # (Auto) 0.9 H (0.0-0.8) K/uL Eos # (Auto) 0.1 (0.0-0.7) K/uL Baso # (Auto) 0.0 (0.0-0.1) K/uL Nucleated RBC % 0.0 /100WBC Nucleated RBCs # 0 K/uL Sodium 134 L (136-146) mmol/L Potassium 4.3 (3.5-5.1) mmol/L Chloride 104 (98-110) mmol/L Carbon Dioxide 20 L (21-31) mmol/L BUN 58 H (6.0-23.0) mg/dL Creatinine 2.4 H (0.6-1.5) mg/dL Est Cr Clr Drug Dosing 20.26 mL/min Estimated GFR (MDRD) 25.6 ml/min Glucose 98 (60-110) mg/dL POC Glucose 133 H (60-110) mg/dL Calcium 8.4 L (8.8-10.8) mg/dL Blood Type Antibody Screen Crossmatch 06/26/17 06/27/17 06/27/17 Range/Units 17:26 05:39 05:39 WBC 7.56 (4.0-11.0) K/uL RBC 2.69 L (4.50-5.90) M/uL Hgb 8.2 L (13.0-17.0) g/dL Hct 24.7 L (38.0-50.0) % MCV 91.8 (80.0-98.0) fL MCH 30.5 (27.0-32.0) pg MCHC 33.2 (31.0-37.0) g/dL RDW Std Deviation 50.6 (28.0-62.0) fl RDW Coeff of Pura 15 (11.0-15.0) % Plt Count 154 (150-400) K/uL MPV 8.90 (7.40-12.00) fL Neut % (Auto) 65.5 (48.0-80.0) % Lymph % (Auto) 23.8 (16.0-40.0) % [place] % (Auto) 8.6 (0.0-15.0) % Eos % (Auto) 2.0 (0.0-7.0) % Baso % (Auto) 0.1 (0.0-1.5) % Neut # (Auto) 5.0 (1.4-5.7) K/uL Lymph # (Auto) 1.8 (0.6-2.4) K/uL [place] # (Auto) 0.7 (0.0-0.8) K/uL Eos # (Auto) 0.2 (0.0-0.7) K/uL Baso # (Auto) 0.0 (0.0-0.1) K/uL Nucleated RBC % 0.0 /100WBC Nucleated RBCs # 0 K/uL Sodium 136 (136-146) mmol/L Potassium 4.2 (3.5-5.1) mmol/L Chloride 109 (98-110) mmol/L Carbon Dioxide 18 L (21-31) mmol/L BUN 59 H (6.0-23.0) mg/dL Creatinine 2.3 H (0.6-1.5) mg/dL Est Cr Clr Drug Dosing 21.14 mL/min Estimated GFR (MDRD) 26.9 ml/min Glucose 106 (60-110) mg/dL POC Glucose 165 H (60-110) mg/dL Calcium 8.5 L (8.8-10.8) mg/dL Blood Type Antibody Screen Crossmatch 06/27/17 06/27/17 Range/Units 05:39 05:59 WBC (4.0-11.0) K/uL RBC (4.50-5.90) M/uL Hgb (13.0-17.0) g/dL Hct (38.0-50.0) % MCV (80.0-98.0) fL MCH (27.0-32.0) pg MCHC (31.0-37.0) g/dL RDW Std Deviation (28.0-62.0) fl RDW Coeff of Pura (11.0-15.0) % Plt Count (150-400) K/uL MPV (7.40-12.00) fL Neut % (Auto) (48.0-80.0) % Lymph % (Auto) (16.0-40.0) % [place] % (Auto) (0.0-15.0) % Eos % (Auto) (0.0-7.0) % Baso % (Auto) (0.0-1.5) % Neut # (Auto) (1.4-5.7) K/uL Lymph # (Auto) (0.6-2.4) K/uL [place] # (Auto) (0.0-0.8) K/uL Eos # (Auto) (0.0-0.7) K/uL Baso # (Auto) (0.0-0.1) K/uL Nucleated RBC % /100WBC Nucleated RBCs # K/uL Sodium (136-146) mmol/L Potassium (3.5-5.1) mmol/L Chloride (98-110) mmol/L Carbon Dioxide (21-31) mmol/L BUN (6.0-23.0) mg/dL Creatinine (0.6-1.5) mg/dL Est Cr Clr Drug Dosing mL/min Estimated GFR (MDRD) ml/min Glucose (60-110) mg/dL POC Glucose 118 H (60-110) mg/dL Calcium (8.8-10.8) mg/dL Blood Type A POSITIVE Antibody Screen NEGATIVE Crossmatch See Detail SHAYNE Results - Last 24 hrs: Microbiology 06/25/17 15:45 Aerobic Blood Culture - Preliminary Blood - Venous NO GROWTH AFTER 1 DAY Anaerobic Blood Culture - Preliminary NO GROWTH AFTER 1 DAY 06/25/17 16:03 Aerobic Blood Culture - Preliminary Blood - Venous - Lab Draw NO GROWTH AFTER 1 DAY Anaerobic Blood Culture - Preliminary NO GROWTH AFTER 1 DAY Med Orders - Current: Current Medications Acetaminophen (Tylenol) 650 mg PO Q4H PRN PRN Reason: Pain (Mild 1-3)/fever Last Admin: 06/26/17 23:31 Dose: 650 mg Albuterol (Proventil Neb Soln) 2.5 mg NEB Q2H PRN PRN Reason: Shortness Of Breath/wheezing Albuterol/Ipratropium (Duoneb 3.0-0.5 Mg/3 Ml) 3 ml NEB Q6HRRT PRN PRN Reason: SOB/wheezing Amlodipine Besylate (Norvasc) 5 mg PO 2100 TED Last Admin: 06/26/17 23:25 Dose: 5 mg Atorvastatin Calcium (Lipitor) 40 mg PO 2100 TED Last Admin: 06/26/17 23:25 Dose: 40 mg Levofloxacin/Dextrose 750 mg/ (Premix) 150 mls @ 100 mls/hr IV Q48H [facility] Last Admin: 06/25/17 17:06 Dose: 100 mls/hr Sodium Chloride (Normal Saline) 1,000 mls @ 100 mls/hr IV ASDIRECTED [facility] Last Admin: 06/27/17 05:46 Dose: 100 mls/hr Lactated Ringer's (Ringers, Lactated) 500 mls @ 999 mls/hr IV ASDIRECTED [facility] Insulin Aspart (Novolog) 0 unit SUBCUT TIDAC TED PRN Reason: Protocol Last Admin: 06/27/17 06:52 Dose: Not Given Levothyroxine Sodium (Synthroid) 50 mcg PO ACBREAKFAST [facility] Last Admin: 06/27/17 06:56 Dose: 50 mcg Ondansetron HCl (Zofran) 4 mg IVPUSH Q4H PRN PRN Reason: Nausea Oxycodone HCl (Oxycodone) 5 mg PO Q6H PRN PRN Reason: pain Last Admin: 06/27/17 00:56 Dose: 5 mg Sertraline HCl (Zoloft) 25 mg PO DAILY [facility] Last Admin: 06/27/17 09:38 Dose: 25 mg Discontinued Medications Albuterol (Proventil Neb Soln) 5 mg INH Q4H PRN PRN Reason: Wheezing Atorvastatin Calcium (Lipitor) 40 mg PO Q24H [facility] Last Admin: 06/25/17 18:16 Dose: Not Given Calcium Carbonate/Glycine (Tums) 1,000 mg PO ONETIME ONE Stop: 06/26/17 07:18 Last Admin: 06/26/17 08:28 Dose: 1,000 mg Calcium Carbonate/Glycine (Tums) 1,000 mg PO ONETIME ONE Stop: 06/26/17 19:46 Last Admin: 06/26/17 21:52 Dose: Not Given Calcium Carbonate/Glycine (Tums) 750 mg PO ONETIME ONE Stop: 06/26/17 21:03 Last Admin: 06/26/17 21:52 Dose: 750 mg Calcium Carbonate/Glycine (Tums) 1,000 mg PO ONETIME ONE Stop: 06/27/17 07:26 Last Admin: 06/27/17 09:38 Dose: 1,000 mg Sodium Chloride (Normal Saline) 500 mls @ 125 mls/hr IV .BOLUS [facility] Last Admin: 06/25/17 13:58 Dose: 125 mls/hr Ciprofloxacin/Dextrose 400 mg/ (Premix) 200 mls @ 200 mls/hr IV Q12H TED Last Admin: 06/25/17 17:40 Dose: Not Given Lactated Ringer's (Ringers, Lactated) 500 mls @ 999 mls/hr IV .BOLUS ONE Stop: 06/26/17 07:51 Last Admin: 06/26/17 08:29 Dose: 999 mls/hr *Q Meaningful Use (DIS) - VTE *Q VTE Criteria *Q: - Stroke *Q Stroke Criteria *Q: - AMI *Q AMI Criteria *Q:
--- NOTE | 2017-06-27 10:13 | PCM.PN ---
- General Info Date of Service: 06/27/17 Admission Dx/Problem (Free Text): hematuria Subjective Update: Having some catheter pain. No other complaints at this time. Family not present during initial exam this morning but talked with later. They state that he seems to be "fussing" with the catheter. I did order pain medication last night. As per nursing, flushing overnight revealed continued blood clots and but somewhat clear pink after. Functional Status: Reports: Pain Controlled, Tolerating Diet - Review of Systems General: Denies: Fever, Weakness, Fatigue HEENT: Denies: Headaches, Visual Changes Pulmonary: Denies: Shortness of Breath, Hemoptysis Cardiovascular: Denies: Chest Pain, Palpitations Gastrointestinal: Denies: Abdominal Pain, Constipation, Diarrhea, Nausea, Vomiting Genitourinary: Denies: Dysuria, Hematuria Musculoskeletal: Denies: Neck Pain, Leg Pain Skin: Denies: Cyanosis Neurological: Denies: Confusion, Dizziness, Headache Psychiatric: Denies: Confusion - Patient Data Vitals - Most Recent: Last Vital Signs Temp 208.6 F H 06/27/17 08:00 Pulse 65 06/27/17 08:00 Resp 17 06/27/17 08:00 BP 126/56 L 06/27/17 08:00 Pulse Ox 96 06/27/17 08:00 Weight - Most Recent: 77.7 kg I&O - Last 24 Hours: Intake & Output 06/26/17 06/27/17 06/27/17 22:59 06:59 14:59 Intake Total 2084 2478 Output Total 1320 2080 Balance 764 398 Lab Results Last 24 Hours: Laboratory Results - last 24 hr 06/26/17 06/26/17 06/26/17 Range/Units 12:16 17:10 17:10 WBC 9.87 (4.0-11.0) K/uL RBC 3.00 L (4.50-5.90) M/uL Hgb 9.4 L (13.0-17.0) g/dL Hct 28.0 L (38.0-50.0) % MCV 93.3 (80.0-98.0) fL MCH 31.3 (27.0-32.0) pg MCHC 33.6 (31.0-37.0) g/dL RDW Std Deviation 50.8 (28.0-62.0) fl RDW Coeff of Pura 15 (11.0-15.0) % Plt Count 164 (150-400) K/uL MPV 9.00 (7.40-12.00) fL Neut % (Auto) 76.3 (48.0-80.0) % Lymph % (Auto) 13.8 L (16.0-40.0) % Woods % (Auto) 9.3 (0.0-15.0) % Eos % (Auto) 0.5 (0.0-7.0) % Baso % (Auto) 0.1 (0.0-1.5) % Neut # (Auto) 7.5 H (1.4-5.7) K/uL Lymph # (Auto) 1.4 (0.6-2.4) K/uL Woods # (Auto) 0.9 H (0.0-0.8) K/uL Eos # (Auto) 0.1 (0.0-0.7) K/uL Baso # (Auto) 0.0 (0.0-0.1) K/uL Nucleated RBC % 0.0 /100WBC Nucleated RBCs # 0 K/uL Sodium 134 L (136-146) mmol/L Potassium 4.3 (3.5-5.1) mmol/L Chloride 104 (98-110) mmol/L Carbon Dioxide 20 L (21-31) mmol/L BUN 58 H (6.0-23.0) mg/dL Creatinine 2.4 H (0.6-1.5) mg/dL Est Cr Clr Drug Dosing 20.26 mL/min Estimated GFR (MDRD) 25.6 ml/min Glucose 98 (60-110) mg/dL POC Glucose 133 H (60-110) mg/dL Calcium 8.4 L (8.8-10.8) mg/dL Blood Type Antibody Screen Crossmatch 06/26/17 06/27/17 06/27/17 Range/Units 17:26 05:39 05:39 WBC 7.56 (4.0-11.0) K/uL RBC 2.69 L (4.50-5.90) M/uL Hgb 8.2 L (13.0-17.0) g/dL Hct 24.7 L (38.0-50.0) % MCV 91.8 (80.0-98.0) fL MCH 30.5 (27.0-32.0) pg MCHC 33.2 (31.0-37.0) g/dL RDW Std Deviation 50.6 (28.0-62.0) fl RDW Coeff of Pura 15 (11.0-15.0) % Plt Count 154 (150-400) K/uL MPV 8.90 (7.40-12.00) fL Neut % (Auto) 65.5 (48.0-80.0) % Lymph % (Auto) 23.8 (16.0-40.0) % Woods % (Auto) 8.6 (0.0-15.0) % Eos % (Auto) 2.0 (0.0-7.0) % Baso % (Auto) 0.1 (0.0-1.5) % Neut # (Auto) 5.0 (1.4-5.7) K/uL Lymph # (Auto) 1.8 (0.6-2.4) K/uL Woods # (Auto) 0.7 (0.0-0.8) K/uL Eos # (Auto) 0.2 (0.0-0.7) K/uL Baso # (Auto) 0.0 (0.0-0.1) K/uL Nucleated RBC % 0.0 /100WBC Nucleated RBCs # 0 K/uL Sodium 136 (136-146) mmol/L Potassium 4.2 (3.5-5.1) mmol/L Chloride 109 (98-110) mmol/L Carbon Dioxide 18 L (21-31) mmol/L BUN 59 H (6.0-23.0) mg/dL Creatinine 2.3 H (0.6-1.5) mg/dL Est Cr Clr Drug Dosing 21.14 mL/min Estimated GFR (MDRD) 26.9 ml/min Glucose 106 (60-110) mg/dL POC Glucose 165 H (60-110) mg/dL Calcium 8.5 L (8.8-10.8) mg/dL Blood Type Antibody Screen Crossmatch 06/27/17 06/27/17 Range/Units 05:39 05:59 WBC (4.0-11.0) K/uL RBC (4.50-5.90) M/uL Hgb (13.0-17.0) g/dL Hct (38.0-50.0) % MCV (80.0-98.0) fL MCH (27.0-32.0) pg MCHC (31.0-37.0) g/dL RDW Std Deviation (28.0-62.0) fl RDW Coeff of Pura (11.0-15.0) % Plt Count (150-400) K/uL MPV (7.40-12.00) fL Neut % (Auto) (48.0-80.0) % Lymph % (Auto) (16.0-40.0) % Woods % (Auto) (0.0-15.0) % Eos % (Auto) (0.0-7.0) % Baso % (Auto) (0.0-1.5) % Neut # (Auto) (1.4-5.7) K/uL Lymph # (Auto) (0.6-2.4) K/uL Woods # (Auto) (0.0-0.8) K/uL Eos # (Auto) (0.0-0.7) K/uL Baso # (Auto) (0.0-0.1) K/uL Nucleated RBC % /100WBC Nucleated RBCs # K/uL Sodium (136-146) mmol/L Potassium (3.5-5.1) mmol/L Chloride (98-110) mmol/L Carbon Dioxide (21-31) mmol/L BUN (6.0-23.0) mg/dL Creatinine (0.6-1.5) mg/dL Est Cr Clr Drug Dosing mL/min Estimated GFR (MDRD) ml/min Glucose (60-110) mg/dL POC Glucose 118 H (60-110) mg/dL Calcium (8.8-10.8) mg/dL Blood Type A POSITIVE Antibody Screen NEGATIVE Crossmatch See Detail Moiz Results Last 24 Hours: Microbiology 06/25/17 15:45 Aerobic Blood Culture - Preliminary Blood - Venous NO GROWTH AFTER 1 DAY Anaerobic Blood Culture - Preliminary NO GROWTH AFTER 1 DAY 06/25/17 16:03 Aerobic Blood Culture - Preliminary Blood - Venous - Lab Draw NO GROWTH AFTER 1 DAY Anaerobic Blood Culture - Preliminary NO GROWTH AFTER 1 DAY Med Orders - Current: Current Medications Acetaminophen (Tylenol) 650 mg PO Q4H PRN PRN Reason: Pain (Mild 1-3)/fever Last Admin: 06/26/17 23:31 Dose: 650 mg Albuterol (Proventil Neb Soln) 2.5 mg NEB Q2H PRN PRN Reason: Shortness Of Breath/wheezing Albuterol/Ipratropium (Duoneb 3.0-0.5 Mg/3 Ml) 3 ml NEB Q6HRRT PRN PRN Reason: SOB/wheezing Amlodipine Besylate (Norvasc) 5 mg PO 2100 [facility] Last Admin: 06/26/17 23:25 Dose: 5 mg Atorvastatin Calcium (Lipitor) 40 mg PO 2100 [facility] Last Admin: 06/26/17 23:25 Dose: 40 mg Levofloxacin/Dextrose 750 mg/ (Premix) 150 mls @ 100 mls/hr IV Q48H [facility] Last Admin: 06/25/17 17:06 Dose: 100 mls/hr Sodium Chloride (Normal Saline) 1,000 mls @ 100 mls/hr IV ASDIRECTED [facility] Last Admin: 06/27/17 05:46 Dose: 100 mls/hr Lactated Ringer's (Ringers, Lactated) 500 mls @ 999 mls/hr IV ASDIRECTED [facility] Insulin Aspart (Novolog) 0 unit SUBCUT TIDAC [facility] PRN Reason: Protocol Last Admin: 06/27/17 06:52 Dose: Not Given Levothyroxine Sodium (Synthroid) 50 mcg PO ACBREAKFAST [facility] Last Admin: 06/27/17 06:56 Dose: 50 mcg Ondansetron HCl (Zofran) 4 mg IVPUSH Q4H PRN PRN Reason: Nausea Oxycodone HCl (Oxycodone) 5 mg PO Q6H PRN PRN Reason: pain Last Admin: 06/27/17 00:56 Dose: 5 mg Sertraline HCl (Zoloft) 25 mg PO DAILY [facility] Last Admin: 06/27/17 09:38 Dose: 25 mg Discontinued Medications Albuterol (Proventil Neb Soln) 5 mg INH Q4H PRN PRN Reason: Wheezing Atorvastatin Calcium (Lipitor) 40 mg PO Q24H [facility] Last Admin: 06/25/17 18:16 Dose: Not Given Calcium Carbonate/Glycine (Tums) 1,000 mg PO ONETIME ONE Stop: 06/26/17 07:18 Last Admin: 06/26/17 08:28 Dose: 1,000 mg Calcium Carbonate/Glycine (Tums) 1,000 mg PO ONETIME ONE Stop: 06/26/17 19:46 Last Admin: 06/26/17 21:52 Dose: Not Given Calcium Carbonate/Glycine (Tums) 750 mg PO ONETIME ONE Stop: 06/26/17 21:03 Last Admin: 06/26/17 21:52 Dose: 750 mg Calcium Carbonate/Glycine (Tums) 1,000 mg PO ONETIME ONE Stop: 06/27/17 07:26 Last Admin: 06/27/17 09:38 Dose: 1,000 mg Sodium Chloride (Normal Saline) 500 mls @ 125 mls/hr IV .BOLUS [facility] Last Admin: 06/25/17 13:58 Dose: 125 mls/hr Ciprofloxacin/Dextrose 400 mg/ (Premix) 200 mls @ 200 mls/hr IV Q12H [facility] Last Admin: 06/25/17 17:40 Dose: Not Given Lactated Ringer's (Ringers, Lactated) 500 mls @ 999 mls/hr IV .BOLUS ONE Stop: 06/26/17 07:51 Last Admin: 06/26/17 08:29 Dose: 999 mls/hr - Exam Quality Assessment: DVT Prophylaxis General: Alert, Cooperative, No Acute Distress HEENT: Pupils Equal, Pupils Reactive, EOMI, Mucous Membr. Moist/[place] Neck: Supple, Trachea Midline Lungs: Clear to Auscultation, Normal Respiratory Effort Cardiovascular: Regular Rate, Regular Rhythm GI/Abdominal Exam: Normal Bowel Sounds, Soft, Non-Tender, No Organomegaly, No Distention (Male) Exam: Deferred Back Exam: Normal Inspection Extremities: Normal Inspection, Non-Tender, No Pedal Edema, Normal Capillary Refill Peripheral Pulses: 2+: Radial (L), Radial (R), Posterior Tibial (L), Posterior Tibial (R), Dorsalis Pedis (L), Dorsalis Pedis (R) Skin: Warm, Dry, Intact Neurological: No New Focal Deficit Psy/Mental Status: Alert, Normal Affect, Normal Mood - Problem List & Annotations (1) Acute on chronic renal insufficiency SNOMED Code(s): 370789059 Code(s): N28.9 - DISORDER OF KIDNEY AND URETER, UNSPECIFIED; N18.9 - CHRONIC KIDNEY DISEASE, UNSPECIFIED Status: Acute Priority: High Current Visit: Yes (2) DM type 2 (diabetes mellitus, type 2) SNOMED Code(s): 39066388 Code(s): E11.9 - TYPE 2 DIABETES MELLITUS WITHOUT COMPLICATIONS Status: Chronic Priority: Medium Current Visit: Yes Qualifiers: Diabetes mellitus complication status: without complication Diabetes mellitus oil heaterman insulin use: without oil heaterman use Qualified Code(s): E11.9 - Type 2 diabetes mellitus without complications (3) Hematuria SNOMED Code(s): 81781882 Code(s): R31.9 - HEMATURIA, UNSPECIFIED Status: Acute Priority: High Current Visit: Yes Qualifiers: Hematuria type: gross Qualified Code(s): R31.0 - Gross hematuria (4) Hypothyroidism SNOMED Code(s): 12521310 Code(s): E03.9 - HYPOTHYROIDISM, UNSPECIFIED Status: Chronic Priority: Medium Current Visit: Yes Qualifiers: Hypothyroidism type: unspecified Qualified Code(s): E03.9 - Hypothyroidism , unspecified (5) UTI, Urinary tract infectious disease SNOMED Code(s): 55541749 Code(s): N39.0 - URINARY TRACT INFECTION, SITE NOT SPECIFIED Status: Acute Priority: High Current Visit: Yes - Problem List Review Problem List Initiated/Reviewed/Updated: Yes - My Orders Last 24 Hours: My Active Orders 06/26/17 10:03 Code Status [Resuscitation Status] Routine 06/26/17 10:04 PT Evaluation and Treatment [CONS] Routine 06/26/17 19:45 Lactated Ringers [Ringers, Lactated] 500 ml IV ASDIRECTED 06/27/17 00:40 oxyCODONE 5 mg PO Q6H PRN 06/27/17 05:39 RED BLOOD CELLS LP [BBK] Stat TYPE AND SCREEN [BBK] Stat 06/27/17 07:25 Transfuse Red Blood Cells [COMM] Stat - Plan Plan:: 89 year old male admitted 06/25/17 with gross hematuria, UTI and suspected community acquired pneumonia with pmh of chronic renal insufficiency, htn, DMII , and epmhysema. 1. Hematuria: Clots flushed last night with some clearing of catheter. Hgb down from 9.4 to 8.2 with cont. bleeding. Will transfuse 2 units pRBC's this am. Did call and talk with Dr. Zaragoza, urologist Lisset Almazan, and made her aware of patient and current status. She recommended watching bleeding as it may be somewhat resolving on it's own. If continued gross bleeding she will accept for transfer but currently now she would not take to surgery and just watch. Cont. PRN irrigation for hematuria. Hold ASA and pharmacologic VTE measures for now. Note: Review of outpatient chart, patient had TURP in 2000. In 2016 he had hematuria and Trina was consulted. Abd CT at that time suggested possible hemorrhagic cyst to L kidney, no other findings to renal system or bladder. Cystoscopy was completed by Dr Mena, with no significant findings, hematuria had not returned until now. 2. UTI: UC mixed tristen. Cont. [id number] IV Q48hr and monitor 3. Suspected CAP: R basilar atelectasis vs consolidation. Levaquin as above. 4. SANTANA on chronic renal insufficiency: Cr improved from 2.4 to 2.3 today will bolus 500 LR this am again. Baseline Cr appears to be 1.5-1.7. Cont. to monitor 5. HTN: Continue Norvasc 6. DM type 2: ADA diet, diet controlled. Novolog SSI low dose. 7. Emphysema: Stable, continue breathing treatments. VTE prophylaxis: SCDs and ambulation. Dispo: 1-2 days
[2017-06-27] MEDS ORDERED: Lactated Ringers 500 ML IV SCH (11:45)
[2017-06-27] MEDS: Levofloxacin/Dextrose 5%-Water 750 MG in Premix Bag 1 BAG IV SCH (16:54)
[2017-06-27] MEDS: amLODIPine 5 MG Tab PO SCH (21:36)
[2017-06-27] MEDS: atorvaSTATin 40 MG Tab PO SCH (21:36)
[2017-06-28] MEDS: Insulin Aspart 100 Units/ML 3 ML Pen SUBCUT SCH ×3 (06:59→18:35)
[2017-06-28] MEDS: Levothyroxine 50 MCG Tab PO SCH (07:00)
[2017-06-28] MEDS: Sertraline 25 MG Tab PO SCH (08:14)
--- NOTE | 2017-06-28 08:50 | CT ---
EXAM DATE: 06/25/17 PATIENT'S AGE: 89 Patient: CLEMENTE PIMENTEL Facility: [place], [place] Site . Site : [id number] Study: CT Abdomen/Pelvis WO CONT [id number]/[id number] 7:10:46 PM Ordering Physician: Ariel Kaur Final Report: INDICATION: Hematuria. Possible hemorrhagic renal cyst. CT ABDOMEN AND PELVIS WITHOUT CONTRAST TECHNIQUE: Multidetector CT imaging was performed through the abdomen and pelvis without intravenous contrast administration. Coronal and sagittal reconstructions were generated. COMPARISON: 01/23/2016 CT abdomen and pelvis. FINDINGS: The exam is limited by motion. Images were repeated. Lower chest: 4-5 millimeter left lower lobe lung nodule. Moderate-sized area of consolidation in the basilar portion of the right lower lobe, significantly larger than the atelectasis here on the prior exam, with new small right pleural effusion. Liver: Stable 1.8 centimeters liver cyst just above the gallbladder fossa. Gallbladder and bile ducts: Status post cholecystectomy. No biliary dilation identified. Pancreas: Unremarkable. Spleen: Normal. Adrenals: No nodules or masses. Kidneys, ureters, and urinary bladder: No urinary tract stones identified. Multiple bilateral renal cortical cysts are again seen. A 2 centimeter hyperdense cyst at the upper pole of the left kidney does not appear significantly changed from before. A 1 centimeter hyperdense cyst of the left kidney on image 63 of series 301 was questionably present before. No hydronephrosis. Incompletely distended urinary bladder containing hyperdensity consistent with hemorrhage. A Carroll catheter extends into the urinary bladder appears Gastrointestinal tract: Normal caliber small bowel without obvious wall thickening or obstruction. Status post right hemicolectomy, as before. Several sigmoid colon diverticula without evidence of diverticulitis. Vascular structures: Normal caliber abdominal aorta. Moderate aortoiliac atherosclerotic calcifications. Coronary artery calcifications are also present. Peritoneum: Mild fat stranding in the left pericolic gutter, etiology uncertain. No free air, abscess, or significant free fluid. Lymph nodes: No pathologically enlarged nodes identified. Reproductive organs: Marked prostatomegaly, similar to the previous exam. Bones: Multilevel spondylosis. 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 IMPRESSION: 1. Hyperdensity within the urinary bladder consistent with hemorrhage, etiology uncertain. Urology referral is suggested. 2. Marked prostatomegaly. 3. Left renal hyperdense cysts and multiple bilateral renal simple cortical cysts. 4. Nonspecific mild fat stranding in the left pericolic gutter, etiology uncertain. 5. Moderate-sized area of lung consolidation in the basilar portion of the right lower lobe with small right pleural effusion. Pneumonia is not excluded. 6. Nonacute additional findings as detailed above. OBINNA GIRON MD [employer] Dictated by Jericho Giron MD @ 06/25/2017 7:46:58 PM Dictated by: Jericho Giron MD @ 06/25/2017 19:47:23 (Electronic Signature) Report Signed by Proxy. [facility]
[2017-06-28] MEDS ORDERED: Belladonna Alkaloids/Opium 16.2-30 MG Supp RECTAL PRN (08:52)
--- NOTE | 2017-06-28 08:55 | PCM.PN ---
- General Info Date of Service: 06/28/17 Admission Dx/Problem (Free Text): hematuria Subjective Update: Tired this morning, denies any chest pain, abdominal pain or SOB. No concerns Family, daughter and , there for second rounds. Agree with staying and monitoring today. Functional Status: Reports: Pain Controlled, Tolerating Diet, Ambulating, Urinating - Review of Systems General: Reports: No Symptoms. Denies: Fever, Weakness, Fatigue HEENT: Reports: No Symptoms. Denies: Headaches, Sore Throat, Rhinitis Pulmonary: Reports: No Symptoms. Denies: Shortness of Breath, Pleuritic Chest Pain, Cough, Sputum Cardiovascular: Reports: No Symptoms. Denies: Chest Pain, Palpitations, Edema Gastrointestinal: Reports: No Symptoms. Denies: Abdominal Pain, Nausea, Vomiting Genitourinary: Reports: No Symptoms. Denies: Dysuria, Frequency, Burning Neurological: Reports: No Symptoms. Denies: Confusion Psychiatric: Reports: No Symptoms. Denies: Confusion - Patient Data Vitals - Most Recent: Last Vital Signs Temp 98.0 F 06/28/17 08:00 Pulse 77 06/28/17 08:00 Resp 20 06/28/17 08:00 BP 126/69 06/28/17 08:00 Pulse Ox 94 L 06/28/17 08:00 Weight - Most Recent: 77.7 kg I&O - Last 24 Hours: Intake & Output 06/27/17 06/28/17 06/28/17 22:59 06:59 14:59 Intake Total 3644 1120 Output Total 1700 3800 Balance 1944 -2680 Lab Results Last 24 Hours: Laboratory Results - last 24 hr 06/27/17 06/27/17 06/27/17 Range/Units 05:39 11:28 16:45 WBC (4.0-11.0) K/uL RBC (4.50-5.90) M/uL Hgb (13.0-17.0) g/dL Hct (38.0-50.0) % MCV (80.0-98.0) fL MCH (27.0-32.0) pg MCHC (31.0-37.0) g/dL RDW Std Deviation (28.0-62.0) fl RDW Coeff of Pura (11.0-15.0) % Plt Count (150-400) K/uL MPV (7.40-12.00) fL Neut % (Auto) (48.0-80.0) % Lymph % (Auto) (16.0-40.0) % Towner % (Auto) (0.0-15.0) % Eos % (Auto) (0.0-7.0) % Baso % (Auto) (0.0-1.5) % Neut # (Auto) (1.4-5.7) K/uL Lymph # (Auto) (0.6-2.4) K/uL Towner # (Auto) (0.0-0.8) K/uL Eos # (Auto) (0.0-0.7) K/uL Baso # (Auto) (0.0-0.1) K/uL Nucleated RBC % /100WBC Nucleated RBCs # K/uL Sodium (136-146) mmol/L Potassium (3.5-5.1) mmol/L Chloride (98-110) mmol/L Carbon Dioxide (21-31) mmol/L BUN (6.0-23.0) mg/dL Creatinine (0.6-1.5) mg/dL Est Cr Clr Drug Dosing mL/min Estimated GFR (MDRD) ml/min Glucose (60-110) mg/dL POC Glucose 132 H 128 H (60-110) mg/dL Calcium (8.8-10.8) mg/dL Blood Type A POSITIVE Antibody Screen NEGATIVE Crossmatch See Detail 06/27/17 06/27/17 06/28/17 Range/Units 19:13 21:13 05:40 WBC 6.95 (4.0-11.0) K/uL RBC 3.18 L (4.50-5.90) M/uL Hgb 11.1 L 9.8 L (13.0-17.0) g/dL Hct 31.6 L 28.4 L (38.0-50.0) % MCV 89.3 (80.0-98.0) fL MCH 30.8 (27.0-32.0) pg MCHC 34.5 (31.0-37.0) g/dL RDW Std Deviation 50.7 (28.0-62.0) fl RDW Coeff of Pura 16 H (11.0-15.0) % Plt Count 145 L (150-400) K/uL MPV 9.20 (7.40-12.00) fL Neut % (Auto) 69.5 (48.0-80.0) % Lymph % (Auto) 17.7 (16.0-40.0) % Towner % (Auto) 11.1 (0.0-15.0) % Eos % (Auto) 1.6 (0.0-7.0) % Baso % (Auto) 0.1 (0.0-1.5) % Neut # (Auto) 4.8 (1.4-5.7) K/uL Lymph # (Auto) 1.2 (0.6-2.4) K/uL Towner # (Auto) 0.8 (0.0-0.8) K/uL Eos # (Auto) 0.1 (0.0-0.7) K/uL Baso # (Auto) 0.0 (0.0-0.1) K/uL Nucleated RBC % 0.0 /100WBC Nucleated RBCs # 0 K/uL Sodium (136-146) mmol/L Potassium (3.5-5.1) mmol/L Chloride (98-110) mmol/L Carbon Dioxide (21-31) mmol/L BUN (6.0-23.0) mg/dL Creatinine (0.6-1.5) mg/dL Est Cr Clr Drug Dosing mL/min Estimated GFR (MDRD) ml/min Glucose (60-110) mg/dL POC Glucose 102 (60-110) mg/dL Calcium (8.8-10.8) mg/dL Blood Type Antibody Screen Crossmatch 06/28/17 Range/Units 05:40 WBC (4.0-11.0) K/uL RBC (4.50-5.90) M/uL Hgb (13.0-17.0) g/dL Hct (38.0-50.0) % MCV (80.0-98.0) fL MCH (27.0-32.0) pg MCHC (31.0-37.0) g/dL RDW Std Deviation (28.0-62.0) fl RDW Coeff of Pura (11.0-15.0) % Plt Count (150-400) K/uL MPV (7.40-12.00) fL Neut % (Auto) (48.0-80.0) % Lymph % (Auto) (16.0-40.0) % Towner % (Auto) (0.0-15.0) % Eos % (Auto) (0.0-7.0) % Baso % (Auto) (0.0-1.5) % Neut # (Auto) (1.4-5.7) K/uL Lymph # (Auto) (0.6-2.4) K/uL Towner # (Auto) (0.0-0.8) K/uL Eos # (Auto) (0.0-0.7) K/uL Baso # (Auto) (0.0-0.1) K/uL Nucleated RBC % /100WBC Nucleated RBCs # K/uL Sodium 137 (136-146) mmol/L Potassium 4.4 (3.5-5.1) mmol/L Chloride 111 H (98-110) mmol/L Carbon Dioxide 20 L (21-31) mmol/L BUN 56 H (6.0-23.0) mg/dL Creatinine 2.2 H (0.6-1.5) mg/dL Est Cr Clr Drug Dosing 22.10 mL/min Estimated GFR (MDRD) 28.3 ml/min Glucose 104 (60-110) mg/dL POC Glucose (60-110) mg/dL Calcium 8.0 L (8.8-10.8) mg/dL Blood Type Antibody Screen Crossmatch Moiz Results Last 24 Hours: Microbiology 06/28/17 00:15 Gram Stain - Preliminary Sputum - Expectorated 06/25/17 15:45 Aerobic Blood Culture - Preliminary Blood - Venous NO GROWTH AFTER 2 DAYS Anaerobic Blood Culture - Preliminary NO GROWTH AFTER 2 DAYS 06/25/17 16:03 Aerobic Blood Culture - Preliminary Blood - Venous - Lab Draw NO GROWTH AFTER 2 DAYS Anaerobic Blood Culture - Preliminary NO GROWTH AFTER 2 DAYS Med Orders - Current: Current Medications Acetaminophen (Tylenol) 650 mg PO Q4H PRN PRN Reason: Pain (Mild 1-3)/fever Last Admin: 06/26/17 23:31 Dose: 650 mg Albuterol (Proventil Neb Soln) 2.5 mg NEB Q2H PRN PRN Reason: Shortness Of Breath/wheezing Albuterol/Ipratropium (Duoneb 3.0-0.5 Mg/3 Ml) 3 ml NEB Q6HRRT PRN PRN Reason: SOB/wheezing Amlodipine Besylate (Norvasc) 5 mg PO 2100 [facility] Last Admin: 06/27/17 21:36 Dose: 5 mg Atorvastatin Calcium (Lipitor) 40 mg PO 2100 [facility] Last Admin: 06/27/17 21:36 Dose: 40 mg Belladonna Alkaloids/Opium (B & O Supprettes No. 15a) 1 supp RECTAL Q6H PRN PRN Reason: bladder spasms Levofloxacin/Dextrose 750 mg/ (Premix) 150 mls @ 100 mls/hr IV Q48H [facility] Last Admin: 06/27/17 16:54 Dose: 100 mls/hr Insulin Aspart (Novolog) 0 unit SUBCUT TIDAC TED PRN Reason: Protocol Last Admin: 06/28/17 06:59 Dose: Not Given Levothyroxine Sodium (Synthroid) 50 mcg PO ACBREAKFAST [facility] Last Admin: 06/28/17 07:00 Dose: Not Given Ondansetron HCl (Zofran) 4 mg IVPUSH Q4H PRN PRN Reason: Nausea Oxycodone HCl (Oxycodone) 5 mg PO Q6H PRN PRN Reason: pain Last Admin: 06/27/17 00:56 Dose: 5 mg Sertraline HCl (Zoloft) 25 mg PO DAILY [facility] Last Admin: 06/28/17 08:14 Dose: 25 mg Discontinued Medications Albuterol (Proventil Neb Soln) 5 mg INH Q4H PRN PRN Reason: Wheezing Atorvastatin Calcium (Lipitor) 40 mg PO Q24H [facility] Last Admin: 06/25/17 18:16 Dose: Not Given Calcium Carbonate/Glycine (Tums) 1,000 mg PO ONETIME ONE Stop: 06/26/17 07:18 Last Admin: 06/26/17 08:28 Dose: 1,000 mg Calcium Carbonate/Glycine (Tums) 1,000 mg PO ONETIME ONE Stop: 06/26/17 19:46 Last Admin: 06/26/17 21:52 Dose: Not Given Calcium Carbonate/Glycine (Tums) 750 mg PO ONETIME ONE Stop: 06/26/17 21:03 Last Admin: 06/26/17 21:52 Dose: 750 mg Calcium Carbonate/Glycine (Tums) 1,000 mg PO ONETIME ONE Stop: 06/27/17 07:26 Last Admin: 06/27/17 09:38 Dose: 1,000 mg Sodium Chloride (Normal Saline) 500 mls @ 125 mls/hr IV .BOLUS [facility] Last Admin: 06/25/17 13:58 Dose: 125 mls/hr Ciprofloxacin/Dextrose 400 mg/ (Premix) 200 mls @ 200 mls/hr IV Q12H [facility] Last Admin: 06/25/17 17:40 Dose: Not Given Sodium Chloride (Normal Saline) 1,000 mls @ 100 mls/hr IV ASDIRECTED [facility] Last Admin: 06/27/17 23:38 Dose: 100 mls/hr Lactated Ringer's (Ringers, Lactated) 500 mls @ 999 mls/hr IV .BOLUS ONE Stop: 06/26/17 07:51 Last Admin: 06/26/17 08:29 Dose: 999 mls/hr Lactated Ringer's (Ringers, Lactated) 500 mls @ 999 mls/hr IV ASDIRECTED [facility] Last Admin: 06/27/17 22:32 Dose: 999 mls/hr Lactated Ringer's (Ringers, Lactated) 500 mls @ 999 mls/hr IV ASDIRECTED [facility] Last Admin: 06/27/17 22:32 Dose: 999 mls/hr - Exam General: Alert, Oriented, Cooperative, No Acute Distress, Other (reports he is tired, easily falls back asleep. Had sleeping pill last night. ) Neck: Supple Lungs: Clear to Auscultation, Normal Respiratory Effort Cardiovascular: Regular Rate, Regular Rhythm GI/Abdominal Exam: Normal Bowel Sounds, Soft, Non-Tender, No Organomegaly, No Distention, No Abnormal Bruit, No Mass, Pelvis Stable, Other (Bowen remains intact, no gross hematuria. Urine peach in color with no noted clots. draining well.) Extremities: Normal Inspection, Normal Range of Motion, Non-Tender, No Pedal Edema, Normal Capillary Refill Neurological: No New Focal Deficit Psy/Mental Status: Alert, Normal Affect, Normal Mood - Problem List & Annotations (1) Hematuria SNOMED Code(s): 65966369 Code(s): R31.9 - HEMATURIA, UNSPECIFIED Status: Acute Priority: High Current Visit: Yes Qualifiers: Hematuria type: gross Qualified Code(s): R31.0 - Gross hematuria (2) Acute on chronic renal insufficiency SNOMED Code(s): 820898307 Code(s): N28.9 - DISORDER OF KIDNEY AND URETER, UNSPECIFIED; N18.9 - CHRONIC KIDNEY DISEASE, UNSPECIFIED Status: Acute Priority: High Current Visit: Yes (3) UTI, Urinary tract infectious disease SNOMED Code(s): 64095050 Code(s): N39.0 - URINARY TRACT INFECTION, SITE NOT SPECIFIED Status: Acute Priority: High Current Visit: Yes (4) TIA (transient ischemic attack) SNOMED Code(s): 815950239 Code(s): G45.9 - TRANSIENT CEREBRAL ISCHEMIC ATTACK, UNSPECIFIED Status: Chronic Current Visit: No Qualifiers: Transient cerebral ischemia type: unspecified Qualified Code(s): G45.9 - Transient cerebral ischemic attack, unspecified (5) Unsteady gait SNOMED Code(s): 96207385 Code(s): R26.81 - UNSTEADINESS ON FEET Status: Chronic Current Visit: No (6) BPH (benign prostatic hyperplasia) SNOMED Code(s): 710159727 Code(s): N40.0 - BENIGN PROSTATIC HYPERPLASIA WITHOUT LOWER URINRY TRACT SYMP Status: Chronic Current Visit: No (7) Dementia SNOMED Code(s): 28897475 Code(s): F03.90 - UNSPECIFIED DEMENTIA WITHOUT BEHAVIORAL DISTURBANCE Status: Chronic Current Visit: No (8) Emphysema SNOMED Code(s): 14385263 Code(s): J43.9 - EMPHYSEMA, UNSPECIFIED Status: Chronic Current Visit: No (9) HTN (hypertension) SNOMED Code(s): 97820080 Code(s): I10 - ESSENTIAL (PRIMARY) HYPERTENSION Status: Chronic Current Visit: No Qualifiers: Hypertension type: essential hypertension Qualified Code(s): I10 - Essential (primary) hypertension (10) DM type 2 (diabetes mellitus, type 2) SNOMED Code(s): 61441331 Code(s): E11.9 - TYPE 2 DIABETES MELLITUS WITHOUT COMPLICATIONS Status: Chronic Priority: Medium Current Visit: Yes Qualifiers: Diabetes mellitus complication status: without complication Diabetes mellitus usp insulin use: without usp use Qualified Code(s): E11.9 - Type 2 diabetes mellitus without complications (11) Hypothyroidism SNOMED Code(s): 40540930 Code(s): E03.9 - HYPOTHYROIDISM, UNSPECIFIED Status: Chronic Priority: Medium Current Visit: Yes Qualifiers: Hypothyroidism type: unspecified Qualified Code(s): E03.9 - Hypothyroidism , unspecified - Problem List Review Problem List Initiated/Reviewed/Updated: Yes - My Orders Last 24 Hours: My Active Orders 06/28/17 08:52 Belladonna/Opium [B & O Supprettes No. 15A] 1 supp RECTAL Q6H PRN 06/28/17 08:53 Patient Status [ADT] Stat - Plan Plan:: 89 year old male admitted 06/25/17 with gross hematuria, UTI and suspected community acquired pneumonia with pmh of chronic renal insufficiency, htn, DMII , and epmhysema. 1. Hematuria: Improving, peach colored this am and yellow on second rounds. No further clots noted. Transfused 2 units pRBC's yesterday, Hgb 9.8 this am. Cont. PRN irrigation for retention or bowen not draining. Hold ASA and pharmacologic VTE measures for now. Hold on transferring due to hematuria improving. Follow up arranged with Dr Mena on July 08. Note: Review of outpatient chart, patient had TURP in 2000. In 2015 he had hematuria and Trina was consulted. Abd CT at that time suggested possible hemorrhagic cyst to L kidney, no other findings to renal system or bladder. Cystoscopy was completed by Dr Mena, with no significant findings, hematuria had not returned until now. 2. UTI: UC mixed tristen. Cont. [id number] IV Q48hr and monitor 3. Suspected CAP: R basilar atelectasis vs consolidation. Levaquin as above. 4. SANTANA on chronic renal insufficiency: Cr improved from 2.2 and BUN 56. Stop IVFs and bolus PRN. Baseline Cr appears to be 1.5-2.0 and BUN 30-50s. Cont. to monitor 5. HTN: Continue Norvasc 6. DM type 2: ADA diet, diet controlled. Novolog SSI low dose. 7. Emphysema: Stable, continue breathing treatments. VTE prophylaxis: SCDs and ambulation. Dispo: make inpatient today, dispo in 1-2 days
[2017-06-28] MEDS: amLODIPine 5 MG Tab PO SCH (21:00)
[2017-06-28] MEDS: atorvaSTATin 40 MG Tab PO SCH (21:00)
[2017-06-29 06:20] VITALS: BP 154/70
[2017-06-29] MEDS: Insulin Aspart 100 Units/ML 3 ML Pen SUBCUT SCH (08:23)
[2017-06-29] MEDS: Sertraline 25 MG Tab PO SCH (08:24)
[2017-06-29] MEDS: Levothyroxine 50 MCG Tab PO SCH (08:24)
--- NOTE | 2017-06-29 09:19 | PCM.DCSUM1 ---
Discharge Summary - Hospital Course Brief History: This 89 year old male with pmh of HTN, hypothyroidism, DM, emphysema recent TIA presents today to ED with concerns a hematuria. Him and his report it started last evening and has continued. He denies any fevers or abdominal pain. They say this happened a few years ago and they saw Dr Mena but not sure what it was. He denies burning with urination. He is incontinent at night and uses a brief, but then during the day voids in the toilet. He denies neck pain, URI symptoms. He has persistent cough with hx of emphysema per and normally has daily cough and uses nebulizers at home, no changes. He denies black or bloody BMs. His reports things are going well at home, they have Home Health for PT/OT as well. She reports he has good days and bad days. In the ED no leukocytosis noted, hgb 11.7 hct 35.0, Na 130, bicarb 18, BUN 52, Cr 2.4, baseline is around 1.5-1.7. UA revealed trace leukocyte esterase, WBC 1-2, large blood and too numerous to count RBC, nitrite positive. Abd US pending. CXR revealed R basilar atelectasis/consolidation. UC and BC obtained and pending. He will be admitted observation for hematuria and UTI. - Discharge Data Discharge Date: 06/29/17 Discharge Disposition: Home, W Home Health Agency 06 Condition: Good - Discharge Diagnosis/Problem(s) (1) Hematuria SNOMED Code(s): 63430615 ICD Code: R31.9 - HEMATURIA, UNSPECIFIED Status: Resolved Priority: High Current Visit: Yes Qualifiers: Hematuria type: gross Qualified Code(s): R31.0 - Gross hematuria (2) Acute on chronic renal insufficiency SNOMED Code(s): 096962724 ICD Code: N28.9 - DISORDER OF KIDNEY AND URETER, UNSPECIFIED; N18.9 - CHRONIC KIDNEY DISEASE, UNSPECIFIED Status: Acute Priority: High Current Visit: Yes (3) UTI, Urinary tract infectious disease SNOMED Code(s): 65887066 ICD Code: N39.0 - URINARY TRACT INFECTION, SITE NOT SPECIFIED Status: Acute Priority: High Current Visit: Yes (4) TIA (transient ischemic attack) SNOMED Code(s): 059608709 ICD Code: G45.9 - TRANSIENT CEREBRAL ISCHEMIC ATTACK, UNSPECIFIED Status: Chronic Current Visit: No Qualifiers: Transient cerebral ischemia type: unspecified Qualified Code(s): G45.9 - Transient cerebral ischemic attack, unspecified (5) Unsteady gait SNOMED Code(s): 33307547 ICD Code: R26.81 - UNSTEADINESS ON FEET Status: Chronic Current Visit: No (6) BPH (benign prostatic hyperplasia) SNOMED Code(s): 025374204 ICD Code: N40.0 - BENIGN PROSTATIC HYPERPLASIA WITHOUT LOWER URINRY TRACT SYMP Status: Chronic Current Visit: No (7) Dementia SNOMED Code(s): 51792226 ICD Code: F03.90 - UNSPECIFIED DEMENTIA WITHOUT BEHAVIORAL DISTURBANCE Status: Chronic Current Visit: No (8) Emphysema SNOMED Code(s): 11472416 ICD Code: J43.9 - EMPHYSEMA, UNSPECIFIED Status: Chronic Current Visit: No (9) HTN (hypertension) SNOMED Code(s): 69182495 ICD Code: I10 - ESSENTIAL (PRIMARY) HYPERTENSION Status: Chronic Current Visit: No Qualifiers: Hypertension type: essential hypertension Qualified Code(s): I10 - Essential (primary) hypertension (10) DM type 2 (diabetes mellitus, type 2) SNOMED Code(s): 02225790 ICD Code: E11.9 - TYPE 2 DIABETES MELLITUS WITHOUT COMPLICATIONS Status: Chronic Priority: Medium Current Visit: Yes Qualifiers: Diabetes mellitus complication status: without complication Diabetes mellitus termite control technician insulin use: without alf use Qualified Code(s): E11.9 - Type 2 diabetes mellitus without complications (11) Hypothyroidism SNOMED Code(s): 64241565 ICD Code: E03.9 - HYPOTHYROIDISM, UNSPECIFIED Status: Chronic Priority: Medium Current Visit: Yes Qualifiers: Hypothyroidism type: unspecified Qualified Code(s): E03.9 - Hypothyroidism , unspecified - Patient Instructions Diet: Heart Healthy Diet, Diabetic Diet Activity: As Tolerated, No Strenuous Activities Showering/Bathing: May Shower Notify Provider of: Fever, Increased Pain, Swelling and Redness, Drainage, Nausea and/or Vomiting - Discharge Plan Prescriptions/Med Rec: Levofloxacin [Levaquin] 750 mg PO Q48H #2 tab Home Medications: Home Meds Allopurinol [Zyloprim] 100 mg PO DAILY 03/22/17 [History] Levothyroxine Sodium [Levo-T] 50 mcg PO DAILY 03/22/17 [History] Sertraline HCl 25 mg PO DAILY 03/22/17 [History] amLODIPine [Norvasc] 5 mg PO DAILY #30 tablet 03/24/17 [Rx] Albuterol Sulfate 5 mg IH Q4H PRN 05/19/17 [History] Aspirin 81 mg PO DAILY 30 Days #30 tab.chew 05/21/17 [Rx] atorvaSTATin [Lipitor] 40 mg PO Q24H 30 Days #30 tablet 05/21/17 [Rx] Levofloxacin [Levaquin] 750 mg PO Q48H #2 tab 06/29/17 [Rx] Patient Handouts: Urinary Tract Infection, Adult, [id number], Levofloxacin tablets, Hematuria, Adult Referrals: Peng Cisneros MD [Primary Care Provider] - 07/13/17 8:30 am Suma Mena MD [Physician] - 07/08/17 1:30 pm - Discharge Summary/Plan Comment DC Time >30 min.: No Discharge Summary/Plan Comment: Discharge Diagnoses: UTI Suspected CAP Gross Hematuria- resolved Hx TIA HTN DM type 2 BPH Dementia Unsteady gait Hypothyroidism Emphysema Carlos was admitted and bowen was placed to monitor hematuria. After day one, hgb noted to drop to 8 and he was transfused 2 units PRBCs. No urology available in our facility during time of admission, Dr Zaragoza, Urologist from [facility] [place] was contacted, which she recommended continued monitoring over the weekend and if bleeding did not stop she would then accept him for transfer. Abdominal US obtained in ED revealed echogenic renal corticies bilaterally consistent with medical renal disease, possibly thicken heterogenous bladder bella along the posterior aspect of the fundus, but overall not well charactierzed, a neoplastic process could not be excluded, no hydronephrosis. An Abd CT without contrast was obtained, which revealed hyperdensity within the urinary bladder, consistent with hemorrhage, marked prostatomegaly, left renal hyperdense cysts and multiple bilateral renal simple cortical cysts, non- specific mild fat stranding in the left pericolic gutter, moderate sized area of lung consolidation in the basilar right lower lob with small pleural effusion. He was treated with Levaquin for UTI and possible CAP. BC remained negative as well as sputum. UC returned with mixed tristen 10,000-100,000. Early Wednesday morning, day 3 of admission, hematuria started to resolve and by late wednesday urine was nearly yellow. Rare clots were still noted and noted to be clotting off bowen catheter and causing retention. Bowen was removed and patient has been voiding yellow urine with small clots, he is incontinent, which is his baseline. Today BUN 51 and Cr 1.9, which is nearly back to baseline. He will be continued on Levaquin for a total of 5 days for both UTI and suspected CAP. He is doing much better today. He will be discharged home with and daughter. He has appointment arranged with Dr Mena next week to follow up with hematuria. He will be given appointment for his PCP, Dr Cisneros as well. He and family were encouraged to return to ED or clinic if concerns should arise - General Info Date of Service: 06/29/17 Admission Dx/Problem (Free Text: hematuria Subjective Update: Sitting up in chair this morning, reports feeling ok. No chest pain, SOB or abdominal pain. No dysuria noted. No family at bedside on first rounds. Functional Status: Reports: Pain Controlled, Tolerating Diet, Urinating - Review of Systems General: Reports: No Symptoms. Denies: Fever, Fatigue Pulmonary: Reports: No Symptoms. Denies: Shortness of Breath, Cough, Sputum Cardiovascular: Reports: No Symptoms. Denies: Chest Pain, Palpitations, Edema Gastrointestinal: Reports: No Symptoms. Denies: Abdominal Pain, Nausea, Vomiting Genitourinary: Reports: Incontinence. Denies: Dysuria, Frequency Musculoskeletal: Reports: No Symptoms. Denies: Neck Pain Neurological: Reports: No Symptoms. Denies: Confusion Psychiatric: Reports: No Symptoms. Denies: Confusion - Patient Data Vitals - Most Recent: Last Vital Signs Temp 98.3 F 06/29/17 08:00 Pulse 58 L 06/29/17 08:00 Resp 16 06/29/17 08:00 BP 154/70 H 06/29/17 08:00 Pulse Ox 95 06/29/17 08:00 Weight - Most Recent: 77.7 kg I&O - Last 24 hours: Intake & Output 06/28/17 06/29/17 06/29/17 22:59 06:59 14:59 Intake Total 1500 350 Output Total 2300 50 Balance -800 300 Lab Results - Last 24 hrs: Laboratory Results - last 24 hr 06/28/17 06/28/17 06/28/17 Range/Units 11:54 14:17 16:05 WBC (4.0-11.0) K/uL RBC (4.50-5.90) M/uL Hgb 10.0 L (13.0-17.0) g/dL Hct 29.1 L (38.0-50.0) % MCV (80.0-98.0) fL MCH (27.0-32.0) pg MCHC (31.0-37.0) g/dL RDW Std Deviation (28.0-62.0) fl RDW Coeff of Pura (11.0-15.0) % Plt Count (150-400) K/uL MPV (7.40-12.00) fL Neut % (Auto) (48.0-80.0) % Lymph % (Auto) (16.0-40.0) % Routt % (Auto) (0.0-15.0) % Eos % (Auto) (0.0-7.0) % Baso % (Auto) (0.0-1.5) % Neut # (Auto) (1.4-5.7) K/uL Lymph # (Auto) (0.6-2.4) K/uL Routt # (Auto) (0.0-0.8) K/uL Eos # (Auto) (0.0-0.7) K/uL Baso # (Auto) (0.0-0.1) K/uL Nucleated RBC % /100WBC Nucleated RBCs # K/uL Sodium (136-146) mmol/L Potassium (3.5-5.1) mmol/L Chloride (98-110) mmol/L Carbon Dioxide (21-31) mmol/L BUN (6.0-23.0) mg/dL Creatinine (0.6-1.5) mg/dL Est Cr Clr Drug Dosing mL/min Estimated GFR (MDRD) ml/min Glucose (60-110) mg/dL POC Glucose 135 H 116 H (60-110) mg/dL Calcium (8.8-10.8) mg/dL 06/29/17 06/29/17 06/29/17 Range/Units 05:28 05:28 06:10 WBC 5.16 (4.0-11.0) K/uL RBC 3.14 L (4.50-5.90) M/uL Hgb 9.8 L (13.0-17.0) g/dL Hct 28.6 L (38.0-50.0) % MCV 91.1 (80.0-98.0) fL MCH 31.2 (27.0-32.0) pg MCHC 34.3 (31.0-37.0) g/dL RDW Std Deviation 51.9 (28.0-62.0) fl RDW Coeff of Pura 16 H (11.0-15.0) % Plt Count 139 L (150-400) K/uL MPV 8.80 (7.40-12.00) fL Neut % (Auto) 63.9 (48.0-80.0) % Lymph % (Auto) 20.2 (16.0-40.0) % Routt % (Auto) 9.9 (0.0-15.0) % Eos % (Auto) 5.6 (0.0-7.0) % Baso % (Auto) 0.4 (0.0-1.5) % Neut # (Auto) 3.3 (1.4-5.7) K/uL Lymph # (Auto) 1.0 (0.6-2.4) K/uL Routt # (Auto) 0.5 (0.0-0.8) K/uL Eos # (Auto) 0.3 (0.0-0.7) K/uL Baso # (Auto) 0.0 (0.0-0.1) K/uL Nucleated RBC % 0.0 /100WBC Nucleated RBCs # 0 K/uL Sodium 139 (136-146) mmol/L Potassium 4.1 (3.5-5.1) mmol/L Chloride 110 (98-110) mmol/L Carbon Dioxide 22 (21-31) mmol/L BUN 51 H (6.0-23.0) mg/dL Creatinine 1.9 H (0.6-1.5) mg/dL Est Cr Clr Drug Dosing 25.59 mL/min Estimated GFR (MDRD) 33.5 ml/min Glucose 96 (60-110) mg/dL POC Glucose 103 (60-110) mg/dL Calcium 8.3 L (8.8-10.8) mg/dL Med Orders - Current: Current Medications Acetaminophen (Tylenol) 650 mg PO Q4H PRN PRN Reason: Pain (Mild 1-3)/fever Last Admin: 06/26/17 23:31 Dose: 650 mg Albuterol (Proventil Neb Soln) 2.5 mg NEB Q2H PRN PRN Reason: Shortness Of Breath/wheezing Albuterol/Ipratropium (Duoneb 3.0-0.5 Mg/3 Ml) 3 ml NEB Q6HRRT PRN PRN Reason: SOB/wheezing Amlodipine Besylate (Norvasc) 5 mg PO 2100 [facility] Last Admin: 06/28/17 21:00 Dose: 5 mg Atorvastatin Calcium (Lipitor) 40 mg PO 2100 [facility] Last Admin: 06/28/17 21:00 Dose: 40 mg Belladonna Alkaloids/Opium (B & O Supprettes No. 15a) 1 supp RECTAL Q6H PRN PRN Reason: bladder spasms Levofloxacin/Dextrose 750 mg/ (Premix) 150 mls @ 100 mls/hr IV Q48H [facility] Last Admin: 06/27/17 16:54 Dose: 100 mls/hr Insulin Aspart (Novolog) 0 unit SUBCUT TIDAC [facility] PRN Reason: Protocol Last Admin: 06/29/17 08:23 Dose: Not Given Levothyroxine Sodium (Synthroid) 50 mcg PO ACBREAKFAST [facility] Last Admin: 06/29/17 08:24 Dose: 50 mcg Ondansetron HCl (Zofran) 4 mg IVPUSH Q4H PRN PRN Reason: Nausea Sertraline HCl (Zoloft) 25 mg PO DAILY [facility] Last Admin: 06/29/17 08:24 Dose: 25 mg Discontinued Medications Albuterol (Proventil Neb Soln) 5 mg INH Q4H PRN PRN Reason: Wheezing Atorvastatin Calcium (Lipitor) 40 mg PO Q24H [facility] Last Admin: 06/25/17 18:16 Dose: Not Given Calcium Carbonate/Glycine (Tums) 1,000 mg PO ONETIME ONE Stop: 06/26/17 07:18 Last Admin: 06/26/17 08:28 Dose: 1,000 mg Calcium Carbonate/Glycine (Tums) 1,000 mg PO ONETIME ONE Stop: 06/26/17 19:46 Last Admin: 06/26/17 21:52 Dose: Not Given Calcium Carbonate/Glycine (Tums) 750 mg PO ONETIME ONE Stop: 06/26/17 21:03 Last Admin: 06/26/17 21:52 Dose: 750 mg Calcium Carbonate/Glycine (Tums) 1,000 mg PO ONETIME ONE Stop: 06/27/17 07:26 Last Admin: 06/27/17 09:38 Dose: 1,000 mg Sodium Chloride (Normal Saline) 500 mls @ 125 mls/hr IV .BOLUS [facility] Last Admin: 06/25/17 13:58 Dose: 125 mls/hr Ciprofloxacin/Dextrose 400 mg/ (Premix) 200 mls @ 200 mls/hr IV Q12H [facility] Last Admin: 06/25/17 17:40 Dose: Not Given Sodium Chloride (Normal Saline) 1,000 mls @ 100 mls/hr IV ASDIRECTED [facility] Last Admin: 06/27/17 23:38 Dose: 100 mls/hr Lactated Ringer's (Ringers, Lactated) 500 mls @ 999 mls/hr IV .BOLUS ONE Stop: 06/26/17 07:51 Last Admin: 06/26/17 08:29 Dose: 999 mls/hr Lactated Ringer's (Ringers, Lactated) 500 mls @ 999 mls/hr IV ASDIRECTED [facility] Last Admin: 06/27/17 22:32 Dose: 999 mls/hr Lactated Ringer's (Ringers, Lactated) 500 mls @ 999 mls/hr IV ASDIRECTED [facility] Last Admin: 06/27/17 22:32 Dose: 999 mls/hr Oxycodone HCl (Oxycodone) 5 mg PO Q6H PRN PRN Reason: pain Last Admin: 06/27/17 00:56 Dose: 5 mg - Exam General: Reports: Alert, Cooperative, No Acute Distress. Denies: Oriented (at baseline.) Neck: Reports: Supple Lungs: Reports: Clear to Auscultation, Normal Respiratory Effort Cardiovascular: Reports: Regular Rate, Regular Rhythm GI/Abdominal Exam: Normal Bowel Sounds, Soft, Non-Tender, No Organomegaly, No Distention, No Abnormal Bruit, No Mass, Pelvis Stable Wound/Incisions: Reports: Healing Well Neurological: Reports: No New Focal Deficit Psy/Mental Status: Reports: Alert, Normal Affect, Normal Mood *Q Meaningful Use (DIS) - VTE *Q VTE Criteria *Q: - Stroke *Q Stroke Criteria *Q: - AMI *Q AMI Criteria *Q:
[2017-06-29] MEDS ORDERED: Levofloxacin 250 MG Tab PO ONE (10:47)
== END 2017-06-29 11:00 | disposition home health service (06) | DRG 689 ==
LOC: MW.ED 12:11 → MW.MS 15:42 → OBSVTOIN 06-28 08:53 → MW.MS 06-28 14:20
PROVIDERS: ADMIT Family Medicine; ATTEND Family Medicine
PROC: 30233N1 Transfusion of Nonautologous Red Blood Cells into Peripheral Vein, Percutaneous Approach (ICD-10-PCS; principal; 2017-06-27)
DX: N39.0 Urinary tract infection, site not specified (principal); R31.9 Hematuria, unspecified; N40.1 Benign prostatic hyperplasia with lower urinary tract symptoms; N39.498 Other specified urinary incontinence; E78.00 Pure hypercholesterolemia, unspecified; I10 Essential (primary) hypertension; J18.9 Pneumonia, unspecified organism; N28.9 Disorder of kidney and ureter, unspecified; E11.65 Type 2 diabetes mellitus with hyperglycemia; G45.9 Transient cerebral ischemic attack, unspecified; R31.0 Gross hematuria; I12.9 Hypertensive chronic kidney disease with stage 1 through stage 4 chronic kidney disease, or unspecified chronic kidney disease; E11.22 Type 2 diabetes mellitus with diabetic chronic kidney disease; N18.9 Chronic kidney disease, unspecified; R26.81 Unsteadiness on feet; N40.0 Benign prostatic hyperplasia without lower urinary tract symptoms; F03.90 Unspecified dementia, unspecified severity, without behavioral disturbance, psychotic disturbance, mood disturbance, and anxiety; J43.9 Emphysema, unspecified; E03.9 Hypothyroidism, unspecified; Z79.899 Other long term (current) drug therapy
CPT/HCPCS: 36415 ×4; 71045; 74176; 76770; 80048 ×4; 80053; 81001; 82962 ×9; 84484; 85014; 85018; 85025 ×5; 85610; 86850; 86900; 86901; 86920; 86921; 86922; 87040 ×2; 87070; 87086; 87205; 93005; 96360; 96361; 97161; 99285; A9270 ×17; J1815; J1956 ×2; J7040 ×7; J7120 ×3; P9016 ×2; 36430; 96365; 96376; 97530-GP; 99283; G0378

== ENCOUNTER 2017-07-08 12:01 | Emergency (ER) | payer MEDICARE, BC ==
--- NOTE | 2017-07-08 13:05 | EDM.PDOC ---
ED HPI GENERAL MEDICAL PROBLEM - General Chief Complaint: Genitourinary Problem Stated Complaint: BLADDER ISSUES Time Seen by Provider: 07/08/17 12:03 Source of Information: Reports: Patient History Limitations: Reports: No Limitations - History of Present Illness INITIAL COMMENTS - FREE TEXT/NARRATIVE: History of present illness: []Patient was recently discharged from the hospital for bladder infection and was treated with Levaquin. He had a follow-up appointment today with Dr. Mena however he is out of the clinic. So they were told to come here for follow-up. Patient had lab work and a urinalysis done today prior to arrival and results are improved to normal. His vital Signs are stable and has no new complaints. Patient has a chronic right leg cellulitis and has been doing daily dressing changes and has home health nurse coming in. Review of systems: As per history of present illness and below otherwise all systems reviewed and negative. Past medical history: As per history of present illness and as reviewed below otherwise noncontributory. Surgical history: As per history of present illness and as reviewed below otherwise noncontributory. Social history: No reported history of drug or alcohol abuse. Family history: As per history of present illness and as reviewed below otherwise noncontributory. Physical exam: General: Well developed, well nourished in NAD HEENT: Atraumatic, normocephalic, pupils reactive, negative for conjunctival pallor or scleral icterus, mucous membranes moist, throat clear, neck supple, nontender, trachea midline. Lungs: Clear to auscultation, breath sounds equal bilaterally, chest nontender. Heart: S1S2, regular, negative for clicks, rubs, or JVD. Abdomen: Soft, nondistended, nontender. Negative for masses or hepatosplenomegaly. Negative for costovertebral tenderness. Pelvis: Stable nontender. Genitourinary: Deferred. Rectal: Deferred. Extremities: Left leg with 2 areas of ulcerations surrounding erythema and mild edema, there are 2 small ulcerations on his right leg that are dry and not draining. negative for cords or calf pain. Neurovascular unremarkable. Neuro: Awake, alert, oriented. Cranial nerves II through XII unremarkable. Cerebellum unremarkable. Motor and sensory unremarkable throughout. Exam nonfocal. Diagnostics: []No lab work done to the ED. Labs done prior to arrival show anemia slightly improving, BUN/creatinine improving and negative UA Therapeutics: []Patient's right leg dressings were changed Impression: []chronic Cellulitis left leg Plan: []Follow-up with primary care M.DBrianna and continue meds as directed Definitive disposition and diagnosis as appropriate pending reevaluation and review of above. bilateral legs Pain Score (Numeric/FACES): 5 - Related Data Allergies Allergy/AdvReac Type Severity Reaction Status Date / Time No Known Allergies Allergy Verified 07/08/17 12:19 Home Meds: Home Meds Allopurinol [Zyloprim] 100 mg PO DAILY 03/22/17 [History] Levothyroxine Sodium [Levo-T] 50 mcg PO DAILY 03/22/17 [History] Sertraline HCl 25 mg PO DAILY 03/22/17 [History] amLODIPine [Norvasc] 5 mg PO DAILY #30 tablet 03/24/17 [Rx] Albuterol Sulfate 5 mg IH Q4H PRN 05/19/17 [History] Aspirin 81 mg PO DAILY 30 Days #30 tab.chew 05/21/17 [Rx] atorvaSTATin [Lipitor] 40 mg PO Q24H 30 Days #30 tablet 05/21/17 [Rx] Levofloxacin [Levaquin] 750 mg PO Q48H #2 tab 06/29/17 [Rx] Past Medical History HEENT History: Reports: Hard of Hearing, Impaired Vision Cardiovascular History: Reports: High Cholesterol, Hypertension, Other (See Below) Other Cardiovascular History: hypotension Respiratory History: Reports: Other (See Below) Other Respiratory History: emphysema Gastrointestinal History: Reports: None Genitourinary History: Reports: BPH, Other (See Below) Musculoskeletal History: Reports: Other (See Below) Other Musculoskeletal History: cervical fracture Neurological History: Reports: Head Trauma, TIA Psychiatric History: Reports: None Endocrine/Metabolic History: Reports: Diabetes, Type II, Hypothyroidism Hematologic History: Reports: Other (See Below) Other Hematologic History: blood transfusion Immunologic History: Reports: None Oncologic (Cancer) History: Reports: None Dermatologic History: Reports: None - Infectious Disease History Infectious Disease History: Reports: Chicken Pox, Measles, Mumps - Past Surgical History Head Surgeries/Procedures: Reports: None HEENT Surgical History: Reports: None Cardiovascular Surgical History: Reports: None Respiratory Surgical History: Reports: None GI Surgical History: Reports: Other (See Below) Male Surgical History: Reports: TURP-Transurethral Resection of Prostate, Other (See Below) Endocrine Surgical History: Reports: None Neurological Surgical History: Reports: None Dermatological Surgical History: Reports: None Social & Family History - Family History Family Medical History: Unobtainable - Tobacco Use Smoking Status *Q: Never Smoker Used Tobacco, but Quit: No Month Tobacco Last Used: years ago Second Hand Smoke Exposure: No - Caffeine Use Caffeine Use: Reports: None - Alcohol Use Days Per Week of Alcohol Use: 0 - Recreational Drug Use Recreational Drug Use: No - Living Situation & Occupation Living situation: Reports: with Family Occupation: Retired ED ROS GENERAL - Review of Systems Review Of Systems: See Below (See history of present illness) ED EXAM, GENERAL - Physical Exam Exam: See Below (See history of present illness) Course - Vital Signs Last Recorded V/S: Last Vital Signs Temp 96.8 F 07/08/17 12:23 Pulse 62 07/08/17 12:23 Resp 18 07/08/17 12:23 BP 145/57 H 07/08/17 12:23 Pulse Ox 99 07/08/17 12:23 Departure - Departure Time of Disposition: 13:07 Disposition: Home, Self-Care 01 Condition: Good Clinical Impression: Cellulitis of right leg - Discharge Information Referrals: Peng Cisneros MD [Primary Care Provider] - Additional Instructions: The following information is given to patients seen in the emergency department who are being discharged to home. This information is to outline your options for follow-up care. We provide all patients seen in our emergency department with a follow-up referral. The need for follow-up, as well as the timing and circumstances, are variable depending upon the specifics of your emergency department visit. If you don't have a primary care physician on staff, we will provide you with a referral. We always advise you to contact your personal physician following an emergency department visit to inform them of the circumstance of the visit and for follow-up with them and/or the need for any referrals to a consulting specialist. The emergency department will also refer you to a specialist when appropriate. This referral assures that you have the opportunity for follow-up care with a specialist. All of these measure are taken in an effort to provide you with optimal care, which includes your follow-up. Under all circumstances we always encourage you to contact your private physician who remains a resource for coordinating your care. When calling for follow-up care, please make the office aware that this follow-up is from your recent emergency room visit. If for any reason you are refused follow-up, please contact the [facility] Emergency Department at and asked to speak to the emergency department charge nurse. [facility] [address] [place] [id number]
[2017-07-08 14:02] VITALS: BP 135/80
== END 2017-07-08 13:30 | disposition home or self-care (01) ==
LOC: MW.ED 12:01
DX: L03.116 Cellulitis of left lower limb (principal); L03.115 Cellulitis of right lower limb; I10 Essential (primary) hypertension; E11.9 Type 2 diabetes mellitus without complications; E03.9 Hypothyroidism, unspecified; E78.00 Pure hypercholesterolemia, unspecified; Z79.82 Long term (current) use of aspirin; Z79.899 Other long term (current) drug therapy
CPT/HCPCS: 36415; 80053; 80061; 81001; 83880; 84153; 84439; 84443; 85025; 99214; 99282

== ENCOUNTER 2017-08-03 19:57 | Observation (INO) | payer MEDICARE, BC ==
--- NOTE | 2017-08-03 20:18 | EDM.PDOC ---
<Elizabeth Mata - Last Filed: 08/03/17 23:00> ED HPI GENERAL MEDICAL PROBLEM - General Chief Complaint: Genitourinary Problem Stated Complaint: PT HAS BLOOD IN URINE Time Seen by Provider: 08/03/17 20:10 Source of Information: Reports: EMS, Family History Limitations: Reports: No Limitations, Other (dementia) - History of Present Illness INITIAL COMMENTS - FREE TEXT/NARRATIVE: HISTORY AND PHYSICAL: History of present illness: [Comes to the emergency room via EMS. His noticed blood and bright red urine in his Bowen catheter and leg bag approximately 2 hours prior to ER arrival. He had a Bowen catheter placed during his hospitalization for UTI at the end of June 2017. He has followed up with Dr. Uma soliman urologist, at [facility] in [place] on July 20 at which time the catheter was changed. Up until this evening he had been passing clear yellow urine without any difficulty. Patient is a poor historian and has a history of dementia. states that he has not had any fever or chills he has been acting normally today. Has been eating and drinking normally, and has not had any complaints. and daughter at the bedside who provided patient's history due to dementia. He has not had his HS meds yet. ] Review of systems: As per history of present illness and below otherwise all systems reviewed and negative. Past medical history: As per history of present illness and as reviewed below otherwise noncontributory. Surgical history: As per history of present illness and as reviewed below otherwise noncontributory. Social history: No reported history of drug or alcohol abuse. Family history: As per history of present illness and as reviewed below otherwise noncontributory. Physical exam: Gen.: Frail elderly male in no acute distress. Laying comfortably on exam cart. Vitals are stable and reviewed by me. HEENT: Atraumatic, normocephalic. Lungs: Clear to auscultation, breath sounds equal bilaterally. Heart: S1S2, regular rate and rhythm. Abdomen: bowel sounds are normoactive throughout. Abdomen is soft. Mildly distended over bladder area. Patient denies tenderness with palpation. No masses guarding or rebound. Pelvis: Stable nontender. Genitourinary: Thick red blood to Bowen catheter and at insertion site in the penis. Bowen appears secure with normal tension. Rectal: Deferred. Extremities: swelling or cyanosis to feet or lower legs.lar unremarkable. Neuro: Awake, alert, oriented. Motor and sensory unremarkable throughout. Exam nonfocal. Diagnostics: [Urinalysis and culture, CBC, CMP, PT/INR/PTT, bladder scan] Therapeutics: [Levaquin 500mg IV] Impression: [UTI clotting of bowen catheter] Plan: [UA shows red cloudy urine. + nitrites. Glucose 100, 15 ketones, large amount of blood. Leukocyte Estrace is to numerous to count. Culture pending. Hemoglobin is stable at 9.2. White blood cell 6.96. INR 1.12. Sodium 128, BUN 53 , creatinine 2.0. Bladder scan shows 821 mL's of retained urine. Case is discussed w/ Dr. Ken Aragon who agrees to observation overnight for IV antibiotics and monitoring of bowen catheter. Dr. Salmon, urologist concrete plant laborer at [facility], is contacted for recommendations. Levaquin 500mg IV started in ER. Urologist recommends hand irrigation to the present Bowen catheter as often as needed to remove clots. If clots continue to form around the insertion point in the penis, he recommends changing the catheter to a three-way, 20 Swiss Bowen. If urine output remains consistent and patient is not retaining, he may follow-up with his urologist, Dr. Eaton, as he recommends. If the patient continues to experience clotting of his catheter, urine output is diminished or patient is retaining urine, Dr. Eaton should be notified in the morning, with transfer arranged. RN in the ER successfully irrigated 1000 mL's of urine mixed with blood and clots from the catheter. ] Definitive disposition and diagnosis as appropriate pending reevaluation and review of above. Treatments EMERGENCY MEDICAL TECHNICIAN/DRIVER: Reports: IV/IO abdomen Pain Score (Numeric/FACES): 5 - Related Data Allergies Allergy/AdvReac Type Severity Reaction Status Date / Time No Known Allergies Allergy Verified 08/03/17 20:02 Home Meds: Home Meds Allopurinol [Zyloprim] 100 mg PO DAILY 03/22/17 [History] Levothyroxine Sodium [Levo-T] 50 mcg PO DAILY 03/22/17 [History] Sertraline HCl 25 mg PO DAILY 03/22/17 [History] amLODIPine [Norvasc] 5 mg PO DAILY #30 tablet 03/24/17 [Rx] Albuterol Sulfate 5 mg IH Q4H PRN 05/19/17 [History] Aspirin 81 mg PO DAILY 30 Days #30 tab.chew 05/21/17 [Rx] atorvaSTATin [Lipitor] 40 mg PO Q24H 30 Days #30 tablet 05/21/17 [Rx] Amoxicillin/Potassium Clav [Augmentin 875-125 Tablet] 1 each PO BID 08/03/17 [ History] Docusate Sodium [Colace] 1 cap PO BID 08/03/17 [History] Furosemide [Lasix] 20 mg PO DAILY 08/03/17 [History] Insulin Glarg,Human.Rec.Analog [Lantus] 5 unit SUBCUT BEDTIME 08/03/17 [History] Losartan [Cozaar] 50 mg PO DAILY 08/03/17 [History] Tamsulosin HCl [Flomax] 0.4 mg PO BEDTIME 08/03/17 [History] Past Medical History HEENT History: Reports: Hard of Hearing, Impaired Vision Cardiovascular History: Reports: High Cholesterol, Hypertension, Other (See Below) Other Cardiovascular History: hypotension Respiratory History: Reports: Other (See Below) Other Respiratory History: emphysema Gastrointestinal History: Reports: None Genitourinary History: Reports: BPH, Other (See Below) Musculoskeletal History: Reports: Other (See Below) Other Musculoskeletal History: cervical fracture Neurological History: Reports: Head Trauma, TIA Psychiatric History: Reports: None Endocrine/Metabolic History: Reports: Diabetes, Type II, Hypothyroidism Hematologic History: Reports: Other (See Below) Other Hematologic History: blood transfusion Immunologic History: Reports: None Oncologic (Cancer) History: Reports: None Dermatologic History: Reports: None - Infectious Disease History Infectious Disease History: Reports: None - Past Surgical History Head Surgeries/Procedures: Reports: None HEENT Surgical History: Reports: None Cardiovascular Surgical History: Reports: None Respiratory Surgical History: Reports: None GI Surgical History: Reports: Other (See Below) Male Surgical History: Reports: TURP-Transurethral Resection of Prostate, Other (See Below) Endocrine Surgical History: Reports: None Neurological Surgical History: Reports: None Dermatological Surgical History: Reports: None Social & Family History - Family History Family Medical History: Noncontributory - Tobacco Use Smoking Status *Q: Former Smoker Used Tobacco, but Quit: No Month/Year Tobacco Last Used: years ago Second Hand Smoke Exposure: No - Caffeine Use Caffeine Use: Reports: Coffee - Alcohol Use Days Per Week of Alcohol Use: 0 - Recreational Drug Use Recreational Drug Use: No - Living Situation & Occupation Living situation: Reports: with Family Occupation: Retired ED ROS GENERAL - Review of Systems Review Of Systems: ROS reveals no pertinent complaints other than HPI. ED EXAM, RENAL/ - Physical Exam Exam: See Below Course - Vital Signs Last Recorded V/S: Last Vital Signs Temp 37.2 C 08/04/17 00:03 Pulse 70 08/04/17 00:03 Resp 18 08/04/17 00:03 BP 122/55 L 08/04/17 00:03 Pulse Ox 96 08/04/17 00:03 - Orders/Labs/Meds Orders: Active Orders 24 hr Category Date Time Status Bladder Scan [RC] ONETIME Care 08/03/17 21:24 Active CULTURE URINE [RM] Stat Lab 08/03/17 20:39 Received UA W/MICROSCOPIC [URIN] Stat Lab 08/03/17 20:39 Ordered Sodium Chloride 0.9% [Saline Flush] Med 08/03/17 20:50 Active 10 ml FLUSH ASDIRECTED PRN Sodium Chloride 0.9% [Saline Flush] Med 08/03/17 20:50 Active 2.5 ml FLUSH ASDIRECTED PRN Saline Lock Insert [OM.PC] Stat Oth 08/03/17 20:50 Ordered Medication Orders Sodium Chloride (Normal Saline) 1,000 mls @ 125 mls/hr IV ASDIRECTED TED Last Admin: 08/04/17 02:29 Dose: 125 mls/hr Levofloxacin/Dextrose 250 mg/ (Premix) 50 mls @ 50 mls/hr IV Q24H TED Insulin Aspart (Novolog) 0 unit SUBCUT Q6H TED; Protocol Sodium Chloride (Saline Flush) 10 ml FLUSH ASDIRECTED PRN PRN Reason: Keep Vein Open Last Admin: 08/03/17 23:23 Dose: 10 ml Sodium Chloride (Saline Flush) 2.5 ml FLUSH ASDIRECTED PRN PRN Reason: Keep Vein Open Last Admin: 08/03/17 23:23 Dose: 2.5 ml Labs: Laboratory Tests 08/03/17 08/03/17 08/03/17 Range/Units 20:39 21:00 21:00 WBC 6.96 (4.0-11.0) K/uL RBC 3.05 L (4.50-5.90) M/uL Hgb 9.2 L (13.0-17.0) g/dL Hct 28.0 L (38.0-50.0) % MCV 91.8 (80.0-98.0) fL MCH 30.2 (27.0-32.0) pg MCHC 32.9 (31.0-37.0) g/dL RDW Std Deviation 51.8 (28.0-62.0) fl RDW Coeff of Pura 15 (11.0-15.0) % Plt Count 151 (150-400) K/uL MPV 8.30 (7.40-12.00) fL Neut % (Auto) 72.3 (48.0-80.0) % Lymph % (Auto) 15.4 L (16.0-40.0) % [place] % (Auto) 10.5 (0.0-15.0) % Eos % (Auto) 1.7 (0.0-7.0) % Baso % (Auto) 0.1 (0.0-1.5) % Neut # (Auto) 5.0 (1.4-5.7) K/uL Lymph # (Auto) 1.1 (0.6-2.4) K/uL [place] # (Auto) 0.7 (0.0-0.8) K/uL Eos # (Auto) 0.1 (0.0-0.7) K/uL Baso # (Auto) 0.0 (0.0-0.1) K/uL Nucleated RBC % 0.0 /100WBC Nucleated RBCs # 0 K/uL INR 1.12 Sodium (136-148) mmol/L Potassium (3.5-5.1) mmol/L Chloride (98-107) mmol/L Carbon Dioxide (21.0-32.0) mmol/L BUN (7.0-18.0) mg/dL Creatinine (0.8-1.3) mg/dL Est Cr Clr Drug Dosing mL/min Estimated GFR (MDRD) ml/min Glucose (74-106) mg/dL Calcium (8.5-10.1) mg/dL Total Bilirubin (0.2-1.0) mg/dL AST (15-37) IU/L ALT (14-63) IU/L Alkaline Phosphatase (46-116) U/L Total Protein (6.4-8.2) g/dL Albumin (3.4-5.0) g/dL Globulin (2.0-3.5) g/dL Albumin/Globulin Ratio (1.3-2.8) Urine Color RED Urine Appearance SLT CLOUDY Urine pH 7.0 (5.0-8.0) Ur Specific [place] 1.010 (1.001-1.035) Urine Protein >=300 (NEGATIVE) mg/dL Urine Glucose (UA) 100 H (NEGATIVE) mg/dL Urine Ketones 15 H (NEGATIVE) mg/dL Urine Occult Blood LARGE H (NEGATIVE) Urine Nitrite POSITIVE H (NEGATIVE) Urine Bilirubin NEGATIVE (NEGATIVE) Urine Urobilinogen 2.0 H (<2.0) EU/dL Ur Leukocyte Esterase MODERATE (NEGATIVE) Urine RBC TOO NUMBER (0-2/HPF) Urine WBC 0-2 (0-5/HPF) Ur Epithelial Cells RARE (NONE-FEW) Urine Bacteria RARE (NEGATIVE) Urinalysis Comment 08/03/17 Range/Units 21:00 WBC (4.0-11.0) K/uL RBC (4.50-5.90) M/uL Hgb (13.0-17.0) g/dL Hct (38.0-50.0) % MCV (80.0-98.0) fL MCH (27.0-32.0) pg MCHC (31.0-37.0) g/dL RDW Std Deviation (28.0-62.0) fl RDW Coeff of Pura (11.0-15.0) % Plt Count (150-400) K/uL MPV (7.40-12.00) fL Neut % (Auto) (48.0-80.0) % Lymph % (Auto) (16.0-40.0) % [place] % (Auto) (0.0-15.0) % Eos % (Auto) (0.0-7.0) % Baso % (Auto) (0.0-1.5) % Neut # (Auto) (1.4-5.7) K/uL Lymph # (Auto) (0.6-2.4) K/uL [place] # (Auto) (0.0-0.8) K/uL Eos # (Auto) (0.0-0.7) K/uL Baso # (Auto) (0.0-0.1) K/uL Nucleated RBC % /100WBC Nucleated RBCs # K/uL INR Sodium 128 L (136-148) mmol/L Potassium 4.7 (3.5-5.1) mmol/L Chloride 97 L (98-107) mmol/L Carbon Dioxide 23.1 (21.0-32.0) mmol/L BUN 53 H (7.0-18.0) mg/dL Creatinine 2.0 H (0.8-1.3) mg/dL Est Cr Clr Drug Dosing 24.10 mL/min Estimated GFR (MDRD) 31.6 ml/min Glucose 128 H (74-106) mg/dL Calcium 8.3 L (8.5-10.1) mg/dL Total Bilirubin 0.5 (0.2-1.0) mg/dL AST 29 (15-37) IU/L ALT 28 (14-63) IU/L Alkaline Phosphatase 122 H (46-116) U/L Total Protein 6.2 L (6.4-8.2) g/dL Albumin 2.3 L (3.4-5.0) g/dL Globulin 3.9 H (2.0-3.5) g/dL Albumin/Globulin Ratio 0.6 L (1.3-2.8) Urine Color Urine Appearance Urine pH (5.0-8.0) Ur Specific [place] (1.001-1.035) Urine Protein (NEGATIVE) mg/dL Urine Glucose (UA) (NEGATIVE) mg/dL Urine Ketones (NEGATIVE) mg/dL Urine Occult Blood (NEGATIVE) Urine Nitrite (NEGATIVE) Urine Bilirubin (NEGATIVE) Urine Urobilinogen (<2.0) EU/dL Ur Leukocyte Esterase (NEGATIVE) Urine RBC (0-2/HPF) Urine WBC (0-5/HPF) Ur Epithelial Cells (NONE-FEW) Urine Bacteria (NEGATIVE) Urinalysis Comment Meds: Medications Generic Name Dose Route Start Last Admin Trade Name Freq PRN Reason Stop Dose Admin Sodium Chloride 1,000 mls @ 125 mls/hr 08/04/17 02:15 08/04/17 02:29 Normal Saline IV 125 mls/hr ASDIRECTED TED Administration Levofloxacin/Dextrose 250 mg/ 50 mls @ 50 mls/hr 08/04/17 22:00 Premix IV Q24H TED Insulin Aspart 0 unit 08/04/17 02:15 Novolog SUBCUT Q6H TED Protocol Sodium Chloride 10 ml 08/03/17 20:50 08/03/17 23:23 Saline Flush FLUSH 10 ml ASDIRECTED PRN Administration Keep Vein Open Sodium Chloride 2.5 ml 08/03/17 20:50 08/03/17 23:23 Saline Flush FLUSH 2.5 ml ASDIRECTED PRN Administration Keep Vein Open Discontinued Medications Generic Name Dose Route Start Last Admin Trade Name Freq PRN Reason Stop Dose Admin Levofloxacin/Dextrose 500 mg/ 100 mls @ 100 mls/hr 08/03/17 22:33 08/03/17 23 :23 Premix IV 08/03/17 23:32 100 mls/hr ONETIME ONE Administration Departure - Departure Time of Disposition: 23:00 Disposition: Refer to Observation Condition: Good Clinical Impression: UTI, Urinary tract infectious disease, Bowen catheter problem - Discharge Information - My Orders Last 24 Hours: My Active Orders 08/03/17 20:50 Sodium Chloride 0.9% [Saline Flush] 10 ml FLUSH ASDIRECTED PRN Sodium Chloride 0.9% [Saline Flush] 2.5 ml FLUSH ASDIRECTED PRN Saline Lock Insert [OM.PC] Stat - Assessment/Plan Last 24 Hours: My Active Orders 08/03/17 20:50 Sodium Chloride 0.9% [Saline Flush] 10 ml FLUSH ASDIRECTED PRN Sodium Chloride 0.9% [Saline Flush] 2.5 ml FLUSH ASDIRECTED PRN Saline Lock Insert [OM.PC] Stat <Ginny Cleveland - Last Filed: 08/04/17 03:24> ED HPI GENERAL MEDICAL PROBLEM - History of Present Illness INITIAL COMMENTS - FREE TEXT/NARRATIVE: Please note that all lab values of today were compared with prior lab tests including his hemoglobin and renal function and this information was relayed to Dr. Aragon.
[2017-08-03] MEDS ORDERED: Sodium Chloride 0.9% 2.5 ML Syringe FLUSH PRN (20:50)
[2017-08-03] MEDS ORDERED: Sodium Chloride 0.9% 10 ML Syringe FLUSH PRN (20:50)
[2017-08-03] MEDS ORDERED: Levofloxacin/Dextrose 5%-Water 500 MG in Premix Bag 1 BAG IV ONE (22:33)
[2017-08-04] MEDS: Sodium Chloride 0.9% 1,000 ML IV SCH ×2 (02:29→11:26)
[2017-08-04] MEDS: Insulin Aspart 100 Units/ML 3 ML Pen SUBCUT SCH ×3 (06:36→16:05)
--- NOTE | 2017-08-04 11:06 | PCM.HP ---
H&P History of Present Illness - General Date of Service: 08/04/17 Admit Problem/Dx: Admission Diagnosis/Problem Admission Diagnosis/Problem UTI, Urinary tract infectious disease Source of Information: Patient History Limitations: Reports: No Limitations - History of Present Illness Initial Comments - Free Text/Narative: Discharge Summary Date of admission: 08/03/2017 Date of discharge: 08/04/2017 Admitting diagnosis: #1. Obstructive uropathy secondary to clotting formation obstructing the Carroll catheter likely secondary to UTI #2. Urinary tract infection. Urine analysis, urine culture pending #3. Stable anemia of 9.2 likely secondary to hematuria #4. Significant past medical history for dementia, repeat UTIs with obstructive uropathy, type 2 diabetes, hypertension #5. Discharge diagnoses: #1. Obstructive uropathy secondary to clot formation obstructing the Carroll catheter likely secondary to urinary tract infection #2. UTI confirmed on urinalysis awaiting urine culture #3. Anemia slightly worsening then on admission of 8.3 #4. Inability to place the 3-way Carroll catheter due to obstruction likely secondary to clot formation #5. Multiple past medical history comorbidities including dementia Consultations: Urology, phone conversation with [facility] team Procedures: None Hospitalization course: Patient was admitted from the ER secondary to the obstructive uropathy process that he has had in the past. The obstruction of his Carroll catheter is due to clot formation which the patient's family states is typically occurring when the patient has a urinary tract infection that seems to inflame and exacerbate some abnormal blood vessels of the bladder wall that significantly bleeding and causing clot formation. Patient was admitted and unfortunately was not cleared of his clots overnight and did not have any output through his urinary catheter due to blockage of a flow. When assessed in the a.m. I noted that the patient bladder was palpable and distended, I had nursing staff flush the catheter which caused a extensive amount of clots to be released patient's urine was red and clearly hematuric. I spoke with Dr. Eaton, who asked to have the 3-way catheter placed and be aggressive with the continuous bladder irrigation infusion, and to flush via manual expression to get the clots out every hour until we have appropriate flow without it clotting. Unfortunately when the nursing staff tried to take the original Carroll out and put in the 3-way catheter they were unable to fully insert the catheter due to resistance that they met within the urethra likely due to clot formation , as well as significant BPH, multiple attempts were done and they were unsuccessful, we were able to put in a two-way catheter after numerous tries and clot removal was able to be done however continuous clotting was occurring and nursing became uncomfortable with the management of the patient. At that point in time it was determined to have the patient transferred for a higher level of care. Initially urology in [place] was called for transfer however [place] expressly refused the transfer. As such it was decided to transfer the patient over to [facility] in [place] home readily and with ease accepted the patient for appropriate intervention and management. Disposition on discharge: Transfer to [facility] Condition on discharge: Stable Discharge medications: Continuation of home medication, continuation of IV Levaquin, IV fluids running at 100cc/hr This is an 89-year-old male who presented to the ER secondary to blood in his urine that was bright red it was seen in his Carroll catheter/bag. Patient states that this episode started approximately about 2-3 hours prior to the arrival into the ER. Patient has had a history of blood clots/hematuria seen in his catheter secondary to UTI infections and abnormal vessel disruption of the bladder wall that can inflamed and bleed during UTI flareups. Patient was just recently seen on July [address] Eaton, who is a urologist in [facility]. At that time the patient was not having any clotting of his urine or any bright red blood seen in the catheter. Upon entry into the ER a UA was done which showed to be cloudy positive for nitrites and positive for ketones positive for large amount of blood and positive leukocyte esterase, a urine culture was obtained. Patient had CBC done which indicated a hemoglobin of 9.2, and elevated white blood cell count of 6.968 INR 1.2. Patient's creatinine had slightly risen up to 2.0 which is slightly above his baseline which typically is between 1.5-1.8. Urology was consult to take in [place] and they recommended the patient be started on Levaquin 500 milligrams IV, patient have his Carroll catheter changed and switch to a 3-way catheter 20 [place] Carroll and have repeat irrigations done to ensure that clots were removed from the catheter to allow for appropriate urinary flow. Patient was then subsequently admitted to the floor. abdomen Pain Score (Numeric/FACES): 5 - Related Data Allergies/Adverse Reactions: Allergies Allergy/AdvReac Type Severity Reaction Status Date / Time No Known Allergies Allergy Verified 08/03/17 20:02 Home Medications: Home Meds Allopurinol [Zyloprim] 100 mg PO DAILY 03/22/17 [History] Levothyroxine Sodium [Levo-T] 50 mcg PO DAILY 03/22/17 [History] Sertraline HCl 25 mg PO DAILY 03/22/17 [History] amLODIPine [Norvasc] 5 mg PO DAILY #30 tablet 03/24/17 [Rx] Albuterol Sulfate 5 mg IH Q4H PRN 05/19/17 [History] Aspirin 81 mg PO DAILY 30 Days #30 tab.chew 05/21/17 [Rx] atorvaSTATin [Lipitor] 40 mg PO Q24H 30 Days #30 tablet 05/21/17 [Rx] Tamsulosin HCl [Flomax] 0.4 mg PO BEDTIME 08/03/17 [History] Levofloxacin/Dextrose 5%-Water [Levaquin in D5W 250 MG/50 ML] 250 mg IV Q24H bag 08/04/17 [Rx] Past Medical History HEENT History: Reports: Hard of Hearing, Impaired Vision Cardiovascular History: Reports: High Cholesterol, Hypertension, Other (See Below) Other Cardiovascular History: hypotension with TIAs Respiratory History: Reports: Other (See Below) Other Respiratory History: emphysema; 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 Gastrointestinal History: Reports: None Genitourinary History: Reports: BPH, Other (See Below) Musculoskeletal History: Reports: Fracture, Gout, Other (See Below) Other Musculoskeletal History: cervical fracture Neurological History: Reports: Head Trauma, TIA Psychiatric History: Reports: None Endocrine/Metabolic History: Reports: Diabetes, Type II, Hypothyroidism Hematologic History: Reports: Blood Transfusion(s) Other Hematologic History: blood transfusion Immunologic History: Reports: None Oncologic (Cancer) History: Reports: Colon Dermatologic History: Reports: None - Infectious Disease History Infectious Disease History: Reports: None - Past Surgical History Head Surgeries/Procedures: Reports: None HEENT Surgical History: Reports: Cataract Surgery Cardiovascular Surgical History: Reports: None Respiratory Surgical History: Reports: None GI Surgical History: Reports: Colonoscopy Male Surgical History: Reports: TURP-Transurethral Resection of Prostate, Other (See Below) Endocrine Surgical History: Reports: None Neurological Surgical History: Reports: None Musculoskeletal Surgical History: Reports: None Dermatological Surgical History: Reports: None Social & Family History - Family History Family Medical History: Noncontributory - Tobacco Use Smoking Status *Q: Former Smoker Used Tobacco, but Quit: Yes Month/Year Tobacco Last Used: 1997 Second Hand Smoke Exposure: No - Caffeine Use Caffeine Use: Reports: Coffee - Alcohol Use Days Per Week of Alcohol Use: 0 - Recreational Drug Use Recreational Drug Use: No - Living Situation & Occupation Living situation: Reports: with Family Occupation: Retired H&P Review of Systems - Review of Systems: Review Of Systems: ROS reveals no pertinent complaints other than HPI. Exam - Exam Exam: See Below - Vital Signs Vital Signs: Last Vital Signs Temp 37.6 C 08/04/17 07:30 Pulse 70 08/04/17 07:30 Resp 18 08/04/17 07:30 BP 123/84 08/04/17 07:30 Pulse Ox 92 L 08/04/17 07:30 Weight: 68.039 kg - Exam Quality Assessment: Supplemental Oxygen General: Alert, Oriented, Cooperative, Moderate Distress Lungs: Clear to Auscultation, Normal Respiratory Effort Cardiovascular: Regular Rate, Regular Rhythm GI/Abdominal Exam: Other (Male) Exam: Scrotum Tenderness (R), Suprapubic Fullness Extremities: Normal Inspection - Patient Data Lab Results Last 24 hrs: Laboratory Results - last 24 hr 08/03/17 08/03/17 08/03/17 Range/Units 20:39 21:00 21:00 WBC 6.96 (4.0-11.0) K/uL RBC 3.05 L (4.50-5.90) M/uL Hgb 9.2 L (13.0-17.0) g/dL Hct 28.0 L (38.0-50.0) % MCV 91.8 (80.0-98.0) fL MCH 30.2 (27.0-32.0) pg MCHC 32.9 (31.0-37.0) g/dL RDW Std Deviation 51.8 (28.0-62.0) fl RDW Coeff of Pura 15 (11.0-15.0) % Plt Count 151 (150-400) K/uL MPV 8.30 (7.40-12.00) fL Neut % (Auto) 72.3 (48.0-80.0) % Lymph % (Auto) 15.4 L (16.0-40.0) % [place] % (Auto) 10.5 (0.0-15.0) % Eos % (Auto) 1.7 (0.0-7.0) % Baso % (Auto) 0.1 (0.0-1.5) % Neut # (Auto) 5.0 (1.4-5.7) K/uL Lymph # (Auto) 1.1 (0.6-2.4) K/uL [place] # (Auto) 0.7 (0.0-0.8) K/uL Eos # (Auto) 0.1 (0.0-0.7) K/uL Baso # (Auto) 0.0 (0.0-0.1) K/uL Nucleated RBC % 0.0 /100WBC Nucleated RBCs # 0 K/uL INR 1.12 Sodium (136-148) mmol/L Potassium (3.5-5.1) mmol/L Chloride (98-107) mmol/L Carbon Dioxide (21.0-32.0) mmol/L BUN (7.0-18.0) mg/dL Creatinine (0.8-1.3) mg/dL Est Cr Clr Drug Dosing mL/min Estimated GFR (MDRD) ml/min Glucose (74-106) mg/dL POC Glucose (60-110) mg/dL Calcium (8.5-10.1) mg/dL Total Bilirubin (0.2-1.0) mg/dL AST (15-37) IU/L ALT (14-63) IU/L Alkaline Phosphatase (46-116) U/L Total Protein (6.4-8.2) g/dL Albumin (3.4-5.0) g/dL Globulin (2.0-3.5) g/dL Albumin/Globulin Ratio (1.3-2.8) Urine Color RED Urine Appearance SLT CLOUDY Urine pH 7.0 (5.0-8.0) Ur Specific [place] 1.010 (1.001-1.035) Urine Protein >=300 (NEGATIVE) mg/dL Urine Glucose (UA) 100 H (NEGATIVE) mg/dL Urine Ketones 15 H (NEGATIVE) mg/dL Urine Occult Blood LARGE H (NEGATIVE) Urine Nitrite POSITIVE H (NEGATIVE) Urine Bilirubin NEGATIVE (NEGATIVE) Urine Urobilinogen 2.0 H (<2.0) EU/dL Ur Leukocyte Esterase MODERATE (NEGATIVE) Urine RBC TOO NUMBER (0-2/HPF) Urine WBC 0-2 (0-5/HPF) Ur Epithelial Cells RARE (NONE-FEW) Urine Bacteria RARE (NEGATIVE) Urinalysis Comment 08/03/17 08/04/17 08/04/17 Range/Units 21:00 04:41 05:03 WBC 5.82 (4.0-11.0) K/uL RBC 2.80 L (4.50-5.90) M/uL Hgb 8.3 L (13.0-17.0) g/dL Hct 25.4 L (38.0-50.0) % MCV 90.7 (80.0-98.0) fL MCH 29.6 (27.0-32.0) pg MCHC 32.7 (31.0-37.0) g/dL RDW Std Deviation 50.7 (28.0-62.0) fl RDW Coeff of Pura 15 (11.0-15.0) % Plt Count 162 (150-400) K/uL MPV 8.50 (7.40-12.00) fL Neut % (Auto) 66.1 (48.0-80.0) % Lymph % (Auto) 19.9 (16.0-40.0) % [place] % (Auto) 11.9 (0.0-15.0) % Eos % (Auto) 1.9 (0.0-7.0) % Baso % (Auto) 0.2 (0.0-1.5) % Neut # (Auto) 3.9 (1.4-5.7) K/uL Lymph # (Auto) 1.2 (0.6-2.4) K/uL [place] # (Auto) 0.7 (0.0-0.8) K/uL Eos # (Auto) 0.1 (0.0-0.7) K/uL Baso # (Auto) 0.0 (0.0-0.1) K/uL Nucleated RBC % 0.0 /100WBC Nucleated RBCs # 0 K/uL INR Sodium 128 L (136-148) mmol/L Potassium 4.7 (3.5-5.1) mmol/L Chloride 97 L (98-107) mmol/L Carbon Dioxide 23.1 (21.0-32.0) mmol/L BUN 53 H (7.0-18.0) mg/dL Creatinine 2.0 H (0.8-1.3) mg/dL Est Cr Clr Drug Dosing 24.10 mL/min Estimated GFR (MDRD) 31.6 ml/min Glucose 128 H (74-106) mg/dL POC Glucose 111 H (60-110) mg/dL Calcium 8.3 L (8.5-10.1) mg/dL Total Bilirubin 0.5 (0.2-1.0) mg/dL AST 29 (15-37) IU/L ALT 28 (14-63) IU/L Alkaline Phosphatase 122 H (46-116) U/L Total Protein 6.2 L (6.4-8.2) g/dL Albumin 2.3 L (3.4-5.0) g/dL Globulin 3.9 H (2.0-3.5) g/dL Albumin/Globulin Ratio 0.6 L (1.3-2.8) Urine Color Urine Appearance Urine pH (5.0-8.0) Ur Specific [place] (1.001-1.035) Urine Protein (NEGATIVE) mg/dL Urine Glucose (UA) (NEGATIVE) mg/dL Urine Ketones (NEGATIVE) mg/dL Urine Occult Blood (NEGATIVE) Urine Nitrite (NEGATIVE) Urine Bilirubin (NEGATIVE) Urine Urobilinogen (<2.0) EU/dL Ur Leukocyte Esterase (NEGATIVE) Urine RBC (0-2/HPF) Urine WBC (0-5/HPF) Ur Epithelial Cells (NONE-FEW) Urine Bacteria (NEGATIVE) Urinalysis Comment 08/04/17 08/04/17 Range/Units 05:03 06:12 WBC (4.0-11.0) K/uL RBC (4.50-5.90) M/uL Hgb (13.0-17.0) g/dL Hct (38.0-50.0) % MCV (80.0-98.0) fL MCH (27.0-32.0) pg MCHC (31.0-37.0) g/dL RDW Std Deviation (28.0-62.0) fl RDW Coeff of Pura (11.0-15.0) % Plt Count (150-400) K/uL MPV (7.40-12.00) fL Neut % (Auto) (48.0-80.0) % Lymph % (Auto) (16.0-40.0) % [place] % (Auto) (0.0-15.0) % Eos % (Auto) (0.0-7.0) % Baso % (Auto) (0.0-1.5) % Neut # (Auto) (1.4-5.7) K/uL Lymph # (Auto) (0.6-2.4) K/uL [place] # (Auto) (0.0-0.8) K/uL Eos # (Auto) (0.0-0.7) K/uL Baso # (Auto) (0.0-0.1) K/uL Nucleated RBC % /100WBC Nucleated RBCs # K/uL INR Sodium 132 L (136-148) mmol/L Potassium 4.3 (3.5-5.1) mmol/L Chloride 101 (98-107) mmol/L Carbon Dioxide 21.5 (21.0-32.0) mmol/L BUN 55 H (7.0-18.0) mg/dL Creatinine 1.9 H (0.8-1.3) mg/dL Est Cr Clr Drug Dosing 25.37 mL/min Estimated GFR (MDRD) 33.5 ml/min Glucose 107 H (74-106) mg/dL POC Glucose 110 (60-110) mg/dL Calcium 8.4 L (8.5-10.1) mg/dL Total Bilirubin (0.2-1.0) mg/dL AST (15-37) IU/L ALT (14-63) IU/L Alkaline Phosphatase (46-116) U/L Total Protein (6.4-8.2) g/dL Albumin (3.4-5.0) g/dL Globulin (2.0-3.5) g/dL Albumin/Globulin Ratio (1.3-2.8) Urine Color Urine Appearance Urine pH (5.0-8.0) Ur Specific [place] (1.001-1.035) Urine Protein (NEGATIVE) mg/dL Urine Glucose (UA) (NEGATIVE) mg/dL Urine Ketones (NEGATIVE) mg/dL Urine Occult Blood (NEGATIVE) Urine Nitrite (NEGATIVE) Urine Bilirubin (NEGATIVE) Urine Urobilinogen (<2.0) EU/dL Ur Leukocyte Esterase (NEGATIVE) Urine RBC (0-2/HPF) Urine WBC (0-5/HPF) Ur Epithelial Cells (NONE-FEW) Urine Bacteria (NEGATIVE) Urinalysis Comment Result Diagrams: 08/04/17 05:03 08/04/17 05:03 - Problem List (1) Urethral obstruction SNOMED Code(s): 02666279 ICD Code: N36.8 - OTHER SPECIFIED DISORDERS OF URETHRA Status: Acute Current Visit: Yes (2) Urinary tract infection SNOMED Code(s): 77859047 ICD Code: N39.0 - URINARY TRACT INFECTION, SITE NOT SPECIFIED Status: Acute Current Visit: Yes (3) Hematuria SNOMED Code(s): 41582480 ICD Code: R31.9 - HEMATURIA, UNSPECIFIED Status: Acute Current Visit: Yes Problem List Initiated/Reviewed/Updated: Yes Orders Last 24hrs: Active Orders 24 hr Category Date Time Status Patient Status [ADT] Stat ADT 08/03/17 22:54 Active Bladder Irrigation [RC] PRN Care 08/04/17 02:14 Active Blood Glucose Check, Bedside [RC] Q6H Care 08/04/17 02:12 Active NPO [Nothing Per Oral Diet] [DIET] Diet 08/04/17 Breakfast Active CULTURE URINE [RM] Stat Lab 08/03/17 20:39 Received UA W/MICROSCOPIC [URIN] Stat Lab 08/03/17 20:39 Ordered Insulin Aspart [NovoLOG] Med 08/04/17 02:15 Active See Protocol SUBCUT Q6H Levofloxacin/Dextrose 5%-Water [Levaquin in D5W 250 MG/ Med 08/04/17 22:00 Active 50 ML] 250 mg Premix Bag 1 bag IV Q24H Sodium Chloride 0.9% [Normal Saline] 1,000 ml Med 08/04/17 02:15 Active IV ASDIRECTED Sodium Chloride 0.9% [Saline Flush] Med 08/03/17 20:50 Active 10 ml FLUSH ASDIRECTED PRN Sodium Chloride 0.9% [Saline Flush] Med 08/03/17 20:50 Active 2.5 ml FLUSH ASDIRECTED PRN Saline Lock Insert [OM.PC] Stat Oth 08/03/17 20:50 Ordered Medication Orders Sodium Chloride (Normal Saline) 1,000 mls @ 125 mls/hr IV ASDIRECTED TED Last Admin: 08/04/17 02:29 Dose: 125 mls/hr Levofloxacin/Dextrose 250 mg/ (Premix) 50 mls @ 50 mls/hr IV Q24H TED Insulin Aspart (Novolog) 0 unit SUBCUT Q6H TED; Protocol Last Admin: 08/04/17 08:19 Dose: Not Given Admin: 08/04/17 06:36 Dose: Not Given Sodium Chloride (Saline Flush) 10 ml FLUSH ASDIRECTED PRN PRN Reason: Keep Vein Open Last Admin: 08/03/17 23:23 Dose: 10 ml Sodium Chloride (Saline Flush) 2.5 ml FLUSH ASDIRECTED PRN PRN Reason: Keep Vein Open Last Admin: 08/03/17 23:23 Dose: 2.5 ml Assessment/Plan Comment:: This is a 89-year-old male who is being admitted secondary to urethral obstruction due to clot formation of the Carroll catheter. Patient has gross hematuria and obvious clot formation causing an obstructive process and distention of the bladder. Patient does have a urinary tract infection based on urinalysis, urine culture is pending most likely etiology for the patient's obstructive processes urinary tract infection resulting in inflammation of bladder vessels that tend to bleed. Patient has had this in the past and similarly he will have a urinary tract infection was results in inflammation of those blood vessels of the bladder wall resulting in gross hematuria. #1. Pubic tenderness, urethral obstructive process, clot formation of Carroll catheter, gross hematuria in the setting of a urinary tract infection based upon urine analysis -Patient is placed on Levaquin 500 mg, patient will require three-way Carroll catheter, repeat flushing manually to eliminate clot formation and allow for appropriate flow of urine. #2. Anemia in the setting of gross hematuria stable -Vital signs stable, hemodynamically stable, continue to observe status. #3. Recheck infection seen on urinalysis Levaquin in place for empirical antimicrobial coverage, urine culture obtained and sent
[2017-08-04 15:56] VITALS: BP 109/53
[2017-08-04] MEDS ORDERED: Levofloxacin/Dextrose 5%-Water 250 MG in Premix Bag 1 BAG IV SCH (22:00)
== END 2017-08-04 18:28 ==
LOC: MW.ED 19:57 → MW.MS 22:54
PROVIDERS: ADMIT Internal Medicine; ATTEND Internal Medicine
DX: N13.9 Obstructive and reflux uropathy, unspecified (principal); T83.098A Other mechanical complication of other urinary catheter, initial encounter; N39.0 Urinary tract infection, site not specified; D64.9 Anemia, unspecified; I10 Essential (primary) hypertension; E78.00 Pure hypercholesterolemia, unspecified; N40.0 Benign prostatic hyperplasia without lower urinary tract symptoms; E03.9 Hypothyroidism, unspecified; E11.9 Type 2 diabetes mellitus without complications; F03.90 Unspecified dementia, unspecified severity, without behavioral disturbance, psychotic disturbance, mood disturbance, and anxiety; Z79.82 Long term (current) use of aspirin; Z79.899 Other long term (current) drug therapy; Z87.891 Personal history of nicotine dependence; Z79.4 Long term (current) use of insulin
CPT/HCPCS: 36415; 51702; 80048; 80053; 81001; 82962; 85025; 85610; 87086; 96361; 96365; 99285; G0378; J1956; J7040; 99284

== ENCOUNTER 2017-08-31 11:20 | Inpatient (IN) | payer MEDICARE, BC ==
--- NOTE | 2017-08-31 11:35 | EDM.PDOC ---
<Duane Tyler J - Last Filed: 08/31/17 11:32> ED HPI GENERAL MEDICAL PROBLEM - General Chief Complaint: Genitourinary Problem Stated Complaint: BLEEDING FROM CATHETER Time Seen by Provider: 08/31/17 11:22 - History of Present Illness INITIAL COMMENTS - FREE TEXT/NARRATIVE: HISTORY AND PHYSICAL: History of present illness: Patient's an 89-year-old white male who presents from home with an indwelling Carroll catheter was placed for hematuria secondary to urinary tract infection that did ultimately require transfusion who was doing well until today when he developed recurrence of hematuria home health nurse was concerned about his blood count with his recent history patient has no complaints he is of advanced years and is history is somewhat limited as no reported fever chills nausea vomiting chest pain shortness of breath or other concerns Review of systems: As per history of present illness and below otherwise all systems reviewed and negative. Past medical history: As per history of present illness and as reviewed below otherwise noncontributory. Surgical history: As per history of present illness and as reviewed below otherwise noncontributory. Social history: No reported history of drug or alcohol abuse. Family history: As per history of present illness and as reviewed below otherwise noncontributory. Physical exam: HEENT: Atraumatic, normocephalic, pupils reactive, negative for conjunctival pallor or scleral icterus, mucous membranes moist, throat clear, neck supple, nontender, trachea midline. Lungs: Coarse bilaterally, breath sounds equal bilaterally, chest nontender. Heart: S1S2, regular, negative for clicks, rubs, or JVD. Abdomen: Soft, nondistended, nontender. Negative for masses or hepatosplenomegaly. Negative for costovertebral tenderness. Pelvis: Stable nontender. Genitourinary: Carroll catheter in place with gross hematuria without clots Rectal: Deferred. Extremities: Atraumatic, negative for cords or calf pain. Neurovascular unremarkable. Neuro: Awake, alert, follows commands moves all extremities limited but grossly nonfocal exam Diagnostics: CBC CMP PT/INR UA urine culture and sensitivity chest x-ray EKG Therapeutics: Saline lock Carroll catheter lavage to clear Impression: #1 gross hematuria #2 indwelling Carroll catheter Definitive disposition and diagnosis as appropriate pending reevaluation and review of above. - Related Data Allergies Allergy/AdvReac Type Severity Reaction Status Date / Time No Known Allergies Allergy Verified 08/31/17 11:30 Home Meds: Home Meds Allopurinol [Zyloprim] 100 mg PO DAILY 03/22/17 [History] Levothyroxine Sodium [Levo-T] 50 mcg PO DAILY 03/22/17 [History] Sertraline HCl 25 mg PO DAILY 03/22/17 [History] amLODIPine [Norvasc] 5 mg PO DAILY #30 tablet 03/24/17 [Rx] Albuterol Sulfate 5 mg IH Q4H PRN 05/19/17 [History] Aspirin 81 mg PO DAILY 30 Days #30 tab.chew 05/21/17 [Rx] atorvaSTATin [Lipitor] 40 mg PO Q24H 30 Days #30 tablet 05/21/17 [Rx] Tamsulosin HCl [Flomax] 0.4 mg PO BEDTIME 08/03/17 [History] Levofloxacin/Dextrose 5%-Water [Levaquin in D5W 250 MG/50 ML] 250 mg IV Q24H bag 08/04/17 [Rx] Past Medical History HEENT History: Reports: Hard of Hearing, Impaired Vision Cardiovascular History: Reports: High Cholesterol, Hypertension, Other (See Below) Other Cardiovascular History: hypotension with TIAs Respiratory History: Reports: Other (See Below) Other Respiratory History: emphysema; 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 Gastrointestinal History: Reports: None Genitourinary History: Reports: BPH, Other (See Below) Musculoskeletal History: Reports: Fracture, Gout, Other (See Below) Other Musculoskeletal History: cervical fracture Neurological History: Reports: Head Trauma, TIA Psychiatric History: Reports: None Endocrine/Metabolic History: Reports: Diabetes, Type II, Hypothyroidism Hematologic History: Reports: Blood Transfusion(s) Other Hematologic History: blood transfusion Immunologic History: Reports: None Oncologic (Cancer) History: Reports: Colon Dermatologic History: Reports: None - Infectious Disease History Infectious Disease History: Reports: None - Past Surgical History Head Surgeries/Procedures: Reports: None HEENT Surgical History: Reports: Cataract Surgery Cardiovascular Surgical History: Reports: None Respiratory Surgical History: Reports: None GI Surgical History: Reports: Colonoscopy Male Surgical History: Reports: TURP-Transurethral Resection of Prostate, Other (See Below) Endocrine Surgical History: Reports: None Neurological Surgical History: Reports: None Musculoskeletal Surgical History: Reports: None Dermatological Surgical History: Reports: None Social & Family History - Family History Family Medical History: Noncontributory - Tobacco Use Smoking Status *Q: Former Smoker Used Tobacco, but Quit: Yes Month/Year Tobacco Last Used: 1997 Second Hand Smoke Exposure: No - Caffeine Use Caffeine Use: Reports: Coffee - Alcohol Use Days Per Week of Alcohol Use: 0 - Recreational Drug Use Recreational Drug Use: No - Living Situation & Occupation Living situation: Reports: with Family Occupation: Retired ED ROS GENERAL - Review of Systems Review Of Systems: ROS reveals no pertinent complaints other than HPI. ED EXAM, GENERAL - Physical Exam Exam: See Below (The dictation) Course - Vital Signs Last Recorded V/S: Last Vital Signs Temp 97.4 F 08/31/17 11:32 Pulse 56 L 08/31/17 12:35 Resp 20 08/31/17 12:35 BP 92/40 L 08/31/17 12:35 Pulse Ox 94 L 08/31/17 12:35 - Orders/Labs/Meds Orders: Active Orders 24 hr Category Date Time Status EKG Documentation Completion [RC] STAT Care 08/31/17 11:35 Active CULTURE BLOOD [BC] Stat Lab 08/31/17 13:03 Ordered CULTURE BLOOD [BC] Stat Lab 08/31/17 13:03 Ordered CULTURE URINE [RM] Stat Lab 08/31/17 12:25 Ordered LACTIC ACID,WHOLE BLOOD [BG] Stat Lab 08/31/17 13:03 Ordered UA W/MICROSCOPIC [URIN] Stat Lab 08/31/17 12:25 Ordered Piperacillin/Tazobactam [Zosyn] 2.25 gm Med 08/31/17 13:04 Active Sodium Chloride 0.9% [Normal Saline] 50 ml IV ONETIME Vancomycin [Vancocin] 1 gm Med 08/31/17 13:04 Active Sodium Chloride 0.9% [Normal Saline] 250 ml IV ONETIME Blood Culture x2 Reflex Set [OM.PC] Stat Oth 08/31/17 13:03 Ordered Medication Orders Piperacillin Sod/Tazobactam (Sod 2.25 gm/ Sodium Chloride) 50 mls @ 100 mls/hr IV ONETIME ONE Stop: 08/31/17 13:33 Vancomycin HCl 1 gm/ Sodium (Chloride) 250 mls @ 250 mls/hr IV ONETIME ONE Stop: 08/31/17 14:03 Labs: Laboratory Tests 05/01/18 05/01/18 05/01/18 Range/Units 11:41 11:41 11:41 WBC 6.24 (4.0-11.0) K/uL RBC 3.33 L (4.50-5.90) M/uL Hgb 10.0 L (13.0-17.0) g/dL Hct 31.0 L (38.0-50.0) % MCV 93.1 (80.0-98.0) fL MCH 30.0 (27.0-32.0) pg MCHC 32.3 (31.0-37.0) g/dL RDW Std Deviation 53.4 (28.0-62.0) fl RDW Coeff of Pura 16 H (11.0-15.0) % Plt Count 184 (150-400) K/uL MPV 8.70 (7.40-12.00) fL Neut % (Auto) 75.1 (48.0-80.0) % Lymph % (Auto) 12.2 L (16.0-40.0) % Sullivan % (Auto) 8.2 (0.0-15.0) % Eos % (Auto) 4.3 (0.0-7.0) % Baso % (Auto) 0.2 (0.0-1.5) % Neut # (Auto) 4.7 (1.4-5.7) K/uL Lymph # (Auto) 0.8 (0.6-2.4) K/uL Sullivan # (Auto) 0.5 (0.0-0.8) K/uL Eos # (Auto) 0.3 (0.0-0.7) K/uL Baso # (Auto) 0.0 (0.0-0.1) K/uL Nucleated RBC % 0.0 /100WBC Nucleated RBCs # 0 K/uL INR 1.12 Sodium 132 L (136-148) mmol/L Potassium 4.0 (3.5-5.1) mmol/L Chloride 99 (98-107) mmol/L Carbon Dioxide 25.0 (21.0-32.0) mmol/L BUN 44 H (7.0-18.0) mg/dL Creatinine 1.6 H (0.8-1.3) mg/dL Est Cr Clr Drug Dosing TNP Estimated GFR (MDRD) 40.9 ml/min Glucose 151 H (74-106) mg/dL Calcium 8.6 (8.5-10.1) mg/dL Total Bilirubin 0.4 (0.2-1.0) mg/dL AST 25 (15-37) IU/L ALT 26 (14-63) IU/L Alkaline Phosphatase 115 (46-116) U/L Total Protein 6.2 L (6.4-8.2) g/dL Albumin 2.3 L (3.4-5.0) g/dL Globulin 3.9 H (2.0-3.5) g/dL Albumin/Globulin Ratio 0.6 L (1.3-2.8) Urine Color Urine Appearance Urine pH (5.0-8.0) Ur Specific [place] (1.001-1.035) Urine Protein (NEGATIVE) mg/dL Urine Glucose (UA) (NEGATIVE) mg/dL Urine Ketones (NEGATIVE) mg/dL Urine Occult Blood (NEGATIVE) Urine Nitrite (NEGATIVE) Urine Bilirubin (NEGATIVE) Urine Ictotest Urine Urobilinogen (<2.0) EU/dL Ur Leukocyte Esterase (NEGATIVE) Urine RBC (0-2/HPF) Urine WBC (0-5/HPF) Ur Epithelial Cells (NONE-FEW) Urine Bacteria (NEGATIVE) 08/31/17 Range/Units 12:25 WBC (4.0-11.0) K/uL RBC (4.50-5.90) M/uL Hgb (13.0-17.0) g/dL Hct (38.0-50.0) % MCV (80.0-98.0) fL MCH (27.0-32.0) pg MCHC (31.0-37.0) g/dL RDW Std Deviation (28.0-62.0) fl RDW Coeff of Pura (11.0-15.0) % Plt Count (150-400) K/uL MPV (7.40-12.00) fL Neut % (Auto) (48.0-80.0) % Lymph % (Auto) (16.0-40.0) % Sullivan % (Auto) (0.0-15.0) % Eos % (Auto) (0.0-7.0) % Baso % (Auto) (0.0-1.5) % Neut # (Auto) (1.4-5.7) K/uL Lymph # (Auto) (0.6-2.4) K/uL Sullivan # (Auto) (0.0-0.8) K/uL Eos # (Auto) (0.0-0.7) K/uL Baso # (Auto) (0.0-0.1) K/uL Nucleated RBC % /100WBC Nucleated RBCs # K/uL INR Sodium (136-148) mmol/L Potassium (3.5-5.1) mmol/L Chloride (98-107) mmol/L Carbon Dioxide (21.0-32.0) mmol/L BUN (7.0-18.0) mg/dL Creatinine (0.8-1.3) mg/dL Est Cr Clr Drug Dosing Estimated GFR (MDRD) ml/min Glucose (74-106) mg/dL Calcium (8.5-10.1) mg/dL Total Bilirubin (0.2-1.0) mg/dL AST (15-37) IU/L ALT (14-63) IU/L Alkaline Phosphatase (46-116) U/L Total Protein (6.4-8.2) g/dL Albumin (3.4-5.0) g/dL Globulin (2.0-3.5) g/dL Albumin/Globulin Ratio (1.3-2.8) Urine Color RED Urine Appearance CLOUDY Urine pH 7.0 (5.0-8.0) Ur Specific [place] 1.010 (1.001-1.035) Urine Protein >=300 (NEGATIVE) mg/dL Urine Glucose (UA) 100 H (NEGATIVE) mg/dL Urine Ketones 15 H (NEGATIVE) mg/dL Urine Occult Blood LARGE H (NEGATIVE) Urine Nitrite POSITIVE H (NEGATIVE) Urine Bilirubin MODERATE H (NEGATIVE) Urine Ictotest NEGATIVE Urine Urobilinogen 2.0 H (<2.0) EU/dL Ur Leukocyte Esterase MODERATE (NEGATIVE) Urine RBC TOO NUMBEROUS TO CT (0-2/HPF) Urine WBC 5-8 (0-5/HPF) Ur Epithelial Cells RARE (NONE-FEW) Urine Bacteria FEW (NEGATIVE) Meds: Medications Generic Name Dose Route Start Last Admin Trade Name Freq PRN Reason Stop Dose Admin Piperacillin Sod/Tazobactam 50 mls @ 100 mls/hr 08/31/17 13:04 Sod 2.25 gm/ Sodium Chloride IV 08/31/17 13:33 ONETIME ONE Vancomycin HCl 1 gm/ Sodium 250 mls @ 250 mls/hr 08/31/17 13:04 Chloride IV 08/31/17 14:03 ONETIME ONE Departure - Departure Disposition: Admitted As Inpatient 68 Clinical Impression: Hypotension, UTI (urinary tract infection) - Discharge Information Forms: ED Department Discharge - My Orders Last 24 Hours: My Active Orders 08/31/17 13:03 CULTURE BLOOD [BC] Stat CULTURE BLOOD [BC] Stat LACTIC ACID,WHOLE BLOOD [BG] Stat Blood Culture x2 Reflex Set [OM.PC] Stat 08/31/17 13:04 Piperacillin/Tazobactam [Zosyn] 2.25 gm Sodium Chloride 0.9% [Normal Saline] 50 ml IV ONETIME Vancomycin [Vancocin] 1 gm Sodium Chloride 0.9% [Normal Saline] 250 ml IV ONETIME - Assessment/Plan Last 24 Hours: My Active Orders 08/31/17 13:03 CULTURE BLOOD [BC] Stat CULTURE BLOOD [BC] Stat LACTIC ACID,WHOLE BLOOD [BG] Stat Blood Culture x2 Reflex Set [OM.PC] Stat 08/31/17 13:04 Piperacillin/Tazobactam [Zosyn] 2.25 gm Sodium Chloride 0.9% [Normal Saline] 50 ml IV ONETIME Vancomycin [Vancocin] 1 gm Sodium Chloride 0.9% [Normal Saline] 250 ml IV ONETIME <Yazan Schafer - Last Filed: 08/31/17 13:17> ED HPI GENERAL MEDICAL PROBLEM - History of Present Illness INITIAL COMMENTS - FREE TEXT/NARRATIVE: I received the patient in sign out and the following lab, and ultimately disposition, I agree with evaluation above During the interim the patient's blood pressure did drop during her to a systolic of 90 diastolic of 40 he responded well to a small fluid bolus however raises concern for sepsis with the obvious UTI that he has a did add a lactic acid and blood cultures have started Zosyn and vancomycin and will be admitting to Dr. Ramos on an inpatient basis to rule out sepsis Patient is hemodynamically stable at this time in no distress HEENT grossly within normal limits Chest clear CV regular Abdomen benign Ext atraumatic strength 5 out of 5 TABULATING CLERK alert nonfocal Lab as below Blood cultures pending Lactic blood gas pending Assessment Rule out sepsis Episodic hypotension Plan Vancomycin/ Zosyn Admit Dr. Ramos Departure - Departure Time of Disposition: 13:17 Condition: Fair
--- NOTE | 2017-08-31 12:24 | CR ---
EXAMINATION: Portable chest radiograph. HISTORY: Shortness of breath. FINDINGS: The trachea is midline. The cardiomediastinal silhouette is within normal limits. No pulmonary infilt rates, effusions or pneumothorax. Mild bibasilar atelectasis, left greater than right. Osseous structures appear osteopenic. Degenerative changes noted within the shoulders. IMPRESSION: Bibasilar atelectasis, left greater than right, without acute cardiopulmonary findings.
[2017-08-31 12:25] LABS: CHLORIDE,CL 99 mmol/L (98-107); SODIUM,NA 132 mmol/L (136-148)
[2017-08-31] MEDS ORDERED: Piperacillin/Tazobactam 2.25 GM in Sodium Chloride 0.9% 50 ML IV ONE (13:04)
[2017-08-31] MEDS ORDERED: Sodium Chloride 0.9% 1,000 ML IV ONE (13:18)
[2017-08-31] MEDS ORDERED: Ondansetron 4 MG/2 ML SDV IVPUSH PRN (13:55)
--- NOTE | 2017-08-31 14:09 | PCM.HP ---
H&P History of Present Illness - General Date of Service: 08/31/17 Admit Problem/Dx: Admission Diagnosis/Problem Admission Diagnosis/Problem UTI (urinary tract infection) due to urinary indwelling catheter Source of Information: Old Records. No: Patient (Patient unclear why he was brought to the ED, poor historian. No family with him at this time. 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 Carlos is in room by himself, no family with him. Per ED mD report, home health noted hematuria today and encouraged them to be evaluated in the ED for this. Carlos reports he is feeling well, no chest pain, dyspnea, palpitations or abdominal pain. Denies penile pain or bladder pain. In the ED no leukocytosis noted, hgb 10.0, Na 132. BUN 44 Cr 1.6, which is baseline. Lactate 1.3. HR 50s, BP initially was 133/59, but during a recheck BP dipped to 92/40. He was given IVFs with elevation to 118/80s. UA obtained with shows pyruia, + nitrites, moderate leukocyte esterase, few bacteria. Bowen was irrigated, clots noted and pink return of urine then noted. He will be admitted for UTI, gross hematuria and possible sepsis. PCP, Dr Cisneros. He was recently transferred to Dr Eaton, Urology at [facility] beginning of August for similar episode. He was transfused a total of 5 units PRBCs and bowen irrigated per Dr Eaton, upon review of records on [facility] - Related Data Allergies/Adverse Reactions: Allergies Allergy/AdvReac Type Severity Reaction Status Date / Time No Known Allergies Allergy Verified 08/31/17 11:30 Home Medications: Home Meds Allopurinol [Zyloprim] 100 mg PO DAILY 03/22/17 [History] Levothyroxine Sodium [Levo-T] 50 mcg PO DAILY 03/22/17 [History] Sertraline HCl 25 mg PO DAILY 11/20/17 [History] amLODIPine [Norvasc] 5 mg PO DAILY #30 tablet 03/24/17 [Rx] Albuterol Sulfate 5 mg IH Q4H PRN 05/19/17 [History] Aspirin 81 mg PO DAILY 30 Days #30 tab.chew 05/21/17 [Rx] Tamsulosin HCl [Flomax] 0.4 mg PO BEDTIME 08/03/17 [History] atorvaSTATin [Lipitor] 20 mg PO DAILY 08/31/17 [History] Past Medical History HEENT History: Reports: Hard of Hearing, Impaired Vision Cardiovascular History: Reports: High Cholesterol, Hypertension, Other (See Below) Other Cardiovascular History: hypotension with TIAs Respiratory History: Reports: Other (See Below) Other Respiratory History: emphysema; 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 Gastrointestinal History: Reports: None Genitourinary History: Reports: BPH, UTI, Recurrent, Other (See Below) ( recurrent hematuria.) Musculoskeletal History: Reports: Fracture, Gout, Other (See Below) Other Musculoskeletal History: cervical fracture Neurological History: Reports: Head Trauma, TIA Psychiatric History: Reports: Dementia Endocrine/Metabolic History: Reports: Diabetes, Type II, Hypothyroidism Hematologic History: Reports: Blood Transfusion(s) Immunologic History: Reports: None Oncologic (Cancer) History: Reports: Colon Dermatologic History: Reports: None - Infectious Disease History Infectious Disease History: Reports: None - Past Surgical History Head Surgeries/Procedures: Reports: None HEENT Surgical History: Reports: Cataract Surgery Cardiovascular Surgical History: Reports: None Respiratory Surgical History: Reports: None GI Surgical History: Reports: Colonoscopy Male Surgical History: Reports: TURP-Transurethral Resection of Prostate, Other (See Below) Endocrine Surgical History: Reports: None Neurological Surgical History: Reports: None Musculoskeletal Surgical History: Reports: None Dermatological Surgical History: Reports: None Social & Family History - Family History Family Medical History: Noncontributory - Tobacco Use Smoking Status *Q: Former Smoker Used Tobacco, but Quit: Yes Month/Year Tobacco Last Used: 1997 Second Hand Smoke Exposure: No - Caffeine Use Caffeine Use: Reports: Coffee - Alcohol Use Days Per Week of Alcohol Use: 0 - Recreational Drug Use Recreational Drug Use: No - Living Situation & Occupation Living situation: Reports: with Family Occupation: Retired H&P Review of Systems - Review of Systems: Review Of Systems: See Below (Patient is poor historian, denies any current problems) General: Reports: No Symptoms. Denies: Fever, Chills, Malaise, Weakness HEENT: Reports: No Symptoms. Denies: Headaches, Sinus Congestion Pulmonary: Reports: No Symptoms. Denies: Shortness of Breath Cardiovascular: Reports: No Symptoms. Denies: Chest Pain, Palpitations, Edema Gastrointestinal: Reports: No Symptoms. Denies: Abdominal Pain, Nausea, Vomiting Genitourinary: Reports: Hematuria. Denies: Retention Musculoskeletal: Reports: No Symptoms Skin: Reports: No Symptoms Psychiatric: Reports: No Symptoms Neurological: Reports: No Symptoms Hematologic/Lymphatic: Reports: No Symptoms Immunologic: Reports: No Symptoms Exam - Exam Exam: See Below - Vital Signs Vital Signs: Last Vital Signs Temp 97.4 F 08/31/17 11:32 Pulse 58 L 08/31/17 13:32 Resp 16 08/31/17 13:32 BP 118/49 L 08/31/17 13:32 Pulse Ox 96 08/31/17 13:32 - Exam General: Alert, Cooperative. No: Oriented (disoriented to time) HEENT: Conjunctiva Clear, Mucosa Moist & [place], Posterior Pharynx Clear Neck: Supple, Trachea Midline, 2 Lungs: Clear to Auscultation, Normal Respiratory Effort Cardiovascular: Regular Rate, Regular Rhythm, Normal S1, Normal S2 GI/Abdominal Exam: Normal Bowel Sounds, Soft, Non-Tender, No Organomegaly, No Distention, No Abnormal Bruit, No Mass, Pelvis Stable (Male) Exam: Other (gross hematuria with clots noted in bowen tubing. ). No : Scrotal Swelling, Scrotum Tenderness (L), Scrotum Tenderness (R), Testicular Mass Extremities: Normal Inspection, Normal Range of Motion, Non-Tender, No Pedal Edema, Normal Capillary Refill Neuro Extensive - Mental Status: Alert, Normal Mood/Affect, Normal Cognition. No: Oriented x3 Neuro Extensive - Motor, Sensory, Reflexes: CN II-XII Intact Psychiatric: Alert, Normal Affect, Normal Mood - Patient Data Lab Results Last 24 hrs: Laboratory Results - last 24 hr 08/31/17 08/31/17 08/31/17 Range/Units 11:41 11:41 11:41 WBC 6.24 (4.0-11.0) K/uL RBC 3.33 L (4.50-5.90) M/uL Hgb 10.0 L (13.0-17.0) g/dL Hct 31.0 L (38.0-50.0) % MCV 93.1 (80.0-98.0) fL MCH 30.0 (27.0-32.0) pg MCHC 32.3 (31.0-37.0) g/dL RDW Std Deviation 53.4 (28.0-62.0) fl RDW Coeff of Pura 16 H (11.0-15.0) % Plt Count 184 (150-400) K/uL MPV 8.70 (7.40-12.00) fL Neut % (Auto) 75.1 (48.0-80.0) % Lymph % (Auto) 12.2 L (16.0-40.0) % Sebastian % (Auto) 8.2 (0.0-15.0) % Eos % (Auto) 4.3 (0.0-7.0) % Baso % (Auto) 0.2 (0.0-1.5) % Neut # (Auto) 4.7 (1.4-5.7) K/uL Lymph # (Auto) 0.8 (0.6-2.4) K/uL Sebastian # (Auto) 0.5 (0.0-0.8) K/uL Eos # (Auto) 0.3 (0.0-0.7) K/uL Baso # (Auto) 0.0 (0.0-0.1) K/uL Nucleated RBC % 0.0 /100WBC Nucleated RBCs # 0 K/uL INR 1.12 Lactate (0.20-2.00) mmol/L Sodium 132 L (136-148) mmol/L Potassium 4.0 (3.5-5.1) mmol/L Chloride 99 (98-107) mmol/L Carbon Dioxide 25.0 (21.0-32.0) mmol/L BUN 44 H (7.0-18.0) mg/dL Creatinine 1.6 H (0.8-1.3) mg/dL Est Cr Clr Drug Dosing TNP Estimated GFR (MDRD) 40.9 ml/min Glucose 151 H (74-106) mg/dL Calcium 8.6 (8.5-10.1) mg/dL Total Bilirubin 0.4 (0.2-1.0) mg/dL AST 25 (15-37) IU/L ALT 26 (14-63) IU/L Alkaline Phosphatase 115 (46-116) U/L Total Protein 6.2 L (6.4-8.2) g/dL Albumin 2.3 L (3.4-5.0) g/dL Globulin 3.9 H (2.0-3.5) g/dL Albumin/Globulin Ratio 0.6 L (1.3-2.8) Urine Color Urine Appearance Urine pH (5.0-8.0) Ur Specific [place] (1.001-1.035) Urine Protein (NEGATIVE) mg/dL Urine Glucose (UA) (NEGATIVE) mg/dL Urine Ketones (NEGATIVE) mg/dL Urine Occult Blood (NEGATIVE) Urine Nitrite (NEGATIVE) Urine Bilirubin (NEGATIVE) Urine Ictotest Urine Urobilinogen (<2.0) EU/dL Ur Leukocyte Esterase (NEGATIVE) Urine RBC (0-2/HPF) Urine WBC (0-5/HPF) Ur Epithelial Cells (NONE-FEW) Urine Bacteria (NEGATIVE) 08/31/17 08/31/17 Range/Units 12:25 13:12 WBC (4.0-11.0) K/uL RBC (4.50-5.90) M/uL Hgb (13.0-17.0) g/dL Hct (38.0-50.0) % MCV (80.0-98.0) fL MCH (27.0-32.0) pg MCHC (31.0-37.0) g/dL RDW Std Deviation (28.0-62.0) fl RDW Coeff of Pura (11.0-15.0) % Plt Count (150-400) K/uL MPV (7.40-12.00) fL Neut % (Auto) (48.0-80.0) % Lymph % (Auto) (16.0-40.0) % Sebastian % (Auto) (0.0-15.0) % Eos % (Auto) (0.0-7.0) % Baso % (Auto) (0.0-1.5) % Neut # (Auto) (1.4-5.7) K/uL Lymph # (Auto) (0.6-2.4) K/uL Sebastian # (Auto) (0.0-0.8) K/uL Eos # (Auto) (0.0-0.7) K/uL Baso # (Auto) (0.0-0.1) K/uL Nucleated RBC % /100WBC Nucleated RBCs # K/uL INR Lactate 1.3 (0.20-2.00) mmol/L Sodium (136-148) mmol/L Potassium (3.5-5.1) mmol/L Chloride (98-107) mmol/L Carbon Dioxide (21.0-32.0) mmol/L BUN (7.0-18.0) mg/dL Creatinine (0.8-1.3) mg/dL Est Cr Clr Drug Dosing Estimated GFR (MDRD) ml/min Glucose (74-106) mg/dL Calcium (8.5-10.1) mg/dL Total Bilirubin (0.2-1.0) mg/dL AST (15-37) IU/L ALT (14-63) IU/L Alkaline Phosphatase (46-116) U/L Total Protein (6.4-8.2) g/dL Albumin (3.4-5.0) g/dL Globulin (2.0-3.5) g/dL Albumin/Globulin Ratio (1.3-2.8) Urine Color RED Urine Appearance CLOUDY Urine pH 7.0 (5.0-8.0) Ur Specific [place] 1.010 (1.001-1.035) Urine Protein >=300 (NEGATIVE) mg/dL Urine Glucose (UA) 100 H (NEGATIVE) mg/dL Urine Ketones 15 H (NEGATIVE) mg/dL Urine Occult Blood LARGE H (NEGATIVE) Urine Nitrite POSITIVE H (NEGATIVE) Urine Bilirubin MODERATE H (NEGATIVE) Urine Ictotest NEGATIVE Urine Urobilinogen 2.0 H (<2.0) EU/dL Ur Leukocyte Esterase MODERATE (NEGATIVE) Urine RBC TOO NUMBEROUS TO CT (0-2/HPF) Urine WBC 5-8 (0-5/HPF) Ur Epithelial Cells RARE (NONE-FEW) Urine Bacteria FEW (NEGATIVE) Result Diagrams: 08/31/17 11:41 08/31/17 11:41 *Q Meaningful Use (ADM) - VTE *Q VTE Pharmacological Contraindications *Q: Risk of Bleeding - Problem List (1) Urinary tract infection SNOMED Code(s): 39633007 ICD Code: N39.0 - URINARY TRACT INFECTION, SITE NOT SPECIFIED Status: Acute Current Visit: Yes Qualifiers: Urinary tract infection type: acute cystitis Hematuria presence: with hematuria Qualified Code(s): N30.01 - Acute cystitis with hematuria (2) Hematuria SNOMED Code(s): 99705760 ICD Code: R31.9 - HEMATURIA, UNSPECIFIED Status: Acute Current Visit: No (3) Renal insufficiency SNOMED Code(s): 271146960, 115336481 ICD Code: N28.9 - DISORDER OF KIDNEY AND URETER, UNSPECIFIED Status: Chronic Current Visit: No (4) BPH (benign prostatic hyperplasia) SNOMED Code(s): 052835302 ICD Code: N40.0 - BENIGN PROSTATIC HYPERPLASIA WITHOUT LOWER URINRY TRACT SYMP Status: Chronic Current Visit: No (5) DM type 2 (diabetes mellitus, type 2) SNOMED Code(s): 46168057 ICD Code: E11.9 - TYPE 2 DIABETES MELLITUS WITHOUT COMPLICATIONS Status: Chronic Priority: Medium Current Visit: No Qualifiers: Diabetes mellitus alf insulin use: without alf use Diabetes mellitus complication status: without complication Qualified Code(s): E11.9 - Type 2 diabetes mellitus without complications (6) Emphysema SNOMED Code(s): 40507337 ICD Code: J43.9 - EMPHYSEMA, UNSPECIFIED Status: Chronic Current Visit: No (7) HTN (hypertension) SNOMED Code(s): 22499581 ICD Code: I10 - ESSENTIAL (PRIMARY) HYPERTENSION Status: Chronic Current Visit: No Qualifiers: Hypertension type: essential hypertension Qualified Code(s): I10 - Essential (primary) hypertension (8) History of cervical fracture SNOMED Code(s): 590117081, 210944009 ICD Code: Z87.81 - PERSONAL HISTORY OF (HEALED) TRAUMATIC FRACTURE Status: Chronic Current Visit: No (9) Hypothyroidism SNOMED Code(s): 95972271 ICD Code: E03.9 - HYPOTHYROIDISM, UNSPECIFIED Status: Chronic Priority: Medium Current Visit: No Qualifiers: Hypothyroidism type: unspecified Qualified Code(s): E03.9 - Hypothyroidism , unspecified (10) TIA (transient ischemic attack) SNOMED Code(s): 170524209 ICD Code: G45.9 - TRANSIENT CEREBRAL ISCHEMIC ATTACK, UNSPECIFIED Status: Chronic Current Visit: No Qualifiers: Transient cerebral ischemia type: unspecified Qualified Code(s): G45.9 - Transient cerebral ischemic attack, unspecified (11) Unsteady gait SNOMED Code(s): 18163164, 068335894 ICD Code: R26.81 - UNSTEADINESS ON FEET Status: Chronic Current Visit: No Problem List Initiated/Reviewed/Updated: Yes Orders Last 24hrs: Active Orders 24 hr Category Date Time Status Admission Status [Patient Status] [ADT] Stat ADT 08/31/17 13:17 Active EKG Documentation Completion [RC] STAT Care 08/31/17 11:35 Active Intake and Output [RC] QSHIFT Care 08/31/17 13:56 Active May Shower [RC] ASDIRECTED Care 08/31/17 13:55 Active Notify Provider Consults [RC] ASDIRECTED Care 08/31/17 13:57 Active Oxygen Therapy [RC] PRN Care 08/31/17 13:55 Active Up to Chair [RC] ASDIRECTED Care 08/31/17 13:55 Active VTE/DVT Education [RC] PER UNIT ROUTINE Care 08/31/17 13:55 Active Vital Signs [RC] Q4H Care 08/31/17 13:55 Active Consult to Physician [CONS] Routine Cons 08/31/17 13:55 Active Heart Healthy Diet [DIET] Diet 08/31/17 Lunch Active BASIC METABOLIC PANEL,BMP [CHEM] AM Lab 09/01/17 05:11 Ordered BASIC METABOLIC PANEL,BMP [CHEM] AM Lab 09/02/17 05:11 Ordered BASIC METABOLIC PANEL,BMP [CHEM] AM Lab 09/03/17 05:11 Ordered CBC WITH AUTO DIFF [HEME] AM Lab 09/01/17 05:11 Ordered CBC WITH AUTO DIFF [HEME] AM Lab 09/02/17 05:11 Ordered CBC WITH AUTO DIFF [HEME] AM Lab 09/03/17 05:11 Ordered CULTURE BLOOD [BC] Stat Lab 08/31/17 13:12 Received CULTURE BLOOD [BC] Stat Lab 08/31/17 13:21 Received CULTURE URINE [RM] Stat Lab 08/31/17 12:25 Ordered HEMOGLOBIN/HEMATOCRIT,HH [HEME] Routine Lab 08/31/17 18:00 Ordered UA W/MICROSCOPIC [URIN] Stat Lab 08/31/17 12:25 Ordered Acetaminophen [Tylenol] Med 08/31/17 13:55 Ordered 650 mg PO Q4H PRN Ondansetron [Zofran] Med 08/31/17 13:55 Ordered 4 mg IVPUSH Q4H PRN Piperacillin/Tazobactam [Zosyn] 2.25 gm Med 08/31/17 19:00 Ordered Sodium Chloride 0.9% [Normal Saline] 50 ml IV Q6H Sodium Chloride 0.9% [Normal Saline] 1,000 ml Med 08/31/17 13:18 Active IV .Bolus Blood Culture x2 Reflex Set [OM.PC] Stat Oth 08/31/17 13:03 Ordered Sequential Compression Device [OM.PC] Per Unit Routine Oth 08/31/17 13:56 Ordered Resuscitation Status Routine Resus Stat 08/31/17 13:55 Ordered Medication Orders Acetaminophen (Tylenol) 650 mg PO Q4H PRN PRN Reason: Pain (mild 1-3) Sodium Chloride (Normal Saline) 1,000 mls @ 999 mls/hr IV .Bolus ONE Stop: 08/31/17 14:18 Last Infusion: 08/31/17 13:31 Dose: 125 mls/hr Admin: 08/31/17 13:15 Dose: 999 mls/hr Piperacillin Sod/Tazobactam (Sod 2.25 gm/ Sodium Chloride) 50 mls @ 100 mls/hr IV Q6H TED Ondansetron HCl (Zofran) 4 mg IVPUSH Q4H PRN PRN Reason: Nausea Assessment/Plan Comment:: This 89 year old male admitted with possible sepsis due to hypotension, UTI and gross hematuria. 1. Sepsis: lactate 1.3, no fevers or leukocytosis. Given 1 L bolus in ED with improvement in BP. Has hx of orthostatic BPs. BC and UC pending. CXR negative for acute cardiopulmonary process. 2. UTI: Give Vancomycin and Zosyn in ED. Will discontinue Vancomycin. Continue Zosyn at renal dosing. UC pending. Bowen in place 3. Hematuria: Will consult Dr Mena. May need to change catheter due to UTI. Irrigation for clots. Will await Dr Mena consult. Monitor HH this evening. 4. HTN: Hold home medications due to hypotension in ED. 5. DM type 2: Stable, diet controlled. Will monitor. VTE prophylaxis: SCDs only due to hematuria Dispo: 2-3 days pending improvement.
[2017-08-31] MEDS ORDERED: Albuterol 0.083% 2.5 MG/3 ML Neb Soln NEB PRN (14:21)
[2017-08-31] MEDS ORDERED: Hydrocolloid Dressing 4x4 Bandage TOP SCH (16:00)
[2017-08-31] MEDS ORDERED: Gentamicin 40 MG/ML 2 ML Vial SCH (17:00)
[2017-08-31] MEDS: Insulin Aspart 100 Units/ML 3 ML Pen SUBCUT SCH (17:16)
[2017-08-31] MEDS: Piperacillin/Tazobactam 2.25 GM in Sodium Chloride 0.9% 50 ML IV SCH (18:35)
[2017-08-31] MEDS: Nystatin Topical Powder 15 GM Bottle TOP SCH ×2 (18:46→23:21)
[2017-08-31] MEDS: Acetaminophen 325 MG Tab PO PRN (21:02)
[2017-09-01] MEDS: Piperacillin/Tazobactam 2.25 GM in Sodium Chloride 0.9% 50 ML IV SCH ×2 (00:22→06:04)
[2017-09-01] MEDS: Nystatin Topical Powder 15 GM Bottle TOP SCH ×4 (06:06→23:37)
[2017-09-01] MEDS: Insulin Aspart 100 Units/ML 3 ML Pen SUBCUT SCH ×3 (06:30→18:07)
[2017-09-01] MEDS ORDERED: Levothyroxine 50 MCG Tab PO SCH ×2 (07:30→21:00)
[2017-09-01] MEDS ORDERED: atorvaSTATin 40 MG Tab PO SCH (09:00)
[2017-09-01] MEDS ORDERED: Allopurinol 100 MG Tab PO SCH (09:00)
[2017-09-01] MEDS ORDERED: Sertraline 25 MG Tab PO SCH (09:00)
--- NOTE | 2017-09-01 12:07 | PCM.PN ---
- General Info Date of Service: 09/01/17 Admission Dx/Problem (Free Text): Admission Diagnosis/Problem Admission Diagnosis/Problem UTI (urinary tract infection) due to urinary indwelling catheter Subjective Update: Feeling good this morning, no complaints. No chest pain or shortness of breath. and daughter at bedside, report he looks "great". No concerns Functional Status: Reports: Pain Controlled, Tolerating Diet, Ambulating, Urinating - Review of Systems General: Reports: No Symptoms Pulmonary: Reports: No Symptoms. Denies: Shortness of Breath Cardiovascular: Reports: No Symptoms. Denies: Chest Pain Gastrointestinal: Reports: No Symptoms. Denies: Abdominal Pain, Nausea, Vomiting Genitourinary: Reports: No Symptoms Skin: Reports: No Symptoms Neurological: Reports: No Symptoms Psychiatric: Reports: No Symptoms - Patient Data Vitals - Most Recent: Last Vital Signs Temp 98.2 F 09/01/17 08:00 Pulse 63 09/01/17 08:00 Resp 16 09/01/17 08:00 BP 108/45 L 09/01/17 08:00 Pulse Ox 96 09/01/17 08:00 Weight - Most Recent: 74.616 kg I&O - Last 24 Hours: Intake & Output 08/31/17 09/01/17 09/01/17 22:59 06:59 14:59 Intake Total 200 1100 Output Total 1100 2700 Balance -900 -1600 Lab Results Last 24 Hours: Laboratory Results - last 24 hr 08/31/17 08/31/17 08/31/17 Range/Units 11:41 11:41 12:25 WBC (4.0-11.0) K/uL RBC (4.50-5.90) M/uL Hgb (13.0-17.0) g/dL Hct (38.0-50.0) % MCV (80.0-98.0) fL MCH (27.0-32.0) pg MCHC (31.0-37.0) g/dL RDW Std Deviation (28.0-62.0) fl RDW Coeff of Pura (11.0-15.0) % Plt Count (150-400) K/uL MPV (7.40-12.00) fL Neut % (Auto) (48.0-80.0) % Lymph % (Auto) (16.0-40.0) % Deuel % (Auto) (0.0-15.0) % Eos % (Auto) (0.0-7.0) % Baso % (Auto) (0.0-1.5) % Neut # (Auto) (1.4-5.7) K/uL Lymph # (Auto) (0.6-2.4) K/uL Deuel # (Auto) (0.0-0.8) K/uL Eos # (Auto) (0.0-0.7) K/uL Baso # (Auto) (0.0-0.1) K/uL Nucleated RBC % /100WBC Nucleated RBCs # K/uL INR 1.12 Lactate (0.20-2.00) mmol/L Sodium 132 L (136-148) mmol/L Potassium 4.0 (3.5-5.1) mmol/L Chloride 99 (98-107) mmol/L Carbon Dioxide 25.0 (21.0-32.0) mmol/L BUN 44 H (7.0-18.0) mg/dL Creatinine 1.6 H (0.8-1.3) mg/dL Est Cr Clr Drug Dosing TNP Estimated GFR (MDRD) 40.9 ml/min Glucose 151 H (74-106) mg/dL POC Glucose (60-110) mg/dL Calcium 8.6 (8.5-10.1) mg/dL Total Bilirubin 0.4 (0.2-1.0) mg/dL AST 25 (15-37) IU/L ALT 26 (14-63) IU/L Alkaline Phosphatase 115 (46-116) U/L Total Protein 6.2 L (6.4-8.2) g/dL Albumin 2.3 L (3.4-5.0) g/dL Globulin 3.9 H (2.0-3.5) g/dL Albumin/Globulin Ratio 0.6 L (1.3-2.8) Urine Color RED Urine Appearance CLOUDY Urine pH 7.0 (5.0-8.0) Ur Specific [place] 1.010 (1.001-1.035) Urine Protein >=300 (NEGATIVE) mg/dL Urine Glucose (UA) 100 H (NEGATIVE) mg/dL Urine Ketones 15 H (NEGATIVE) mg/dL Urine Occult Blood LARGE H (NEGATIVE) Urine Nitrite POSITIVE H (NEGATIVE) Urine Bilirubin MODERATE H (NEGATIVE) Urine Ictotest NEGATIVE Urine Urobilinogen 2.0 H (<2.0) EU/dL Ur Leukocyte Esterase MODERATE (NEGATIVE) Urine RBC TOO NUMBEROUS TO CT (0-2/HPF) Urine WBC 5-8 (0-5/HPF) Ur Epithelial Cells RARE (NONE-FEW) Urine Bacteria FEW (NEGATIVE) 08/31/17 08/31/17 08/31/17 Range/Units 13:12 16:12 18:00 WBC (4.0-11.0) K/uL RBC (4.50-5.90) M/uL Hgb 9.7 L (13.0-17.0) g/dL Hct 29.3 L (38.0-50.0) % MCV (80.0-98.0) fL MCH (27.0-32.0) pg MCHC (31.0-37.0) g/dL RDW Std Deviation (28.0-62.0) fl RDW Coeff of Pura (11.0-15.0) % Plt Count (150-400) K/uL MPV (7.40-12.00) fL Neut % (Auto) (48.0-80.0) % Lymph % (Auto) (16.0-40.0) % Deuel % (Auto) (0.0-15.0) % Eos % (Auto) (0.0-7.0) % Baso % (Auto) (0.0-1.5) % Neut # (Auto) (1.4-5.7) K/uL Lymph # (Auto) (0.6-2.4) K/uL Deuel # (Auto) (0.0-0.8) K/uL Eos # (Auto) (0.0-0.7) K/uL Baso # (Auto) (0.0-0.1) K/uL Nucleated RBC % /100WBC Nucleated RBCs # K/uL INR Lactate 1.3 (0.20-2.00) mmol/L Sodium (136-148) mmol/L Potassium (3.5-5.1) mmol/L Chloride (98-107) mmol/L Carbon Dioxide (21.0-32.0) mmol/L BUN (7.0-18.0) mg/dL Creatinine (0.8-1.3) mg/dL Est Cr Clr Drug Dosing Estimated GFR (MDRD) ml/min Glucose (74-106) mg/dL POC Glucose 83 (60-110) mg/dL Calcium (8.5-10.1) mg/dL Total Bilirubin (0.2-1.0) mg/dL AST (15-37) IU/L ALT (14-63) IU/L Alkaline Phosphatase (46-116) U/L Total Protein (6.4-8.2) g/dL Albumin (3.4-5.0) g/dL Globulin (2.0-3.5) g/dL Albumin/Globulin Ratio (1.3-2.8) Urine Color Urine Appearance Urine pH (5.0-8.0) Ur Specific [place] (1.001-1.035) Urine Protein (NEGATIVE) mg/dL Urine Glucose (UA) (NEGATIVE) mg/dL Urine Ketones (NEGATIVE) mg/dL Urine Occult Blood (NEGATIVE) Urine Nitrite (NEGATIVE) Urine Bilirubin (NEGATIVE) Urine Ictotest Urine Urobilinogen (<2.0) EU/dL Ur Leukocyte Esterase (NEGATIVE) Urine RBC (0-2/HPF) Urine WBC (0-5/HPF) Ur Epithelial Cells (NONE-FEW) Urine Bacteria (NEGATIVE) 09/01/17 09/01/17 09/01/17 Range/Units 05:29 05:30 05:30 WBC 6.08 (4.0-11.0) K/uL RBC 3.13 L (4.50-5.90) M/uL Hgb 9.4 L (13.0-17.0) g/dL Hct 28.8 L (38.0-50.0) % MCV 92.0 (80.0-98.0) fL MCH 30.0 (27.0-32.0) pg MCHC 32.6 (31.0-37.0) g/dL RDW Std Deviation 53.2 (28.0-62.0) fl RDW Coeff of Pura 16 H (11.0-15.0) % Plt Count 172 (150-400) K/uL MPV 8.60 (7.40-12.00) fL Neut % (Auto) 60.8 (48.0-80.0) % Lymph % (Auto) 22.7 (16.0-40.0) % Deuel % (Auto) 9.4 (0.0-15.0) % Eos % (Auto) 6.9 (0.0-7.0) % Baso % (Auto) 0.2 (0.0-1.5) % Neut # (Auto) 3.7 (1.4-5.7) K/uL Lymph # (Auto) 1.4 (0.6-2.4) K/uL Deuel # (Auto) 0.6 (0.0-0.8) K/uL Eos # (Auto) 0.4 (0.0-0.7) K/uL Baso # (Auto) 0.0 (0.0-0.1) K/uL Nucleated RBC % 0.0 /100WBC Nucleated RBCs # 0 K/uL INR Lactate (0.20-2.00) mmol/L Sodium 136 (136-148) mmol/L Potassium 4.5 (3.5-5.1) mmol/L Chloride 105 (98-107) mmol/L Carbon Dioxide 24.2 (21.0-32.0) mmol/L BUN 45 H (7.0-18.0) mg/dL Creatinine 1.8 H (0.8-1.3) mg/dL Est Cr Clr Drug Dosing 26.92 Estimated GFR (MDRD) 35.7 ml/min Glucose 96 (74-106) mg/dL POC Glucose 101 (60-110) mg/dL Calcium 8.5 (8.5-10.1) mg/dL Total Bilirubin (0.2-1.0) mg/dL AST (15-37) IU/L ALT (14-63) IU/L Alkaline Phosphatase (46-116) U/L Total Protein (6.4-8.2) g/dL Albumin (3.4-5.0) g/dL Globulin (2.0-3.5) g/dL Albumin/Globulin Ratio (1.3-2.8) Urine Color Urine Appearance Urine pH (5.0-8.0) Ur Specific [place] (1.001-1.035) Urine Protein (NEGATIVE) mg/dL Urine Glucose (UA) (NEGATIVE) mg/dL Urine Ketones (NEGATIVE) mg/dL Urine Occult Blood (NEGATIVE) Urine Nitrite (NEGATIVE) Urine Bilirubin (NEGATIVE) Urine Ictotest Urine Urobilinogen (<2.0) EU/dL Ur Leukocyte Esterase (NEGATIVE) Urine RBC (0-2/HPF) Urine WBC (0-5/HPF) Ur Epithelial Cells (NONE-FEW) Urine Bacteria (NEGATIVE) Med Orders - Current: Current Medications Acetaminophen (Tylenol) 650 mg PO Q4H PRN PRN Reason: Pain (mild 1-3) Last Admin: 08/31/17 21:02 Dose: 650 mg Albuterol (Proventil Neb Soln) 2.5 mg NEB Q2H PRN PRN Reason: Shortness Of Breath/wheezing Allopurinol (Zyloprim) 100 mg PO DAILY [facility] Last Admin: 09/01/17 08:32 Dose: 100 mg Atorvastatin Calcium (Lipitor) 20 mg PO DAILY [facility] Last Admin: 09/01/17 08:33 Dose: 20 mg Sodium Chloride 500 ml/ (Gentamicin Sulfate 80 mg) 0 ml IRR Q12H [facility] Last Admin: 09/01/17 08:36 Dose: 50 ml Piperacillin Sod/Tazobactam (Sod 2.25 gm/ Sodium Chloride) 50 mls @ 100 mls/hr IV Q6H [facility] Last Admin: 09/01/17 06:04 Dose: 100 mls/hr Insulin Aspart (Novolog) 0 unit SUBCUT TIDAC [facility]; Protocol Last Admin: 09/01/17 11:01 Dose: Not Given Levothyroxine Sodium (Synthroid) 50 mcg PO BEDTIME [facility] Nystatin (Nystop) 1 gm TOP QID [facility] Last Admin: 09/01/17 06:06 Dose: 1 applic Ondansetron HCl (Zofran) 4 mg IVPUSH Q4H PRN PRN Reason: Nausea Sertraline HCl (Zoloft) 25 mg PO DAILY [facility] Last Admin: 09/01/17 08:33 Dose: 25 mg Wound Care/Dressing Products (Duoderm Cgf) 1 each TOP ASDIRECTED [facility] Last Admin: 08/31/17 19:14 Dose: 1 each Discontinued Medications Piperacillin Sod/Tazobactam (Sod 2.25 gm/ Sodium Chloride) 50 mls @ 100 mls/hr IV ONETIME ONE Stop: 08/31/17 13:33 Last Admin: 08/31/17 13:30 Dose: 100 mls/hr Vancomycin HCl 1 gm/ Sodium (Chloride) 250 mls @ 250 mls/hr IV ONETIME ONE Stop: 08/31/17 14:03 Last Admin: 08/31/17 13:26 Dose: 250 mls/hr Sodium Chloride (Normal Saline) 1,000 mls @ 999 mls/hr IV .Bolus ONE Stop: 08/31/17 14:18 Last Infusion: 08/31/17 13:31 Dose: 125 mls/hr Levothyroxine Sodium (Synthroid) 50 mcg PO ACBREAKFAST TED Last Admin: 09/01/17 06:31 Dose: Not Given - Exam General: Alert, Cooperative, No Acute Distress. No: Oriented (disoreinted to place/time. Orientes easily. baseline) Neck: Supple Lungs: Clear to Auscultation, Normal Respiratory Effort Cardiovascular: Regular Rate, Regular Rhythm GI/Abdominal Exam: Normal Bowel Sounds, Soft, Non-Tender, No Organomegaly, No Distention, No Abnormal Bruit, No Mass, Pelvis Stable (Male) Exam: Other (no hematuria noted, scant small clots in yellow urine. ) Extremities: Normal Inspection, Normal Range of Motion, Non-Tender, No Pedal Edema, Normal Capillary Refill Skin: Rash (candidial rash to groin and scrotum. ) Wound/Incisions: Decubitis (Sacral stage [address], no erythema note. ) Neurological: No New Focal Deficit Psy/Mental Status: Alert, Normal Affect, Normal Mood - Problem List & Annotations (1) Urinary tract infection SNOMED Code(s): 08407057 Code(s): N39.0 - URINARY TRACT INFECTION, SITE NOT SPECIFIED Status: Acute Current Visit: Yes Qualifiers: Urinary tract infection type: acute cystitis Hematuria presence: with hematuria Qualified Code(s): N30.01 - Acute cystitis with hematuria (2) Hematuria SNOMED Code(s): 57402207 Code(s): R31.9 - HEMATURIA, UNSPECIFIED Status: Acute Current Visit: No (3) Renal insufficiency SNOMED Code(s): 026890367, 432770690 Code(s): N28.9 - DISORDER OF KIDNEY AND URETER, UNSPECIFIED Status: Chronic Current Visit: No (4) BPH (benign prostatic hyperplasia) SNOMED Code(s): 034692520 Code(s): N40.0 - BENIGN PROSTATIC HYPERPLASIA WITHOUT LOWER URINRY TRACT SYMP Status: Chronic Current Visit: No (5) DM type 2 (diabetes mellitus, type 2) SNOMED Code(s): 79036264 Code(s): E11.9 - TYPE 2 DIABETES MELLITUS WITHOUT COMPLICATIONS Status: Chronic Priority: Medium Current Visit: No Qualifiers: Diabetes mellitus process excellence manager insulin use: without process excellence manager use Diabetes mellitus complication status: without complication Qualified Code(s): E11.9 - Type 2 diabetes mellitus without complications (6) Emphysema SNOMED Code(s): 73474012 Code(s): J43.9 - EMPHYSEMA, UNSPECIFIED Status: Chronic Current Visit: No (7) HTN (hypertension) SNOMED Code(s): 06253578 Code(s): I10 - ESSENTIAL (PRIMARY) HYPERTENSION Status: Chronic Current Visit: No Qualifiers: Hypertension type: essential hypertension Qualified Code(s): I10 - Essential (primary) hypertension (8) History of cervical fracture SNOMED Code(s): 056844529, 459171536 Code(s): Z87.81 - PERSONAL HISTORY OF (HEALED) TRAUMATIC FRACTURE Status: Chronic Current Visit: No (9) Hypothyroidism SNOMED Code(s): 05108350 Code(s): E03.9 - HYPOTHYROIDISM, UNSPECIFIED Status: Chronic Priority: Medium Current Visit: No Qualifiers: Hypothyroidism type: unspecified Qualified Code(s): E03.9 - Hypothyroidism , unspecified (10) TIA (transient ischemic attack) SNOMED Code(s): 647813617 Code(s): G45.9 - TRANSIENT CEREBRAL ISCHEMIC ATTACK, UNSPECIFIED Status: Chronic Current Visit: No Qualifiers: Transient cerebral ischemia type: unspecified Qualified Code(s): G45.9 - Transient cerebral ischemic attack, unspecified (11) Unsteady gait SNOMED Code(s): 30301710, 204322430 Code(s): R26.81 - UNSTEADINESS ON FEET Status: Chronic Current Visit: No - Problem List Review Problem List Initiated/Reviewed/Updated: Yes - My Orders Last 24 Hours: My Active Orders 08/31/17 13:55 May Shower [RC] ASDIRECTED Oxygen Therapy [RC] PRN Up to Chair [RC] ASDIRECTED VTE/DVT Education [RC] PER UNIT ROUTINE Vital Signs [RC] Q4H Consult to Physician [CONS] Routine Acetaminophen [Tylenol] 650 mg PO Q4H PRN Ondansetron [Zofran] 4 mg IVPUSH Q4H PRN Resuscitation Status Routine 08/31/17 13:56 Intake and Output [RC] Q12H Sequential Compression Device [OM.PC] Per Unit Routine 08/31/17 13:57 Notify Provider Consults [RC] ASDIRECTED 08/31/17 14:18 Blood Glucose Check, Bedside [RC] TIDAC 08/31/17 14:21 RT Aerosol Therapy [RC] ASDIRECTED Albuterol [Proventil Neb Soln] 2.5 mg NEB Q2H PRN 08/31/17 15:50 Urinary Catheter Assessment [RC] Q4H 08/31/17 16:00 Hydrocolloid Dressing [DuoDerm CGF] 1 each TOP ASDIRECTED 08/31/17 17:00 Insulin Aspart [NovoLOG] See Protocol SUBCUT TIDAC 08/31/17 18:00 Nystatin [Nystop] 1 gm TOP QID 08/31/17 18:37 Bladder Irrigation [RC] BID 08/31/17 19:00 Piperacillin/Tazobactam [Zosyn] 2.25 gm Sodium Chloride 0.9% [Normal Saline] 50 ml IV Q6H 08/31/17 21:00 Sodium Chloride 0.9% 500 ml Gentamicin 80 mg IRR Q12H 09/01/17 09:00 Allopurinol [Zyloprim] 100 mg PO DAILY Sertraline [Zoloft] 25 mg PO DAILY atorvaSTATin [Lipitor] 20 mg PO DAILY 09/01/17 16:00 Bowen Catheter Insertion [Insert Urinary Catheter] [OM.PC] Q24H 09/01/17 21:00 Levothyroxine [Synthroid] 50 mcg PO BEDTIME 09/02/17 05:11 BASIC METABOLIC PANEL,BMP [CHEM] AM CBC WITH AUTO DIFF [HEME] AM 09/03/17 05:11 BASIC METABOLIC PANEL,BMP [CHEM] AM CBC WITH AUTO DIFF [HEME] AM - Plan Plan:: This 89 year old male admitted with possible sepsis due to hypotension, UTI and gross hematuria. 1. Sepsis: Ruled out. 2. UTI: Suspected, UC in past have never grown out organism. UC pending, but urine appears good, no further hematuria. Bowen changed yesterday, now [address] Will discontinue Zosyn. Continue Gentamycin flushes for [address] Mena recommendations. 3. Hematuria: Dr Mena consulted. Irrigation for clots PRN. HH stable. No further hematuria today. 4. HTN: Stable. Will monitor. 5. DM type 2: Stable, diet controlled. Will monitor. VTE prophylaxis: SCDs only due to hematuria Dispo: 2-3 days pending improvement. Spoke at length with daughter, Winsome, and , Eddi regarding help at home. Winsome appears very stressed with some cares and feels as though she needs some more help with ADLS or at least some education on appropriate cares with bowen. We spoke at length to solidify a plan for outpatient concerns. That these should be attempted to be addressed with PCP or Dr Mena, instead of coming to the ED. It may be beneficial for assessment first as outpatient to reduce readmissions. Family completed agrees and wants to limit how much he is in the hospital and feel worn out since he has been admitted nearly almost monthly this winter. I did speak with Home health for them to better educate and support when needed. The daughter is very adamant about keeping him at home and not placing him in a senior living. Will ask case management to speak with family regarding additional resources if available for them.
[2017-09-01] MEDS: Acetaminophen 325 MG Tab PO PRN (22:44)
[2017-09-02] MEDS: Nystatin Topical Powder 15 GM Bottle TOP SCH (05:49)
[2017-09-02] MEDS: Insulin Aspart 100 Units/ML 3 ML Pen SUBCUT SCH (06:43)
[2017-09-02 07:52] VITALS: BP 141/63
--- NOTE | 2017-09-02 08:52 | PCM.DCSUM1 ---
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 Carlos is in room by himself, no family with him. Per ED mD report, formerly [facility] noted hematuria today and encouraged them to be evaluated in the ED for this. Carlos reports he is feeling well, no chest pain, dyspnea, palpitations or abdominal pain. Denies penile pain or bladder pain. In the ED no leukocytosis noted, hgb 10.0, Na 132. BUN 44 Cr 1.6, which is baseline. Lactate 1.3. HR 50s, BP initially was 133/59, but during a recheck BP dipped to 92/40. He was given IVFs with elevation to 118/80s. UA obtained with shows pyruia, + nitrites, moderate leukocyte esterase, few bacteria. Bowen was irrigated, clots noted and pink return of urine then noted. He will be admitted for UTI, gross hematuria and possible sepsis. PCP, Dr Cisneros. - Discharge Data Discharge Date: 09/02/17 Discharge Disposition: Home, [facility] Condition: Good - Discharge Diagnosis/Problem(s) (1) Hematuria SNOMED Code(s): 79338910 ICD Code: R31.9 - HEMATURIA, UNSPECIFIED Status: Acute Current Visit: No (2) Urinary tract infection SNOMED Code(s): 80097164 ICD Code: N39.0 - URINARY TRACT INFECTION, SITE NOT SPECIFIED Status: Acute Current Visit: Yes Qualifiers: Urinary tract infection type: acute cystitis Hematuria presence: with hematuria Qualified Code(s): N30.01 - Acute cystitis with hematuria (3) Stage 1 skin ulcer of sacral region SNOMED Code(s): 87433526, 405448492 ICD Code: L98.429 - NON-PRESSURE CHRONIC ULCER OF BACK WITH UNSPECIFIED SEVERITY Status: Acute Current Visit: Yes (4) Ilia rash of groin SNOMED Code(s): 941232863, 388310171 ICD Code: B37.89 - OTHER SITES OF CANDIDIASIS Status: Acute Current Visit : Yes (5) Renal insufficiency SNOMED Code(s): 574112953, 971277161 ICD Code: N28.9 - DISORDER OF KIDNEY AND URETER, UNSPECIFIED Status: Chronic Current Visit: No (6) BPH (benign prostatic hyperplasia) SNOMED Code(s): 695087189 ICD Code: N40.0 - BENIGN PROSTATIC HYPERPLASIA WITHOUT LOWER URINRY TRACT SYMP Status: Chronic Current Visit: No (7) DM type 2 (diabetes mellitus, type 2) SNOMED Code(s): 78917891 ICD Code: E11.9 - TYPE 2 DIABETES MELLITUS WITHOUT COMPLICATIONS Status: Chronic Priority: Medium Current Visit: No Qualifiers: Diabetes mellitus retail experience specialist insulin use: without residential use Diabetes mellitus complication status: without complication Qualified Code(s): E11.9 - Type 2 diabetes mellitus without complications (8) Emphysema SNOMED Code(s): 19232312 ICD Code: J43.9 - EMPHYSEMA, UNSPECIFIED Status: Chronic Current Visit: No (9) HTN (hypertension) SNOMED Code(s): 06382401 ICD Code: I10 - ESSENTIAL (PRIMARY) HYPERTENSION Status: Chronic Current Visit: No Qualifiers: Hypertension type: essential hypertension Qualified Code(s): I10 - Essential (primary) hypertension (10) History of cervical fracture SNOMED Code(s): 966012926, 887414759 ICD Code: Z87.81 - PERSONAL HISTORY OF (HEALED) TRAUMATIC FRACTURE Status: Chronic Current Visit: No (11) Hypothyroidism SNOMED Code(s): 97997309 ICD Code: E03.9 - HYPOTHYROIDISM, UNSPECIFIED Status: Chronic Priority: Medium Current Visit: No Qualifiers: Hypothyroidism type: unspecified Qualified Code(s): E03.9 - Hypothyroidism , unspecified (12) TIA (transient ischemic attack) SNOMED Code(s): 876793770 ICD Code: G45.9 - TRANSIENT CEREBRAL ISCHEMIC ATTACK, UNSPECIFIED Status: Chronic Current Visit: No Qualifiers: Transient cerebral ischemia type: unspecified Qualified Code(s): G45.9 - Transient cerebral ischemic attack, unspecified (13) Unsteady gait SNOMED Code(s): 18833794, 294260137 ICD Code: R26.81 - UNSTEADINESS ON FEET Status: Chronic Current Visit: No - Patient Summary/Data Consults: Consultations 08/31/17 13:55 Consult to Physician [CONS] Routine - Patient Instructions Diet: Heart Healthy Diet, Diabetic Diet Activity: As Tolerated, Rest and Relax Today Showering/Bathing: May Shower Notify Provider of: Fever, Increased Pain, Swelling and Redness, Drainage, Nausea and/or Vomiting Other/Special Instructions: If hematuria is to return, please call Dr Mena's clinic, . Bowen cares daily. Including perineal cares. - Discharge Plan Prescriptions/Med Rec: Amoxicillin 500 mg PO Q12H #20 capsule Gentamicin 80 mg IRR Q12H #1 vial Hydrocolloid Dressing [DuoDerm CGF] 1 each TOP Q2D #1 box Nystatin [Nystop] 1 gm TOP QID #1 bottle Home Medications: Home Meds Allopurinol [Zyloprim] 100 mg PO DAILY 03/22/17 [History] Levothyroxine Sodium [Levo-T] 50 mcg PO DAILY 03/22/17 [History] Sertraline HCl 25 mg PO DAILY 03/22/17 [History] amLODIPine [Norvasc] 5 mg PO DAILY #30 tablet 03/24/17 [Rx] Albuterol Sulfate 5 mg IH Q4H PRN 05/19/17 [History] Aspirin 81 mg PO DAILY 30 Days #30 tab.chew 05/21/17 [Rx] Tamsulosin HCl [Flomax] 0.4 mg PO BEDTIME 08/03/17 [History] atorvaSTATin [Lipitor] 20 mg PO DAILY 08/31/17 [History] Amoxicillin 500 mg PO Q12H #20 capsule 09/02/17 [Rx] Gentamicin 80 mg IRR Q12H #1 vial 09/02/17 [Rx] Hydrocolloid Dressing [DuoDerm CGF] 1 each TOP Q2D #1 box 09/02/17 [Rx] Nystatin [Nystop] 1 gm TOP QID #1 bottle 09/02/17 [Rx] Patient Handouts: Nystatin topical powder, Hypotension, [id number], Urinary Tract Infection, Adult, [id number], Gentamicin solution for injection Referrals: Peng Cisneros MD [Primary Care Provider] - 09/14/17 9:00 am Suma Mena MD [Physician] - 09/16/17 1:45 pm - Discharge Summary/Plan Comment DC Time >30 min.: No Discharge Summary/Plan Comment: Discharge Diagnoses: Hematuria 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 Hematuria noted in ED, irrigation of bowen revealed many clots. He was admitted and bowen was changed to [address] Mena consulted due to hematuria and recommended stopping Zosyn and treating with Gentamicin bowen irrigations BID for 3 days. This was completed and hematuria slowed and then stopped, some small clots noted in yellow urine. BC returned negative. VS have been stable and patient has been alert and oriented during stay. UC returns with Enterococcus faecalis >100,000 will send home with 5 days Amoxicillin 1 g Q12hr. Family agrees with discharge and eager for it this morning. No concerns. Encouraged to return to ED or clinic if concerns should arise. Family, daughter and , provide full cares to Carlos at home, with assistance of Home Health. They have become frustrated with multiple trips to the ED and then subsequent admissions and transfers. They are seeking more help at home with cares for Carlos, including bowen cares, skin cares and education on what to watch for. Daughter, Winsome, adamantly denied SNF transfer. They also would like more direction on how to handle hematuria if/when this should return. Dr Mena let family know, to call him if it returns and he would help address it besides going to the ED, if he could. Home Health will be continued, residential needs are needed for medication education and administration, ADLs and skin assessment education, bowen cares and monthly (every 30 days) bowen catheter changes, wound care and assessment for stage 1 sacral ulcer along with education on cares and prevention of these, physical therapy is needed for deconditioning due to frequently hospitalizations and acute illness, social work consult would be beneficial to assess home situation and obtain needs assessment for them at home. He is homebound, needing assistance of daughter and device to transfer to car, Gait is very unsteady and unable to ambulate easily for long distances, able to transfer from chair to chair with assistance of one and device. PCP, Dr Cisneros to follow care plan upon discharge home. - General Info Date of Service: 09/02/17 Admission Dx/Problem (Free Text: Admission Diagnosis/Problem Admission Diagnosis/Problem Hematuria, chronic bowen, suspected UTI Subjective Update: Sitting up in chair eating breakfast. Very alert and talkative this morning. No concerns. No pain. No chest pain or SOB. Bowen remains intact with clear yellow urine. Functional Status: Reports: Pain Controlled, Tolerating Diet. Denies: Ambulating - Review of Systems General: Reports: No Symptoms. Denies: Weakness, Fatigue, Malaise HEENT: Reports: No Symptoms. Denies: Headaches, Sore Throat, Visual Changes Pulmonary: Reports: No Symptoms. Denies: Shortness of Breath Cardiovascular: Reports: No Symptoms. Denies: Chest Pain Gastrointestinal: Reports: No Symptoms. Denies: Abdominal Pain Genitourinary: Reports: No Symptoms Neurological: Reports: No Symptoms Psychiatric: Reports: No Symptoms - Patient Data Vitals - Most Recent: Last Vital Signs Temp 99.9 F 09/02/17 07:52 Pulse 63 09/02/17 07:52 Resp 16 09/02/17 07:52 BP 141/63 H 09/02/17 07:52 Pulse Ox 92 L 09/02/17 07:52 Weight - Most Recent: 74.616 kg I&O - Last 24 hours: Intake & Output 09/01/17 09/02/17 09/02/17 22:59 06:59 14:59 Intake Total 1720 600 Output Total 8395 6655 Balance -605 -1825 Lab Results - Last 24 hrs: Laboratory Results - last 24 hr 09/01/17 09/01/17 09/02/17 Range/Units 10:59 16:05 04:50 WBC 5.28 (4.0-11.0) K/uL RBC 3.08 L (4.50-5.90) M/uL Hgb 9.2 L (13.0-17.0) g/dL Hct 28.4 L (38.0-50.0) % MCV 92.2 (80.0-98.0) fL MCH 29.9 (27.0-32.0) pg MCHC 32.4 (31.0-37.0) g/dL RDW Std Deviation 53.9 (28.0-62.0) fl RDW Coeff of Pura 16 H (11.0-15.0) % Plt Count 176 (150-400) K/uL MPV 8.70 (7.40-12.00) fL Neut % (Auto) 59.1 (48.0-80.0) % Lymph % (Auto) 25.0 (16.0-40.0) % [place] % (Auto) 8.5 (0.0-15.0) % Eos % (Auto) 7.2 H (0.0-7.0) % Baso % (Auto) 0.2 (0.0-1.5) % Neut # (Auto) 3.1 (1.4-5.7) K/uL Lymph # (Auto) 1.3 (0.6-2.4) K/uL [place] # (Auto) 0.5 (0.0-0.8) K/uL Eos # (Auto) 0.4 (0.0-0.7) K/uL Baso # (Auto) 0.0 (0.0-0.1) K/uL Nucleated RBC % 0.0 /100WBC Nucleated RBCs # 0 K/uL Sodium (136-148) mmol/L Potassium (3.5-5.1) mmol/L Chloride (98-107) mmol/L Carbon Dioxide (21.0-32.0) mmol/L BUN (7.0-18.0) mg/dL Creatinine (0.8-1.3) mg/dL Est Cr Clr Drug Dosing mL/min Estimated GFR (MDRD) ml/min Glucose (74-106) mg/dL POC Glucose 126 H 142 H (60-110) mg/dL Calcium (8.5-10.1) mg/dL 09/02/17 Range/Units 04:50 WBC (4.0-11.0) K/uL RBC (4.50-5.90) M/uL Hgb (13.0-17.0) g/dL Hct (38.0-50.0) % MCV (80.0-98.0) fL MCH (27.0-32.0) pg MCHC (31.0-37.0) g/dL RDW Std Deviation (28.0-62.0) fl RDW Coeff of Pura (11.0-15.0) % Plt Count (150-400) K/uL MPV (7.40-12.00) fL Neut % (Auto) (48.0-80.0) % Lymph % (Auto) (16.0-40.0) % [place] % (Auto) (0.0-15.0) % Eos % (Auto) (0.0-7.0) % Baso % (Auto) (0.0-1.5) % Neut # (Auto) (1.4-5.7) K/uL Lymph # (Auto) (0.6-2.4) K/uL [place] # (Auto) (0.0-0.8) K/uL Eos # (Auto) (0.0-0.7) K/uL Baso # (Auto) (0.0-0.1) K/uL Nucleated RBC % /100WBC Nucleated RBCs # K/uL Sodium 137 (136-148) mmol/L Potassium 4.4 (3.5-5.1) mmol/L Chloride 105 (98-107) mmol/L Carbon Dioxide 23.4 (21.0-32.0) mmol/L BUN 44 H (7.0-18.0) mg/dL Creatinine 1.9 H (0.8-1.3) mg/dL Est Cr Clr Drug Dosing 25.50 mL/min Estimated GFR (MDRD) 33.5 ml/min Glucose 110 H (74-106) mg/dL POC Glucose (60-110) mg/dL Calcium 8.5 (8.5-10.1) mg/dL SHAYNE Results - Last 24 hrs: Microbiology 08/31/17 13:21 Aerobic Blood Culture - Preliminary Blood - Venous - Lab Draw NO GROWTH AFTER 1 DAY Anaerobic Blood Culture - Preliminary NO GROWTH AFTER 1 DAY 08/31/17 13:12 Aerobic Blood Culture - Preliminary Blood - Venous NO GROWTH AFTER 1 DAY Anaerobic Blood Culture - Preliminary NO GROWTH AFTER 1 DAY Med Orders - Current: Current Medications Acetaminophen (Tylenol) 650 mg PO Q4H PRN PRN Reason: Pain (mild 1-3) Last Admin: 09/01/17 22:44 Dose: 650 mg Albuterol (Proventil Neb Soln) 2.5 mg NEB Q2H PRN PRN Reason: Shortness Of Breath/wheezing Allopurinol (Zyloprim) 100 mg PO DAILY [facility] Last Admin: 09/01/17 08:32 Dose: 100 mg Atorvastatin Calcium (Lipitor) 20 mg PO DAILY [facility] Last Admin: 09/01/17 08:33 Dose: 20 mg Sodium Chloride 500 ml/ (Gentamicin Sulfate 80 mg) 0 ml IRR Q12H [facility] Last Admin: 09/01/17 21:00 Dose: 100 ml Insulin Aspart (Novolog) 0 unit SUBCUT TIDAC [facility]; Protocol Last Admin: 09/02/17 06:43 Dose: Not Given Levothyroxine Sodium (Synthroid) 50 mcg PO BEDTIME [facility] Last Admin: 09/01/17 20:56 Dose: 50 mcg Nystatin (Nystop) 1 gm TOP QID [facility] Last Admin: 09/02/17 05:49 Dose: 1 applic Ondansetron HCl (Zofran) 4 mg IVPUSH Q4H PRN PRN Reason: Nausea Sertraline HCl (Zoloft) 25 mg PO DAILY [facility] Last Admin: 09/01/17 08:33 Dose: 25 mg Wound Care/Dressing Products (Duoderm Cgf) 1 each TOP ASDIRECTED [facility] Last Admin: 08/31/17 19:14 Dose: 1 each Discontinued Medications Piperacillin Sod/Tazobactam (Sod 2.25 gm/ Sodium Chloride) 50 mls @ 100 mls/hr IV ONETIME ONE Stop: 08/31/17 13:33 Last Admin: 08/31/17 13:30 Dose: 100 mls/hr Vancomycin HCl 1 gm/ Sodium (Chloride) 250 mls @ 250 mls/hr IV ONETIME ONE Stop: 08/31/17 14:03 Last Admin: 08/31/17 13:26 Dose: 250 mls/hr Sodium Chloride (Normal Saline) 1,000 mls @ 999 mls/hr IV .Bolus ONE Stop: 08/31/17 14:18 Last Infusion: 08/31/17 13:31 Dose: 125 mls/hr Piperacillin Sod/Tazobactam (Sod 2.25 gm/ Sodium Chloride) 50 mls @ 100 mls/hr IV Q6H [facility] Last Admin: 09/01/17 06:04 Dose: 100 mls/hr Levothyroxine Sodium (Synthroid) 50 mcg PO ACBREAKFAST [facility] Last Admin: 09/01/17 06:31 Dose: Not Given - Exam General: Reports: Alert, Cooperative, No Acute Distress. Denies: Oriented Neck: Reports: Supple Lungs: Reports: Clear to Auscultation, Normal Respiratory Effort Cardiovascular: Reports: Regular Rate, Regular Rhythm GI/Abdominal Exam: Normal Bowel Sounds, Soft, Non-Tender, No Organomegaly, No Distention, No Abnormal Bruit, No Mass, Pelvis Stable Back Exam: Reports: Normal Inspection, Full Range of Motion Extremities: Normal Inspection, Normal Range of Motion, Non-Tender, No Pedal Edema, Normal Capillary Refill Skin: Reports: Rash (ilia rash to groin and scrotum, slowly improving, less itchy per patient.) Wound/Incisions: Reports: Decubitis (stage 1 to sacrum, Duoderm intact. ) Neurological: Reports: No New Focal Deficit Psy/Mental Status: Reports: Alert, Normal Affect, Normal Mood *Q Meaningful Use (DIS) - VTE *Q VTE Pharmacological Contraindications *Q: Risk of Bleeding
== END 2017-09-02 11:20 | disposition home health service (06) | DRG 690 ==
LOC: MW.ED 11:20 → MW.MS 13:17
PROVIDERS: ADMIT Internal Medicine; ATTEND Internal Medicine
DX: I95.9 Hypotension, unspecified (principal); N39.0 Urinary tract infection, site not specified; E78.00 Pure hypercholesterolemia, unspecified; N30.01 Acute cystitis with hematuria; L89.151 Pressure ulcer of sacral region, stage 1; E10.9 Type 1 diabetes mellitus without complications; I10 Essential (primary) hypertension; E03.9 Hypothyroidism, unspecified; E11.9 Type 2 diabetes mellitus without complications; R31.0 Gross hematuria; N40.0 Benign prostatic hyperplasia without lower urinary tract symptoms; J43.9 Emphysema, unspecified; N28.9 Disorder of kidney and ureter, unspecified; B37.2 Candidiasis of skin and nail; R26.9 Unspecified abnormalities of gait and mobility; M62.89 Other specified disorders of muscle; Z87.891 Personal history of nicotine dependence; Z86.73 Personal history of transient ischemic attack (TIA), and cerebral infarction without residual deficits; Z79.899 Other long term (current) drug therapy; Z79.82 Long term (current) use of aspirin; B95.2 Enterococcus as the cause of diseases classified elsewhere
CPT/HCPCS: 36415; 71045; 80053; 81001; 83605; 85025; 85610; 87040; 87086; 87088; 87186; 93005; 99285; J7040; 80048; 82962; 85014; 85018; 96365; 96375; A9270-GY; J1580; J2543; J3370; J7050

== ENCOUNTER 2017-10-13 22:10 | Emergency (ER) | payer MEDICARE, BC ==
--- NOTE | 2017-10-13 23:03 | EDM.PDOC ---
ED HPI GENERAL MEDICAL PROBLEM - General Chief Complaint: Genitourinary Problem Stated Complaint: CATHETER ISSUES Time Seen by Provider: 10/13/17 22:47 - History of Present Illness INITIAL COMMENTS - FREE TEXT/NARRATIVE: HISTORY AND PHYSICAL: History of present illness: Patient 89-year-old male with chronic indwelling Carroll that has blood in his Carroll now possibly related to trauma Carroll does appear to be in place and functioning and draining at this time. No fever chills nausea vomiting or other complaints Review of systems: As per history of present illness and below otherwise all systems reviewed and negative. Past medical history: As per history of present illness and as reviewed below otherwise noncontributory. Surgical history: As per history of present illness and as reviewed below otherwise noncontributory. Social history: No reported history of drug or alcohol abuse. Family history: As per history of present illness and as reviewed below otherwise noncontributory. Physical exam: HEENT: Atraumatic, normocephalic, pupils reactive, negative for conjunctival pallor or scleral icterus, mucous membranes moist, throat clear, neck supple, nontender, trachea midline. Lungs: Clear to auscultation, breath sounds equal bilaterally, chest nontender. Heart: S1S2, regular, negative for clicks, rubs, or JVD. Abdomen: Soft, nondistended, nontender. Negative for masses or hepatosplenomegaly. Negative for costovertebral tenderness. Pelvis: Stable nontender. Genitourinary: Deferred. Rectal: Deferred. Extremities: Atraumatic, negative for cords or calf pain. Neurovascular unremarkable. Neuro: Awake follows commands moves all extremities limited but grossly nonfocal exam baseline per planner Diagnostics: CBC CMP UA urine culture and sensitivity PT/INR Therapeutics: Lavage Carroll to clear Impression: #1 chronic indwelling Carroll with hematuria #2 rule out traumatic injury Definitive disposition and diagnosis as appropriate pending reevaluation and review of above. penile area Pain Score (Numeric/FACES): 5 - Related Data Allergies Allergy/AdvReac Type Severity Reaction Status Date / Time No Known Allergies Allergy Verified 10/13/17 22:57 Home Meds: Home Meds Allopurinol [Zyloprim] 100 mg PO DAILY 03/22/17 [History] Levothyroxine Sodium [Levo-T] 50 mcg PO DAILY 11/20/17 [History] Sertraline HCl 25 mg PO DAILY 03/22/17 [History] amLODIPine [Norvasc] 5 mg PO DAILY #30 tablet 03/24/17 [Rx] Albuterol Sulfate 5 mg IH Q4H PRN 05/19/17 [History] Aspirin 81 mg PO DAILY 30 Days #30 tab.chew 05/21/17 [Rx] Tamsulosin HCl [Flomax] 0.4 mg PO BEDTIME 08/03/17 [History] atorvaSTATin [Lipitor] 20 mg PO DAILY 08/31/17 [History] Amoxicillin 500 mg PO Q12H #20 capsule 09/02/17 [Rx] Gentamicin 80 mg IRR Q12H #1 vial 09/02/17 [Rx] Hydrocolloid Dressing [DuoDerm CGF] 1 each TOP Q2D #1 box 09/02/17 [Rx] Nystatin [Nystop] 1 gm TOP QID #1 bottle 09/02/17 [Rx] Past Medical History HEENT History: Reports: Hard of Hearing, Impaired Vision Cardiovascular History: Reports: High Cholesterol, Hypertension, Other (See Below) Other Cardiovascular History: hypotension with TIAs Respiratory History: Reports: Other (See Below) Other Respiratory History: emphysema; 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 Gastrointestinal History: Reports: None Genitourinary History: Reports: BPH, UTI, Recurrent, Other (See Below) Musculoskeletal History: Reports: Fracture, Gout, Other (See Below) Other Musculoskeletal History: cervical fracture Neurological History: Reports: Head Trauma, TIA Psychiatric History: Reports: Dementia Endocrine/Metabolic History: Reports: Diabetes, Type II, Hypothyroidism Hematologic History: Reports: Blood Transfusion(s) Other Hematologic History: blood transfusion Immunologic History: Reports: None Oncologic (Cancer) History: Reports: Colon Dermatologic History: Reports: None - Infectious Disease History Infectious Disease History: Reports: None - Past Surgical History Head Surgeries/Procedures: Reports: None HEENT Surgical History: Reports: Cataract Surgery Cardiovascular Surgical History: Reports: None Respiratory Surgical History: Reports: None GI Surgical History: Reports: Colonoscopy Male Surgical History: Reports: TURP-Transurethral Resection of Prostate, Other (See Below) Endocrine Surgical History: Reports: None Neurological Surgical History: Reports: None Musculoskeletal Surgical History: Reports: None Dermatological Surgical History: Reports: None Social & Family History - Family History Family Medical History: Noncontributory - Caffeine Use Caffeine Use: Reports: Coffee - Living Situation & Occupation Living situation: Reports: with Family Occupation: Retired ED ROS GENERAL - Review of Systems Review Of Systems: ROS reveals no pertinent complaints other than HPI. ED EXAM, GENERAL - Physical Exam Exam: See Below (See dictation) Course - Vital Signs Last Recorded V/S: Last Vital Signs Temp 36.4 C 10/13/17 22:57 Pulse 62 10/13/17 22:57 Resp 18 10/13/17 22:57 BP 139/54 L 10/13/17 22:57 Pulse Ox 97 10/13/17 22:57 - Orders/Labs/Meds Orders: Active Orders 24 hr Category Date Time Status Pelvis Min 3V [CR] Stat Exams 10/13/17 23:03 Taken CULTURE URINE [RM] Stat Lab 10/13/17 23:55 Received UA W/MICROSCOPIC [URIN] Stat Lab 10/13/17 23:55 Ordered Labs: Laboratory Tests 10/13/17 10/13/17 10/13/17 Range/Units 23:11 23:11 23:11 WBC 6.15 (4.0-11.0) K/uL RBC 3.66 L (4.50-5.90) M/uL Hgb 11.4 L (13.0-17.0) g/dL Hct 32.9 L (38.0-50.0) % MCV 89.9 (80.0-98.0) fL MCH 31.1 (27.0-32.0) pg MCHC 34.7 (31.0-37.0) g/dL RDW Std Deviation 52.7 (28.0-62.0) fl RDW Coeff of Pura 16 H (11.0-15.0) % Plt Count 154 (150-400) K/uL MPV 8.40 (7.40-12.00) fL Neut % (Auto) 67.2 (48.0-80.0) % Lymph % (Auto) 20.0 (16.0-40.0) % Giles % (Auto) 8.9 (0.0-15.0) % Eos % (Auto) 3.7 (0.0-7.0) % Baso % (Auto) 0.2 (0.0-1.5) % Neut # (Auto) 4.1 (1.4-5.7) K/uL Lymph # (Auto) 1.2 (0.6-2.4) K/uL Giles # (Auto) 0.6 (0.0-0.8) K/uL Eos # (Auto) 0.2 (0.0-0.7) K/uL Baso # (Auto) 0.0 (0.0-0.1) K/uL Nucleated RBC % 0.0 /100WBC Nucleated RBCs # 0 K/uL INR 1.07 Sodium 133 L (136-148) mmol/L Potassium 4.4 (3.5-5.1) mmol/L Chloride 99 (98-107) mmol/L Carbon Dioxide 25.1 (21.0-32.0) mmol/L BUN 60 H (7.0-18.0) mg/dL Creatinine 2.1 H (0.8-1.3) mg/dL Est Cr Clr Drug Dosing 22.95 mL/min Estimated GFR (MDRD) 29.9 ml/min Glucose 81 (74-106) mg/dL Calcium 8.6 (8.5-10.1) mg/dL Total Bilirubin 0.4 (0.2-1.0) mg/dL AST 29 (15-37) IU/L ALT 31 (14-63) IU/L Alkaline Phosphatase 131 H (46-116) U/L Total Protein 6.6 (6.4-8.2) g/dL Albumin 2.8 L (3.4-5.0) g/dL Globulin 3.8 H (2.0-3.5) g/dL Albumin/Globulin Ratio 0.7 L (1.3-2.8) Urine Color Urine Appearance Urine pH (5.0-8.0) Ur Specific [place] (1.001-1.035) Urine Protein (NEGATIVE) mg/dL Urine Glucose (UA) (NEGATIVE) mg/dL Urine Ketones (NEGATIVE) mg/dL Urine Occult Blood (NEGATIVE) Urine Nitrite (NEGATIVE) Urine Bilirubin (NEGATIVE) Urine Ictotest Urine Urobilinogen (<2.0) EU/dL Ur Leukocyte Esterase (NEGATIVE) 10/13/17 Range/Units 23:55 WBC (4.0-11.0) K/uL RBC (4.50-5.90) M/uL Hgb (13.0-17.0) g/dL Hct (38.0-50.0) % MCV (80.0-98.0) fL MCH (27.0-32.0) pg MCHC (31.0-37.0) g/dL RDW Std Deviation (28.0-62.0) fl RDW Coeff of Pura (11.0-15.0) % Plt Count (150-400) K/uL MPV (7.40-12.00) fL Neut % (Auto) (48.0-80.0) % Lymph % (Auto) (16.0-40.0) % Giles % (Auto) (0.0-15.0) % Eos % (Auto) (0.0-7.0) % Baso % (Auto) (0.0-1.5) % Neut # (Auto) (1.4-5.7) K/uL Lymph # (Auto) (0.6-2.4) K/uL Giles # (Auto) (0.0-0.8) K/uL Eos # (Auto) (0.0-0.7) K/uL Baso # (Auto) (0.0-0.1) K/uL Nucleated RBC % /100WBC Nucleated RBCs # K/uL INR Sodium (136-148) mmol/L Potassium (3.5-5.1) mmol/L Chloride (98-107) mmol/L Carbon Dioxide (21.0-32.0) mmol/L BUN (7.0-18.0) mg/dL Creatinine (0.8-1.3) mg/dL Est Cr Clr Drug Dosing mL/min Estimated GFR (MDRD) ml/min Glucose (74-106) mg/dL Calcium (8.5-10.1) mg/dL Total Bilirubin (0.2-1.0) mg/dL AST (15-37) IU/L ALT (14-63) IU/L Alkaline Phosphatase (46-116) U/L Total Protein (6.4-8.2) g/dL Albumin (3.4-5.0) g/dL Globulin (2.0-3.5) g/dL Albumin/Globulin Ratio (1.3-2.8) Urine Color RED Urine Appearance CLOUDY Urine pH 6.5 (5.0-8.0) Ur Specific [place] <= 1.005 (1.001-1.035) Urine Protein 100 (NEGATIVE) mg/dL Urine Glucose (UA) NEGATIVE (NEGATIVE) mg/dL Urine Ketones TRACE H (NEGATIVE) mg/dL Urine Occult Blood LARGE H (NEGATIVE) Urine Nitrite POSITIVE H (NEGATIVE) Urine Bilirubin SMALL H (NEGATIVE) Urine Ictotest NEGATIVE Urine Urobilinogen 1.0 (<2.0) EU/dL Ur Leukocyte Esterase MODERATE (NEGATIVE) Meds: Medications Discontinued Medications Generic Name Dose Route Start Last Admin Trade Name Orlinq PRN Reason Stop Dose Admin Iopamidol 100 ml 10/13/17 23:43 10/13/17 23:44 Isovue-300 (61%) IUTERINE 10/13/17 23:44 50 ml ONETIME ONE Administration Departure - Departure Time of Disposition: 00:29 Disposition: Home, Self-Care 01 Condition: Good Clinical Impression: UTI, Urinary tract infectious disease - Discharge Information Referrals: Peng Cisneros MD [Primary Care Provider] - Forms: ED Department Discharge Additional Instructions: The following information is given to patients seen in the emergency department who are being discharged to home. This information is to outline your options for follow-up care. We provide all patients seen in our emergency department with a follow-up referral. The need for follow-up, as well as the timing and circumstances, are variable depending upon the specifics of your emergency department visit. If you don't have a primary care physician on staff, we will provide you with a referral. We always advise you to contact your personal physician following an emergency department visit to inform them of the circumstance of the visit and for follow-up with them and/or the need for any referrals to a consulting specialist. The emergency department will also refer you to a specialist when appropriate. This referral assures that you have the opportunity for followup care with a specialist. All of these measure are taken in an effort to provide you with optimal care, which includes your followup. Under all circumstances we always encourage you to contact your private physician who remains a resource for coordinating your care. When calling for followup care, please make the office aware that this follow-up is from your recent emergency room visit. If for any reason you are refused follow-up, please contact the [facility] emergency department at and asked to speak to the emergency department charge nurse. Keflex as prescribed Carroll catheter care as discussed follow-up primary medical doctor return as needed as discussed[] - My Orders Last 24 Hours: My Active Orders 10/13/17 23:03 Pelvis Min 3V [CR] Stat 10/13/17 23:55 CULTURE URINE [RM] Stat UA W/MICROSCOPIC [URIN] Stat - Assessment/Plan Last 24 Hours: My Active Orders 10/13/17 23:03 Pelvis Min 3V [CR] Stat 10/13/17 23:55 CULTURE URINE [RM] Stat UA W/MICROSCOPIC [URIN] Stat
[2017-10-13] MEDS ORDERED: Iopamidol 612 MG/ML 100 ML Bottle IUTERINE ONE (23:43)
[2017-10-14] MEDS ORDERED: cefTRIAXone 1,000 MG VIAL ONE (00:37)
[2017-10-14 01:11] VITALS: BP 146/66
--- NOTE | 2017-10-14 09:42 | CR ---
EXAM DATE: 10/13/17 PATIENT'S AGE: 89 Patient: CLEMENTE PIMENTEL Facility: [place], [place] Site . Site : [id number] Study: XRay Pelvis [id number]/[id number] 11:42:48 PM Ordering Physician: Nayeli Zepdea Final Report: Indication: Went check Technique: Cigarette Machine Filler film of the pelvis initially performed. 50 cc Isovue 300 was then injected through the patient`s pre-existing Carroll catheter and filled and 5 minute delayed images of the pelvis were then obtained. 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 Mild degenerative changes in the left hip joint. Osteopenia. Nonspecific bowel gas pattern. Filled images demonstrate contrast opacifying a Carroll catheter and urinary bladder. 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 5 minute delayed images demonstrate no evidence for extravasation of contrast material. The Carroll catheter is within the inferior aspect of the urinary bladder. Carroll catheter in satisfactory position. No extravasation of contrast material. Dictated by Sheila Mcmahon MD @ Oct 14 2017 12:06AM (Electronic Signature) Report Signed by Proxy. NANCY
== END 2017-10-14 01:13 | disposition home or self-care (01) ==
LOC: MW.ED 22:10
DX: N39.0 Urinary tract infection, site not specified (principal); E78.00 Pure hypercholesterolemia, unspecified; I10 Essential (primary) hypertension; Z86.73 Personal history of transient ischemic attack (TIA), and cerebral infarction without residual deficits; E11.9 Type 2 diabetes mellitus without complications; E03.9 Hypothyroidism, unspecified; Z79.899 Other long term (current) drug therapy; Z96.0 Presence of urogenital implants
CPT/HCPCS: 36415; 72190; 80053; 81001; 85025; 85610; 87086; 96372; 99284; J0696; Q9967; 99283